=== PATIENT | female | born 1975 | race Caucasian/White ===

== ENCOUNTER 2021-05-18 21:58 | Emergency (ER) | payer SELFPAY ==
[~2021-05-18] VITALS: Ht 172 cm; Wt 85.0 kg
[2021-05-18 23:35] LABS: BILIRUBIN,URINE 1+ (NEGATIVE); CLARITY,URINE CLEAR; COLOR,URINE ORANGE; GLUCOSE, URINE (UA) NEGATIVE (NEGATIVE); KETONES,URINE NEGATIVE (NEGATIVE); LEUKOCYTE ESTERASE ,URINE NEGATIVE (NEGATIVE); NITRITE,URINE NEGATIVE (NEGATIVE); PROTEIN,URINE 1+ (NEGATIVE)
[2021-05-18 23:46] LABS: AMPHETAMINE SCREEN, URINE POSITIVE (NEGATIVE); BENZODIAZEPINES SCREEN URINE NEGATIVE (NEGATIVE); COCAINE SCREEN URINE NEGATIVE (NEGATIVE); HCG,QUALITATIVE URINE NEGATIVE (NEGATIVE); METHAMPHETAMINE SCREEN URINE S POSITIVE (NEGATIVE)
[2021-05-18 23:47] LABS: BACTERIA,URINE NEGATIVE /HPF; BARBITURATE SCREEN URINE NEGATIVE (NEGATIVE); CANNABINOID SCREEN, URINE NEGATIVE (NEGATIVE); METHADONE STAT NEGATIVE (NEGATIVE); OPIATE SCREEN URINE NEGATIVE (NEGATIVE); OXYCODONE STAT NEGATIVE (NEGATIVE); PROPOXYPHENE STAT NEGATIVE (NEGATIVE); TRICYCLIC ANTIDEPRESSANTS SCRE NEGATIVE (NEGATIVE)
[2021-05-19] MEDS ORDERED: CYCL10TA9 PO (00:48)
[2021-05-19] MEDS ORDERED: NAPR500T8 PO (00:48)
--- NOTE | 2021-05-19 00:48 | ED Back Pain ---
General Chief Complaint: Back Problems Stated Complaint: BACK PAIN Nursing Triage Note: Pt to ED via [facility] EMs. Pt reports low back pain starting on 05/13. Pt saw chiropractor with no relief. Pt has been taking Tylenol at home for pain relief, stating she is taking #6 500mg tablets at a time for pain relief. 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 Source of Information: Patient History of Present Illness Date Seen by Provider: May 18, 2021 Time Seen by Provider: 23:10 Initial Comments PT ARRIVES VIA [facility] C/O LOWER BACK PAIN SINCE Sunday05/13/21 NO KNOWN INJURY HAS HAD BACK PAIN FOR OVER 10 YEARS NO RADIATION OF PAIN NO PARESTHESIAS OR MOTOR DEFICITS NO PROBLEMS WITH BOWEL OR BLADDER FUNCTION NO URINARY SYMPTOMS WENT TO CHIROPRACTOR ON Sunday05/16/21--NO RELIEF TOOK ADVIL AND TYLENOL WITHOUT RELIEF LMP--COUPLE OF MONTHS AGO, HAS BEEN SPOTTING OFF AND ON. PT HAS HAD BTL. HAS NOT HAD COVID VACCINE DENIES ANY SICK CONTACTS DENIES COVID-19 SYMPTOMS Other Comments PCP: [facility] Allergies and Home Medications Allergies Coded Allergies: No Known Drug Allergies (Unverified , 05/18/21) Home Medications Cyclobenzaprine HCl 10 Mg Tablet, 10 MG PO Q8H PRN for SPASMS Prescribed by: EDWARD CHI on 05/19/2147 Naproxen 500 Mg Tablet.dr, 500 MG PO BID Prescribed by: EDWARD CHI on 05/19/2147 Patient Home Medication List Home Medication List Reviewed: Yes Review of Systems Constitutional: no symptoms reported Respiratory: no symptoms reported Cardiovascular: no symptoms reported Gastrointestinal: no symptoms reported Genitourinary: no symptoms reported Control/STD Prophylaxis: Other (BTL) Musculoskeletal: see HPI, back pain Skin: no symptoms reported Psychiatric/Neurological: No Symptoms Reported Past Gasratd-Tyxyhx-Mkgysh Hx Patient Social History Tobacco Use?: Yes (1 PPD) Tobacco type used: Cigarettes Smoking Status: Current Everyday Smoker Use of E-Cig and/or Vaping dev: No Use of E-Cig and/or Vaping Rasta: Never a User Substance use?: Yes Substance type: Methamphetamine Additional substance use comme: + IV METH USE Substance frequency: Several times a month Alcohol Use?: No Pt feels they are or have been: No Past Medical History Surgery/Hospitalization HX: reports no PMH; surgical hx - gallbladder, BTL Surgeries: Yes Gallbladder, Tubal Ligation Respiratory: No Cardiac: No Neurological: No : No Female Reproductive Disorders: Menstrual Problems Genitourinary: No Gastrointestinal: No Musculoskeletal: Yes Chronic Back Pain Endocrine: No HEENT: Yes (POOR DENTITION) Cancer: No Psychosocial: Yes (SUBSTANCE ABUSE) Integumentary: No Blood Disorders: No Physical Exam Vital Signs Vital Signs - First Documented 05/18/21 22:19 Temp 37.0 Pulse 98 Resp 18 B/P (MAP) 120/66 (84) Pulse Ox 96 O2 Delivery Room Air Capillary Refill : Less Than 3 Seconds Height, Weight, BMI Height: '" Weight: lbs. oz. kg; 28.00 BMI Method: General Appearance: Other (EXTREMELY DRAMATIC WHEN STAFF IN ROOM--MOANING, WAILING, MOVING VERY SLOWLY AND VERY DRAMATICALLY. PT IS SLEEPING WITH BLANKET OVER HER HEAD WHEN STAFF LEAVE ROOM. PT FILTHY, MALODOROUS--ODOR OF SKUNK/CAT URINE, WEARING ONLY A T-SHIRT AND UNDERWEAR. NO SHOES--SOLES OF FEET ARE BLACK; SPEECH RAPID AND SOMEWHAT MUMBLED) HEENT: Other (POOR DENTITION--EXTENSIVE DECAY AND MULTIPLE MISSING TEETH) Neck: Full Range of Motion, Normal Inspection, Non Tender, Supple Cardiovascular: Regular Rate, Rhythm, No Edema, No Murmur Respiratory: Normal Breath Sounds, No Accessory Muscle Use, No Respiratory Distress Gastrointestinal: Non Tender, Soft Back: No CVA Tenderness, Other (MIDLINE LOWER LUMBAR TENDERNESS. ) Extremity: Normal Inspection Neurologic/Psychiatric: Alert, Oriented x3, No Motor/Sensory Deficits, chief optometry service II- XII Norm as Tested Skin: Normal Color, Warm/Dry, Tattoos/Piercings (EXTENSIVE TATTOOS), Other (MULTIPLE SORES/SCARS/SCABS TO FACE, ARMS. ) Progress/Results/Core Measures Results/Orders Lab Results Laboratory Tests Test 05/18/21 23:30 Range/Units Urine Color ORANGE Urine Clarity CLEAR Urine pH 6.0 5-9 Urine Specific [place] >=1.030 1.016-1.022 Urine Protein 1+ H NEGATIVE Urine Glucose (UA) NEGATIVE NEGATIVE Urine Ketones NEGATIVE NEGATIVE Urine Nitrite NEGATIVE NEGATIVE Urine Bilirubin 1+ H NEGATIVE Urine Urobilinogen 2.0 < = 1.0 MG/DL Urine Leukocyte Esterase NEGATIVE NEGATIVE Urine RBC (Auto) NEGATIVE NEGATIVE Urine RBC 5-10 H /HPF Urine WBC 5-10 H /HPF Urine Squamous Epithelial Cells 5-10 /HPF Urine Renal Epithelial Cells NONE /HPF Urine Crystals NONE /LPF Urine Bacteria NEGATIVE /HPF Urine Casts NONE /LPF Urine Mucus MODERATE H /LPF Urine Culture Indicated NO Urine Test NEGATIVE NEGATIVE Urine Opiates Screen NEGATIVE NEGATIVE Urine Oxycodone Screen NEGATIVE NEGATIVE Urine Methadone Screen NEGATIVE NEGATIVE Urine Propoxyphene Screen NEGATIVE NEGATIVE Urine Barbiturates Screen NEGATIVE NEGATIVE Ur Tricyclic Antidepressants Screen NEGATIVE NEGATIVE Urine Phencyclidine Screen NEGATIVE NEGATIVE Urine Amphetamines Screen POSITIVE H NEGATIVE Urine Methamphetamines Screen POSITIVE H NEGATIVE Urine Benzodiazepines Screen NEGATIVE NEGATIVE Urine Cocaine Screen NEGATIVE NEGATIVE Urine Cannabinoids Screen NEGATIVE NEGATIVE My Orders Orders - EDWARD CHI DO Drug Screen Stat (Urine) (05/18/21 22:55) Hcg,Qualitative Urine (05/18/21 22:55) Lumbar Spine - 2-3 Views (05/19/21 00:01) Ketorolac Injection (Toradol Injection) (05/19/21 01:00) Orphenadrine Inj (Ed Only) (Norflex Inje (05/19/21 01:00) Diphenhydramine Injection (Benadryl Inje (05/19/21 01:00) Medications Given in ED Current Medications Medications Dose Ordered Sig/Ace Route Start Time Stop Time Status Last Admin Dose Admin Diphenhydramine HCl 25 mg ONCE ONCE IM 05/19/21 01:00 05/19/21 01:01 DC 05/19/21 01:05 25 MG Ketorolac Tromethamine 60 mg ONCE ONCE IM 05/19/21 01:00 05/19/21 01:01 DC 05/19/21 01:05 60 MG Orphenadrine Citrate 60 mg ONCE ONCE IM 05/19/21 01:00 05/19/21 01:01 DC 05/19/21 01:05 60 MG Vital Signs/I&O 05/18/21 05/19/21 22:19 01:19 Temp 37.0 37.0 Pulse 98 98 Resp 18 18 B/P (MAP) 120/66 (84) 109/49 (84) Pulse Ox 96 96 O2 Delivery Room Air Blood Pressure Mean: 84 Progress Progress Note : Progress Note GIVEN TORADOL, NORFLEX AND BENADRYL WITH SOME IMPROVEMENT IN SYMPTOMS Departure Impression Primary Impression: Low back pain Additional Impressions: Chronic back pain Methamphetamine use Disposition: 01 HOME, SELF-CARE Condition: Stable Departure-Patient Inst. Decision time for Depature: 00:40 Referrals: [facility] Patient Instructions: Low Back Pain (DC) Add. Discharge Instructions: MOIST HEAT TO AREA AT 20 MINUTE INTERVALS NO LIFTING OVER 5 LBS, NO TWISTING OR BENDING AT WAIST FOLLOW UP WITH [facility] IN 3-4 DAYS IF NO BETTER All discharge instructions reviewed with patient and/or family. Voiced unders tanding. Scripts Naproxen (Naproxen) 500 Mg Tablet.dr 500 MG PO BID, #20 TAB Prov: EDWARD CHI DO 05/19/21 Cyclobenzaprine HCl (Cyclobenzaprine HCl) 10 Mg Tablet 10 MG PO Q8H PRN for SPASMS, #15 TAB 0 Refills Prov: EDWARD CHI DO 05/19/21 EDWARD CHI DO May 19, 2021 00:48
[2021-05-19] MEDS ORDERED: ORPHENADRINE 60 MG/2 ML (NORFLEX) AMP (ED ONLY) IM ONE (01:00)
[2021-05-19] MEDS ORDERED: KETOROLAC 60 MG/2 ML VIAL IM ONE (01:00)
[2021-05-19] MEDS ORDERED: diphenhydrAMINE 50 MG/ML INJ (BENADRYL) IM ONE (01:00)
[2021-05-19 01:19] VITALS: BP 109/49
--- NOTE | 2021-05-19 07:06 | Diagnostic Imaging Report ---
EXAM: Lumbar spine radiographs Exam date: 05/19/2021 COMPARISON: None. HISTORY: Low back pain. TECHNIQUE: 3 views of the lumbar spine. FINDINGS: Vertebral body heights and alignment are normal. There is mild lumbar spondylosis. No acute fracture, dislocation, or destructive osseous process is seen. There appears to be some foraminal stenosis at L5-S1 secondary to facet hypertrophy. Disc heights are preserved. IMPRESSION: Degenerative changes of lumbar spine without acute osseous abnormality. Dictated by: Dictated on workstation # [id number]
== END 2021-05-19 01:19 | disposition home or self-care (01) ==
LOC: EDUNIT# 21:58 → ER 22:01
DX: G89.29 Other chronic pain (principal); M54.5 Low back pain; F15.90 Other stimulant use, unspecified, uncomplicated; F17.210 Nicotine dependence, cigarettes, uncomplicated; Z32.02 Encounter for pregnancy test, result negative
CPT/HCPCS: 72100; 80306; 81000; 84703; 96372

== ENCOUNTER 2021-06-24 18:30 | Emergency (ER) | payer SELFPAY ==
[~2021-06-24] VITALS: Ht 172.7 cm; Wt 81.2 kg
[2021-06-24 19:14] LABS: BASOPHILS # (AUTO) 0.1 10^3/uL (0.0-0.1); BASOPHILS % (AUTO) 1 % (0-10); EOSINOPHILS # (AUTO) 0.1 10^3/uL (0.0-0.3); EOSINOPHILS % (AUTO) 0 % (0-10); HEMATOCRIT 35 % (35-52); HEMOGLOBIN 11.1 g/dL (11.5-16.0); LYMPHOCYTES # (AUTO) 2.2 10^3/uL (1.0-4.0); LYMPHOCYTES % (AUTO) 16 % (12-44); MEAN CORPUSCULAR HEMOGLOBIN 28 pg (25-34); MEAN CORPUSCULAR HGB CONC 32 g/dL (32-36); MEAN CORPUSCULAR VOLUME 88 fL (80-99); MEAN PLATELET VOLUME 9.1 fL (9.0-12.2); MONOCYTES # (AUTO) 0.7 10^3/uL (0.0-1.0); MONOCYTES % (AUTO) 5 % (0-12); NEUTROPHILS # (AUTO) 10.8 10^3/uL (1.8-7.8); NEUTROPHILS % (AUTO) 78 % (42-75); PLATELET COUNT 530 10^3/uL (130-400); WHITE BLOOD COUNT 13.9 10^3/uL (4.3-11.0)
--- NOTE | 2021-06-24 19:32 | ED Back Pain ---
General Chief Complaint: Back Problems Stated Complaint: BACK PAIN, POSSIBLE ABSCESS Nursing Triage Note: PT TO FT2 FOR FURTHER EVALUATION OF OSTEOMYLETIS OF SPINE. WAS SENT BY [facility] FOR FURTHER WORK UP. Source of Information: Patient Exam Limitations: No Limitations (LALY AYALA STUDENT) History of Present Illness Date Seen by Provider: Jun 24, 2021 Time Seen by Provider: 19:00 Initial Comments Pt presents to ED via private conveyance with complaints of low back pain. She states that it started about 6wks ago and has been seeing Dr. Donaldson at [facility]. The pain has been worsening since it began, currently rates it 6/10 to her L lower back with occasional shooting pain down her LLE to her toes. She has been having progressive difficulty with weight bearing and using a chair to get around at home. She has been taking 2500mg Tylenol TID for about 2wks that helps with the pain; last has taken 4500mg today. She had an MRI today that shows osteomyelitis with possible epidural abscess at L5-S1; Dr Donaldson was unable to find a hospital for transfer so she was told to come to the ED. She has had 2x episodes of fever/chills this past week. Denies chest pain, SOB, N/V. She is a prior IV Meth user, stopped about 2mos ago. Location: Lumbar Spine (L lumbo-sacral) Timing/Duration: Other (6wks) Severity: Moderate Pain/Injury Location: Back (L lower back) Radiation: Other (radiation down LLE to toes) Method of Injury: Other (IVDU) Modifying Factors: Improves With Immobilization; Worse With Movement; Improves With Pain Medication (2500mg Acetaminophen TID), Improves With Rest Associated Symptoms: fever; No numbness in legs/feet, No tingling in legs/feet, No sensory/motor loss; other (tingling in BUE) (LALY AYALA STUDENT) Initial Comments Mili (YOBANY CROSS APRN) Allergies and Home Medications Allergies Coded Allergies: No Known Drug Allergies (Unverified , 05/18/21) Home Medications Cyclobenzaprine HCl 10 Mg Tablet, 10 MG PO Q8H PRN for SPASMS Prescribed by: EDWARD CHI on 05/19/21 0048 Naproxen 500 Mg Tablet.dr, 500 MG PO BID Prescribed by: EDWARD CHI on 05/19/21 0048 Patient Home Medication List Home Medication List Reviewed: Yes (LALY AYALA) Review of Systems Constitutional: chills, fever EENTM: No ear pain, No vision loss Respiratory: No cough, No hemoptysis, No short of breath Cardiovascular: No chest pain, No edema Gastrointestinal: No abdominal pain, No constipation; diarrhea (1x episode of dark loose stool earlier today) Genitourinary: No dysuria, No frequency, No hematuria Musculoskeletal: back pain (L lumbo-sacral); No joint swelling, No muscle pain Skin: No change in color, No change in hair/nails Psychiatric/Neurological: Denies Headache, Denies Numbness, Denies Paresthesia (LALY AYALA) All Other Systems Reviewed Negative Unless Noted: Yes (LALY AYALA) Past Rcbxdqw-Rzisal-Lsjqyx Hx Patient Social History Tobacco Use?: Yes Smoking Status: Current Everyday Smoker Use of E-Cig and/or Vaping dev: No Substance use?: No Alcohol Use?: No Pt feels they are or have been: No (LALY AYALA) Seasonal Allergies Seasonal Allergies: No (LALY AYALA) Past Medical History Surgery/Hospitalization HX: reports no PMH; surgical hx - gallbladder, BTL Surgeries: Yes Gallbladder, Tubal Ligation Respiratory: No Cardiac: No Neurological: No Female Reproductive Disorders: Menstrual Problems Genitourinary: No Gastrointestinal: No Musculoskeletal: Yes Chronic Back Pain Endocrine: No HEENT: Yes (POOR DENTITION) Cancer: No Psychosocial: Yes (SUBSTANCE ABUSE) Integumentary: No Blood Disorders: No (LALY AYALA) Physical Exam Vital Signs Vital Signs - First Documented 06/24/21 18:41 Temp 36.8 Pulse 120 Resp 22 B/P (MAP) 119/68 (85) Pulse Ox 97 O2 Delivery Room Air (YOBANY CROSS APRN) Vital Signs Capillary Refill : Less Than 3 Seconds (LALY AYALA STUDENT) Height, Weight, BMI Height: '" Weight: lbs. oz. kg; 27.00 BMI Method: General Appearance: No Apparent Distress, WD/WN HEENT: PERRL/EOMI, Normal ENT Inspection, Pharynx Normal Neck: Full Range of Motion, Normal Inspection, Non Tender, Supple Cardiovascular: Regular Rate, Rhythm, No Edema, No Murmur, Normal Peripheral Pulses Respiratory: Chest Non Tender, Lungs Clear, Normal Breath Sounds, No Accessory Muscle Use, No Respiratory Distress Peripheral Pulses: 2+ Dorsalis Pedis (R), 2+ Left Dors-Pedis (L), 2+ Radial Pulses (R), 2+ Radial Pulses (L) Gastrointestinal: Normal Bowel Sounds, Soft; No Distended, No Guarding; Tenderness (mild tenderness to RUQ, negative [place] sign) Back: Normal Inspection, No CVA Tenderness, No Vertebral Tenderness, Other (tenderness to L lumbosacral junction, radiation down LLE) Extremity: Normal Capillary Refill, Normal Inspection, Non Tender, No Calf Tenderness, No Pedal Edema, Other (limited ROM/weightbearing LLE, uses chair at home for mobility) Neurologic/Psychiatric: Alert, Oriented x3, No Motor/Sensory Deficits, Normal Mood/Affect Skin: Normal Color, Warm/Dry Lymphatic: No Adenopathy (LALY AYALA MED STUDENT) Distal pulses of the feet are 2+ bilaterally. Reflexes intact. No saddle anesthesia or loss of bowel or bladder control. Strength bilateral lower extremities with plantarflexion and dorsiflexion of the foot is 5 out of 5 bilaterally. Normal sensation without tingling or paresthesias. (YOBANY CROSS APRN) Progress/Results/Core Measures Results/Orders Lab Results Laboratory Tests Test 06/24/21 18:50 06/24/21 20:03 Range/Units White Blood Count 13.9 H 4.3-11.0 10^3/uL Red Blood Count 3.94 3.80-5.11 10^6/uL Hemoglobin 11.1 L 11.5-16.0 g/dL Hematocrit 35 35-52 % Mean Corpuscular Volume 88 80-99 fL Mean Corpuscular Hemoglobin 28 25-34 pg Mean Corpuscular Hemoglobin Concent 32 32-36 g/dL Red Cell Distribution Width 13.4 10.0-14.5 % Platelet Count 530 H 130-400 10^3/uL Mean Platelet Volume 9.1 9.0-12.2 fL Immature Granulocyte % (Auto) 1 % Neutrophils (%) (Auto) 78 H 42-75 % Lymphocytes (%) (Auto) 16 12-44 % Monocytes (%) (Auto) 5 0-12 % Eosinophils (%) (Auto) 0 0-10 % Basophils (%) (Auto) 1 0-10 % Neutrophils # (Auto) 10.8 H 1.8-7.8 10^3/uL Lymphocytes # (Auto) 2.2 1.0-4.0 10^3/uL Monocytes # (Auto) 0.7 0.0-1.0 10^3/uL Eosinophils # (Auto) 0.1 0.0-0.3 10^3/uL Basophils # (Auto) 0.1 0.0-0.1 10^3/uL Immature Granulocyte # (Auto) 0.1 0.0-0.1 10^3/uL Erythrocyte Sedimentation Rate 68 H 0-20 MM/HR Sodium Level 141 135-145 MMOL/L Potassium Level 3.4 L 3.6-5.0 MMOL/L Chloride Level 108 H 98-107 MMOL/L Carbon Dioxide Level 22 21-32 MMOL/L Anion Gap 11 5-14 MMOL/L Blood Urea Nitrogen 13 7-18 MG/DL Creatinine 0.69 0.60-1.30 MG/DL Estimat Glomerular Filtration Rate 92 BUN/Creatinine Ratio 19 Glucose Level 92 70-105 MG/DL Lactic Acid Level 0.59 0.50-2.00 MMOL/L Calcium Level 10.2 H 8.5-10.1 MG/DL Corrected Calcium 10.3 H 8.5-10.1 MG/DL Total Bilirubin 0.3 0.1-1.0 MG/DL Aspartate Amino Transf (AST/SGOT) 15 5-34 U/L Alanine Aminotransferase (ALT/SGPT) 19 0-55 U/L Alkaline Phosphatase 104 40-136 U/L C-Reactive Protein High Sensitivity 2.22 H 0.00-0.50 MG/DL Total Protein 8.6 H 6.4-8.2 GM/DL Albumin 3.9 3.2-4.5 GM/DL Acetaminophen Level 13 10-30 UG/ML Urine Color YELLOW Urine Clarity SL CLOUDY Urine pH 5.0 5-9 Urine Specific [place] >=1.030 1.016-1.022 Urine Protein TRACE H NEGATIVE Urine Glucose (UA) NEGATIVE NEGATIVE Urine Ketones TRACE H NEGATIVE Urine Nitrite NEGATIVE NEGATIVE Urine Bilirubin 1+ H NEGATIVE Urine Urobilinogen 1.0 < = 1.0 MG/DL Urine Leukocyte Esterase NEGATIVE NEGATIVE Urine RBC (Auto) NEGATIVE NEGATIVE Urine RBC NONE /HPF Urine WBC 0-2 /HPF Urine Squamous Epithelial Cells 10-25 H /HPF Urine Crystals NONE /LPF Urine Bacteria MODERATE H /HPF Urine Casts NONE /LPF Urine Mucus MODERATE H /LPF Urine Culture Indicated YES Urine Opiates Screen NEGATIVE NEGATIVE Urine Oxycodone Screen NEGATIVE NEGATIVE Urine Methadone Screen NEGATIVE NEGATIVE Urine Propoxyphene Screen NEGATIVE NEGATIVE Urine Barbiturates Screen NEGATIVE NEGATIVE Ur Tricyclic Antidepressants Screen NEGATIVE NEGATIVE Urine Phencyclidine Screen NEGATIVE NEGATIVE Urine Amphetamines Screen NEGATIVE NEGATIVE Urine Methamphetamines Screen NEGATIVE NEGATIVE Urine Benzodiazepines Screen NEGATIVE NEGATIVE Urine Cocaine Screen NEGATIVE NEGATIVE Urine Cannabinoids Screen NEGATIVE NEGATIVE (YOBANY CROSS APRN) My Orders Orders - YOBANY CROSS APRN Cbc With Automated Diff (06/24/21 19:08) Erythrocyte Sedimentation Rate (06/24/21 19:08) Hs C Reactive Protein (06/24/21 19:08) Blood Culture (06/24/21 19:08) Lactic Acid Analyzer (06/24/21 19:08) Ua Culture If Indicated (06/24/21 19:08) Drug Screen Stat (Urine) (06/24/21 19:08) Ed Iv/Invasive Line Start (06/24/21 19:08) Lactated Ringers (Lr 1000 Ml Iv Solution (06/24/21 19:45) Cefepime Injection (Maxipime Injection) (06/24/21 19:45) Vancomycin Injection (Vancomycin Injecti (06/24/21 19:45) Comprehensive Metabolic Panel (06/24/21 19:34) Acetaminophen (06/24/21 19:39) Fentanyl Inj (Sublimaze Injection) (06/24/21 20:00) Urine Culture (06/24/21 20:03) Vancomycin Injection (Vancomycin Injecti (06/24/21 20:46) Vancomycin Injection (Vancomycin Injecti (06/24/21 20:46) Ns (Ivpb) (Sodium Chloride 0.9%) (06/24/21 20:46) Ketorolac Injection (Toradol Injection) (06/24/21 21:15) Oxycodone/Apap 5/325mg Tablet (Percocet (06/24/21 22:45) (YOBANY CROSS APRN) Medications Given in ED Current Medications Medications Dose Ordered Sig/Ace Route Start Time Stop Time Status Last Admin Dose Admin Cefepime HCl 2000 mg/Sterile Water 20 ml @ 240 mls/hr ONCE ONCE IV 06/24/21 19:45 06/24/21 19:49 DC 06/24/21 20:57 240 MLS/HR Fentanyl Citrate 75 mcg ONCE ONCE IVP 06/24/21 20:00 06/24/21 20:01 DC 06/24/21 20:12 75 MCG Ketorolac Tromethamine 15 mg ONCE ONCE IVP 06/24/21 21:15 06/24/21 21:16 DC 06/24/21 21:30 15 MG (YOBANY CROSS SLOT OPERATIONS DIRECTOR) Vital Signs/I&O 06/24/21 18:41 Temp 36.8 Pulse 120 Resp 22 B/P (MAP) 119/68 (85) Pulse Ox 97 O2 Delivery Room Air (YOBANY CROSS SLOT OPERATIONS DIRECTOR) Blood Pressure Mean: 85 Progress Progress Note : Time: 01:35 Progress Note I attest that I saw this patient alongside the medical student and agree with his documented history, physical exam and review of systems except as otherwise noted. (SIMON HENDERSON) Departure Communication (Admissions) Family Conversation 2101-[facility] unable to accept. [facility] unable to accept. [place] control consulted for help finding a bed. I have seen the patient as well and agree with the clinical exam and the plan. She has significant low back pain that nearly has her bedbound. She did stop methamphetamine use 8 weeks ago and the symptoms began about 6 weeks ago. Former IV drug user. 2240-Dr Kelley at [facility] has accepted pt. [facility] [place] [place] NAME: MEL HUTCHINSON [facility] REC#: [id number] PT STATUS: REG CLI : 1975 PHYSICIAN: MARY REBOLLEDO ADMIT DATE: 06/24/21/RAD Draft Date of Exam:06/24/21 MRI LUMBAR SPINE W/O CONTRAST PROCEDURE: MRI lumbar spine. TECHNIQUE: Multiplanar, multisequence MRI of the lumbar spine was performed without contrast. INDICATION: Lower back pain with left lower extremity radiculopathy. COMPARISON: None. FINDINGS: For the purposes of this exam, last well-formed disc space is noted at the L5-S1 level. Static alignment is maintained. There is no significant anterolistheses or retrolisthesis. There is no evidence of jumped facets. There is, however, marked abnormal signal involving essentially the entirety of the vertebral bodies of L5 and S1. There is also severe loss of the intervertebral disc space with abnormal signal extending into the intervertebral disc space. There is also extension of the underlying process into the anterior prevertebral soft tissue structures as well as posteriorly in the epidural space. Epidural fluid collection/abscess cannot be entirely excluded. As a result, there is asymmetric narrowing of the spinal canal and stenosis of the left lateral recess. There is also extension into the left neuroforamen resulting in obliteration of normal fatty signal within the left neuroforamen. Findings are all concerning for osteomyelitis discitis with potential epidural abscess formation. No acute fracture is seen. L4 hemangioma is noted. Visualized portions of the distal cord are unremarkable. Conus terminates at approximately the L1-L2 level. No other abnormal intrathecal filling defect is seen. There are mild posterior disc bulges at L2-L3 and L3-L4. There is, however, no significant spinal canal or neuroforaminal stenosis throughout the remainder of the exam. IMPRESSION: Findings most concerning for L5-S1 osteomyelitis discitis with potential epidural abscess formation. Neurosurgical consultation is recommended. Report was called and faxed at 4:50 p.m., by dannie. Dictated on workstation # [id number] Dict: 06/24/21 1632 Trans: 06/24/21 1652 DANNIE [id number] Interpreted by: IAN COCHRAN MD Electronically signed by: (YOBANY CROSS APRN) Impression Primary Impression: Osteomyelitis of lumbar vertebra Additional Impression: Epidural abscess Disposition: T-[facility] Condition: Stable Transfer Transfer Reason: Exceeds level of care Time Spoke to Accepting Phy: 22:40 Transfer Progress Notes Yobany Cross APRN discussed the case with Dr. Rosen and the patient is ac cepted to [facility] the [place]. Transfer Time: 00:11 Transfer Facility: [facility] Method of Transfer: EMS ([facility]) (SIMON HENDERSON) Departure-Patient Inst. Referrals: [facility] [place] [facility] (PCP/Family) Primary Care Physician LALY AYALA STUDENT Jun 24, 2021 19:32 YOBANY CROSS APRN Jun 24, 2021 19:59 SIMON HENDERSON Jun 25, 2021 01:37
[2021-06-24] MEDS ORDERED: CEFEPIME INJECTION 2,000 MG in WATER (STERILE) FOR INJECTION 20 ML IV ONE (19:45)
[2021-06-24] MEDS ORDERED: LACTATED RINGERS 1,000 ML IV SCH (19:45)
[2021-06-24] MEDS ORDERED: VANCOMYCIN INJECTION 1,250 MG in NS (IVPB) 250 ML IV SCH (19:45)
[2021-06-24 19:55] LABS: ERYTHROCYTE SEDIMENTATION RATE 68 MM/HR (0-20)
[2021-06-24] MEDS ORDERED: fentaNYL INJ 100 MCG/2 ML AMP IVP ONE (20:00)
[2021-06-24 20:15] LABS: CLARITY,URINE SL CLOUDY; COLOR,URINE YELLOW; GLUCOSE, URINE (UA) NEGATIVE (NEGATIVE); KETONES,URINE TRACE (NEGATIVE); LEUKOCYTE ESTERASE ,URINE NEGATIVE (NEGATIVE); NITRITE,URINE NEGATIVE (NEGATIVE); PROTEIN,URINE TRACE (NEGATIVE)
[2021-06-24 20:16] LABS: ALBUMIN 3.9 GM/DL (3.2-4.5); POTASSIUM 3.4 MMOL/L (3.6-5.0)
[2021-06-24 20:17] LABS: CALCIUM 10.2 MG/DL (8.5-10.1)
[2021-06-24 20:19] LABS: TOTAL PROTEIN 8.6 GM/DL (6.4-8.2)
[2021-06-24 20:20] LABS: BILIRUBIN,TOTAL 0.3 MG/DL (0.1-1.0)
[2021-06-24 20:22] LABS: CREATININE SERUM 0.69 MG/DL (0.60-1.30)
[2021-06-24 20:25] LABS: AMPHETAMINE SCREEN, URINE NEGATIVE (NEGATIVE); BARBITURATE SCREEN URINE NEGATIVE (NEGATIVE); BENZODIAZEPINES SCREEN URINE NEGATIVE (NEGATIVE); CANNABINOID SCREEN, URINE NEGATIVE (NEGATIVE); COCAINE SCREEN URINE NEGATIVE (NEGATIVE); METHADONE STAT NEGATIVE (NEGATIVE); METHAMPHETAMINE SCREEN URINE S NEGATIVE (NEGATIVE); OPIATE SCREEN URINE NEGATIVE (NEGATIVE); OXYCODONE STAT NEGATIVE (NEGATIVE); PROPOXYPHENE STAT NEGATIVE (NEGATIVE); TRICYCLIC ANTIDEPRESSANTS SCRE NEGATIVE (NEGATIVE)
[2021-06-24 20:26] LABS: BILIRUBIN,URINE 1+ (NEGATIVE)
[2021-06-24 20:27] LABS: BACTERIA,URINE MODERATE /HPF; WBC,URINE 0-2 /HPF
[2021-06-24] MEDS ORDERED: NS (IVPB) 250 ML ONE (20:46)
[2021-06-24] MEDS ORDERED: VANCOMYCIN 500 MG/VIAL IV ONE (20:46)
[2021-06-24] MEDS ORDERED: VANCOMYCIN 1000 MG/VIAL ONE (20:46)
[2021-06-24] MEDS ORDERED: KETOROLAC 30 MG/ML VIAL IVP ONE (21:15)
[2021-06-24] MEDS ORDERED: oxyCODONE/APAP 5/325MG (PERCOCET 5) TABLET PO ONE (22:45)
[2021-06-25 00:10] VITALS: BP 111/67
== END 2021-06-25 00:11 | disposition short-term general hospital (02) ==
LOC: EDUNIT# 18:30 → ER 18:34
DX: M46.26 Osteomyelitis of vertebra, lumbar region (principal); G06.2 Extradural and subdural abscess, unspecified; F17.290 Nicotine dependence, other tobacco product, uncomplicated
CPT/HCPCS: 80053; 80306; 81000; 83605; 85025; 85652; 86141; 87040; 87088; 99284; G0480; 36415; 80329; 96374; 96375

== ENCOUNTER → 2021-06-24 | Outpatient (CLI) | payer SELFPAY ==
[~2021-06-24] MED LIST: CYCL10TA9 PO; NAPR500T8 PO
--- NOTE | 2021-06-24 16:54 | Diagnostic Imaging Report ---
PROCEDURE: MRI lumbar spine. TECHNIQUE: Multiplanar, multisequence MRI of the lumbar spine was performed without contrast. INDICATION: Lower back pain with left lower extremity radiculopathy. COMPARISON: None. FINDINGS: For the purposes of this exam, last well-formed disc space is noted at the L5-S1 level. Static alignment is maintained. There is no significant anterolistheses or retrolisthesis. There is no evidence of jumped facets. There is, however, marked abnormal signal involving essentially the entirety of the vertebral bodies of L5 and S1. There is also severe loss of the intervertebral disc space with abnormal signal extending into the intervertebral disc space. There is also extension of the underlying process into the anterior prevertebral soft tissue structures as well as posteriorly in the epidural space. Epidural fluid collection/abscess cannot be entirely excluded. As a result, there is asymmetric narrowing of the spinal canal and stenosis of the left lateral recess. There is also extension into the left neuroforamen resulting in obliteration of normal fatty signal within the left neuroforamen. Findings are all concerning for osteomyelitis discitis with potential epidural abscess formation. No acute fracture is seen. L4 hemangioma is noted. Visualized portions of the distal cord are unremarkable. Conus terminates at approximately the L1-L2 level. No other abnormal intrathecal filling defect is seen. There are mild posterior disc bulges at L2-L3 and L3-L4. There is, however, no significant spinal canal or neuroforaminal stenosis throughout the remainder of the exam. IMPRESSION: Findings most concerning for L5-S1 osteomyelitis discitis with potential epidural abscess formation. Neurosurgical consultation is recommended. Report was called and faxed at 4:50 p.m., by ruben. Dictated by: Dictated on workstation # [id number]
== END ==
LOC: RAD 13:15
PROVIDERS: ATTEND Nurse Practitioner Community Health
DX: M54.17 Radiculopathy, lumbosacral region (principal)
CPT/HCPCS: 72148

== ENCOUNTER 2021-07-09 12:01 | Emergency (ER) | payer SELFPAY ==
[~2021-07-09] VITALS: Ht 172.7 cm; Wt 75.7 kg
--- OUTSIDE RECORDS SUMMARY | 2021-07-09 12:06 | XMS REPORT | Encounter Summary ---
Author Author [facility] Organization [facility] Address Unknown Phone Unavailable Care Team Providers Care Assistant Women'S Rowing Coach Name Role Phone PCP Unavailable Encounter Details Care Team Description Date Type Department Vinnie, Default Authenticator [address] [place] [address] 06/24/2021 [facility] [email or web address] [facility] [employer] [facility] [address] [place] [address] Social History Date Tobacco Use Types Packs/Day Years Used Never Assessed Sex Assigned at Date Recorded Not on file documented as of this encounter Plan of Treatment Care Team Description Date Type Specialty Spencer Squires MD [address] [place] [address] [phone] 07/15/2021 Appointment Infusion Therapy Date/Time Name Type Priority Associated Diag noses 06/25/2021 3:38 AM CDT [employer] outside images External Films Routine for PACS documented as of this encounter Procedures Comments Procedure Name Priority Date/Time Associated Diag nosis P[employer]SH[employer] OUTSIDE IMAGES Routine 06/25/2021 FOR PACS 3:38 AM CDT documented in this encounter Visit Diagnoses Not on filedocumented in this encounter
--- OUTSIDE RECORDS SUMMARY | 2021-07-09 12:06 | XMS REPORT | Encounter Summary ---
Author Author [facility] Organization [facility] Address Unknown Phone Unavailable Care Team Providers Care Greenkeeper Name Role Phone Jefferson Donaldson DO PCP Encounter Details Care Team Description Date Type Department Janna Mercado MD [address] [place], [place] [id number] 06/24/2021 Orders for [facility] [address] [place] [id number] Social History Date Tobacco Use Types Packs/Day Years Used Never Assessed Sex Assigned at Date Recorded Not on file documented as of this encounter Plan of Treatment Care Team Description Date Type Specialty Spencer Squires MD [address] [place], [place] [id number] 07/15/2021 Appointment Infusion Therapy documented as of this encounter Visit Diagnoses Not on filedocumented in this encounter
--- OUTSIDE RECORDS SUMMARY | 2021-07-09 12:06 | XMS REPORT | Encounter Summary ---
Author Author [facility] Organization [facility] Address Unknown Phone Unavailable Care Team Providers Care Natural Sciences Manager Name Role Phone Jefferson Donaldson DO PCP Encounter Details Care Team Description Date Type Department Spencer Squires MD [address] [place], [place] [id number] 06/30/2021 Orders Only [facility] [address] [place], [place] [id number] Social History Date Tobacco Use Types Packs/Day Years Used Current Every Day Smoker 0.5 30 Smokeless Tobacco: Never Used Comments Alcohol Use Standard Drinks/Week Not Currently 0 (1 standard drink = 0.6 o z pure alcohol) Sex Assigned at Date Recorded Not on file documented as of this encounter Plan of Treatment Care Team Description Date Type Specialty Spencer Squires MD [address] [place] [address] [phone] 07/15/2021 Appointment Infusion Therapy documented as of this encounter Visit Diagnoses Not on filedocumented in this encounter
--- OUTSIDE RECORDS SUMMARY | 2021-07-09 12:06 | XMS REPORT | Encounter Summary ---
Author Author [facility] Organization [facility] Address Unknown Phone Unavailable Care Team Providers Care Court Manager Name Role Phone Jefferson Donaldson DO PCP Reason for Visit * Episode Based Medication (Routine) Referred By Contact Referred To Contact Status Reason Specialty Diagnoses / Procedures Spencer Squires MD [address] [place] [address] [facility] [address] [place] [address] Authorized Diagnoses Osteomyelitis of lumbar spine (HCC) P rocedures [place] INJECTION, DALBAVANCIN Encounter Details Care Team Description Date Type Department Spencer Squires MD [address] [place], [place] [id number] Osteomyelitis of lumbar spine (HCC) (Emiliana sanjay Dx) 07/08/2021 [facility] Encounter [address] [place] [address] Social History Date Tobacco Use Types Packs/Day Years Used Current Every Day Smoker 0.5 30 Smokeless Tobacco: Never Used Comments Alcohol Use Standard Drinks/Week Not Currently 0 (1 standard drink = 0.6 o z pure alcohol) Sex Assigned at Date Recorded Not on file documented as of this encounter Last Filed Vital Signs Reading Time Taken Comments Vital Sign 108/74 07/08/2021 11:01 AM CDT Blood Pressure 102 07/08/2021 11:01 AM CDT Pulse 37.1 C (98.8 F) 07/08/2021 11:01 AM CDT Temperature 18 07/08/2021 11:01 AM CDT Respiratory Rate 96% 07/08/2021 11:01 AM CDT Oxygen Saturation - - Inhaled Oxygen Concentration - - Weight - - Height - - Body Mass Index documented in this encounter Medications at Time of Discharge Start Date End Date Medication Sig Dispensed Refills 06/30/2021 08/11/2021 levoFLOXacin (LEVAQUIN) Take 1 tablet 42 tablet 0 750 MG tablet (750 mg total) by mouth daily. documented as of this encounter Plan of Treatment Care Team Description Date Type Specialty Spencer Squires MD [address] [place] [address] [phone] 07/15/2021 Appointment Infusion Therapy documented as of this encounter Visit Diagnoses Diagnosis Osteomyelitis of lumbar spine (HCC) - P rimary documented in this encounter Administered Medications Action Date Dose Rate Site Medication Order MAR Action 07/08/2021 11:14 AM CDT 1,000 mg 600 mL/hr dalbavancin 1,000 mg in dextrose (D5W) 5 New Bag % 250 mL IVPB 1,000 mg, Intravenous, Administer over 30 Minutes, Once, On Sun07/08/21 at 1100, For 1 dose, REFRIGERATE Infus e over 30 minutes. If a common IV line is being used to administer other drugs in addition to dalbavancin, the line shoul d be flushed before and after infusion with D5W. documented in this encounter
--- OUTSIDE RECORDS SUMMARY | 2021-07-09 12:06 | XMS REPORT | Encounter Summary ---
Author Author [facility] Organization [facility] Address Unknown Phone Unavailable Care Team Providers Care Tonal Regulator Name Role Phone DonaldsonPlacido gonzales Esperanza MCMAHON PCP Reason for Visit * Auth/Cert Referred By Contact Referred To Contact Status Reason Specialty Diagnoses / Procedures Diagnoses Osteomyelitis of lumbar spine Osteomyelitis of lumbar spine (HCC) Vertebral osteomyelitis (HCC) Encounter Details Care Team Description Date Type Department Hospitalist, Physician Devante Swartz DO [address] [place], [place] [id number] Spencer Squires MD [address] [place], [place] [phone] [facility] [id number] [facility]21 [place], [place] [id number] Social History Date Tobacco Use Types Packs/Day Years Used Current Every Day Smoker 0.5 30 Smokeless Tobacco: Never Used Tobacco Cessation: Ready to Quit: No Comments Alcohol Use Standard Drinks/Week Not Currently 0 (1 standard drink = 0.6 o z pure alcohol) Sex Assigned at Date Recorded Not on file documented as of this encounter Last Filed Vital Signs Reading Time Taken Comments Vital Sign 102/80 06/30/2021 11:33 AM CDT Blood Pressure 100 06/30/2021 11:33 AM CDT Pulse 37.3 C (99.2 F) 06/30/2021 11:33 AM CDT Temperature 18 06/30/2021 11:33 AM CDT Respiratory Rate 95% 06/30/2021 11:33 AM CDT Oxygen Saturation - - Inhaled Oxygen Concentration 81.5 kg (179 lb 9.6 oz) 06/30/2021 5:23 AM CDT Weight - - Height - - Body Mass Index documented in this encounter Discharge Summaries * Spencer Squires MD - 06/30/2021 12:47 PM CDT [facility] Discharge Summary Patient Name: Jill Marquez Age: 45 y.o. Sex: female Admission Date: 06/25/2021 Length of Stay: 5 Days Discharge Date: PCP on Record: Placido Donaldson, COAL SAMPLER Admission Diagnoses: Osteomyelitis of lumbar spine Osteomyelitis of lumbar spine (HCC) Vertebral osteomyelitis (HCC) Discharge Diagnoses: Principal Problem: Osteomyelitis of lumbar spine (HCC) Active Problems: IVDU (intravenous drug user) Consults: ID and IR, Neurosurgery Hospital Course: Patient is a 45-year-old female with a history of IV drug use who was transferre d from an outside hospital for osteomyelitis of the spine. Patient initially pr esented with 6-week history of progressive worsening of the back pain. On prese ntation at the outside hospital, patient was afebrile but tachycardic in 120s. Her blood pressure was 190/68 mmHg and patient was satting well on room air. In itial labs showed WBC count of 13.9, UDS was negative. MRI of the lumbar spine was obtained which showed osteomyelitis of L5-S1. Patient was started on vancom ycin and cefepime before transferring to [facility]. Patient was continue d on IV antibiotics upon transfer. Patient had an elevated ESR of 90 and CRP of 24. Neurosurgery and infectious diseases were consulted. Neurosurgery evaluat ed the patient and no surgical intervention was recommended. Interventional rad iology was consulted for disc aspiration and sampling. Cultures from disc aspir ation were negative. However, patient was already on antibiotics at the time of discoloration. Infectious diseases recommended continuing vancomycin and cefep ronny. A transthoracic echo was obtained which was negative for any infective end ocarditis. Given the patient's history with IV drug use, it is not ideal to sen d patient home with the PICC line. Patient was transitioned to dalbavancin per ID recommendations. She received her 1 dose out of 3 while inpatient. Patient is discharged home in a stable condition. She was discharged on levofloxacin an d outpatient infusion for the remaining 2 doses of dalbavancin was obtained. Physical Exam on Discharge Vitals: 06/30/21 0723 06/30/21 1133 BP: 116/71 102/80 Pulse: 101 100 Resp: 16 18 Temp: 36.7 C (98.1 F) 37.3 C (99.2 F) SpO2: 94% 95% Weight: General: In no acute distress Eyes: EOMI, normal sclera Mouth: moist mucosa Heart: regular rate and rhythm Lungs: unlabored breathing Abdomen: non-tender, non-distended Skin: warm, dry, intact MSK: no significant deformity Neuro: no focal deficits Psych: appropriate mood and affect Discharge Condition: stable Disposition: Home Diet: regular diet Activity: activity as tolerated Medications on Discharge Medication List START taking these medications levoFLOXacin 750 MG tablet Commonly known as: Levaquin 750 mg, Oral, Daily Where to Get Your Medications These medications were sent to [facility] [address] [facility] [id number] Hours: Sunday-Sunday 9:00am-5:30pm levoFLOXacin 750 MG tablet Ashley Lynne MD Internal Medicine, PGY-III cc: Placido Donaldson APRN I saw and examined the patient with Dr Ashley Lynne MD. I agree with Discharge Summary above. I have edited as appropriate to reflect my findings. Discharged on Dalbavancin x 3 weeks and Levaquin for 6 weeks Electronically signed: Spencer Squires M.D. documented in this encounter Discharge Instructions * Discharge Instr - Other Orders* Leon Sharma RN - 06/30/2021 11:15 AM CDT Outpatient infusion is located on the same end of the hospital as the [facility]. Please check in with the screeners and you will be directed to the green elevators to go up to the outpatient infusion center. Allow about an hour from time of check in to the end of your infusion. documented in this encounter Medications at Time of Discharge Start Date End Date Medication Sig Dispensed Refills 06/30/2021 08/11/2021 levoFLOXacin (LEVAQUIN) Take 1 tablet 42 tablet 0 750 MG tablet (750 mg total) by mouth daily. documented as of this encounter Progress Notes * Zoe Martinez MD - 06/30/2021 1:36 PM CDT [facility] INFECTIOUS DISEASE PROGRESS NOTE REASON FOR SEEING PATIENT: Vertebral osteomyelitis SUBJECTIVE: No acute events OBJECTIVE: Afebrile MEDICATIONS: Scheduled Medications: cefepime 2 g Intravenous Q8H MOON enoxaparin 40 mg Subcutaneous Q24H MOON lactobacillus-inulin 1 capsule Oral BID melatonin 6 mg Oral Nightly orphenadrine 60 mg Intravenous Q12H MOON Continuous Infusions: PRN Medications: acetaminophen OR acetaminophen, ALPRAZolam, aluminum-magnesium hydroxide-sim ethicone, benzocaine-menthoL, bisacodyL, docusate sodium, fentaNYL, guaiFENesin, magnesium sulfate, miconazole nitrate, nitroglycerin, ondansetron, oxyCODONE, p olyethylene glycol, potassium chloride OR potassium bicarb-citric acid OR* * potassium chloride in water, prochlorperazine OR prochlorperazine OR p rochlorperazine, sodium chloride, sodium chloride 0.9% LABORATORY RESULTS: Last CBC: Most Recent Result within the last 7 days Lab Units 06/30/21 0603 06/28/21 0719 06/25/21 0836 WBC TH/uL 8.46 8.33 8.76 HEMOGLOBIN g/dL 11.2* 10.2* 9.1* HEMATOCRIT % 34* 31* 27* PLATELET COUNT TH/uL 475* 444* 408* Last BMP: Most Recent Result within the last 7 days Lab Units 06/30/21 0603 06/28/21 0719 06/25/21 0836 SODIUM MEQ/L 133 139 143 POTASSIUM MEQ/L 4.5 4.4 3.8 CHLORIDE MEQ/L 98 103 109 CARBON DIOXIDE MEQ/L 23 25 23 BLOOD UREA NITROGEN mg/dL 21 13 15 CREATININE mg/dL 0.5 0.5 0.5 CALCIUM mg/dL 10.4 9.9 8.9 No results found for: PROCALCIT CULTURES: Results for orders placed or performed during the hospital encounter of 06/25/21 Culture, Blood Collection Time: 06/25/21 3:02 AM Specimen: Blood - Culture Result No growth at 2 days Narrative RIGHT AC 10ML Culture, Blood Collection Time: 06/25/21 3:13 AM Specimen: Blood - Culture Result No growth at 2 days Narrative LEFT AC 10ML MRSA Nasal PCR Collection Time: 06/25/21 3:20 AM Specimen: NASOPHARYNGEAL SWAB - MRSA PCR Not Detected Not Detected Source NPSWAB Culture, Anaerobe Collection Time: 06/25/21 6:02 PM Specimen: Disc - Culture Result No anaerobes isolated at 5 days Culture, AFB Collection Time: 06/25/21 6:02 PM Specimen: Disc - AFB Stain No Acid Fast Bacilli seen on fluorescent stain. Culture result Mycobacteriology Acid-Fast Culture In Progress Culture, Fungus Collection Time: 06/25/21 6:02 PM Specimen: DISC ASPIRATE - Fungus Culture Fungal culture in progress Culture, Wound with Gram Stain (Aerobic) Collection Time: 06/25/21 6:02 PM Specimen: DISC ASPIRATE - Gram Stain Rare Polymorphonuclear leukocytes Gram Stain No squamous epithelial cells seen Gram Stain No organisms seen Culture Result No growth at 3 days CULTURE SUMMARY: 06/25 disc aspirate in process SEROLOGIES: - IMAGING - PHYSICAL EXAMINATION: Vitals: 06/30/21 1133 BP: 102/80 Pulse: 100 Resp: 18 Temp: 37.3 C (99.2 F) TempSrc: Oral SpO2: 95% Weight: Temp (24hrs), Av.9 C (98.4 F), Min:36.6 C (97.9 F), Max:37.3 C (99 .2 F) - PROBLEM LIST: Principal Problem: Osteomyelitis of lumbar spine (HCC) Active Problems: IVDU (intravenous drug user) LOS: 5 days IMPRESSION: 1. L5-S1 osteomyelitis with question of an epidural abscess 2. History of IV drug use RECOMMENDATIONS Patient will discharge today on Dalvance She received one dose inpatient and will receive two more outpatient 1500 mg IV x 2 given 8 days apart and oral lev aquin 750 mg PO daily for 5 more weeks, that regimen will cover the patient for the 6-8 week duration of osteomyelitis treatment If patient can get follow up MRI then child protective services social worker help set up outpatient fo llow up for her The patient will not be able to follow up with the [facility] clinic currently but can call clinic with questions or concerns about the antibiotics or if can have follow up at end of treatment in 5-6 weeks Electronically signed by Zoe Martinez MD 06/30/2021 1:36 PM * May Clarke - 06/30/2021 7:32 AM CDT [facility] INFECTIOUS DISEASE PROGRESS NOTE REASON FOR SEEING PATIENT: Vertebral osteomyelitis SUBJECTIVE: Patient reports she is feeling well other than some back pain. Denies fevers, ch ills, abdominal pain, dysuria or frequency. Reports she might be discharged to y OBJECTIVE: Afebrile overnight WBC wnl Cr wnl, stable MEDICATIONS: Scheduled Medications: cefepime 2 g Intravenous Q8H MOON dalbavancin (DALVANCE) IVPB 1,500 mg Intravenous Once enoxaparin 40 mg Subcutaneous Q24H MOON lactobacillus-inulin 1 capsule Oral BID melatonin 6 mg Oral Nightly orphenadrine 60 mg Intravenous Q12H MOON Continuous Infusions: PRN Medications: acetaminophen OR acetaminophen, ALPRAZolam, aluminum-magnesium hydroxide-sim ethicone, benzocaine-menthoL, bisacodyL, docusate sodium, fentaNYL, guaiFENesin, magnesium sulfate, miconazole nitrate, nitroglycerin, ondansetron, oxyCODONE, p olyethylene glycol, potassium chloride OR potassium bicarb-citric acid OR* * potassium chloride in water, prochlorperazine OR prochlorperazine OR p rochlorperazine, sodium chloride, sodium chloride 0.9% LABORATORY RESULTS: Last CBC: Most Recent Result within the last 7 days Lab Units 06/30/21 0603 06/28/21 0719 06/25/21 0836 WBC TH/uL 8.46 8.33 8.76 HEMOGLOBIN g/dL 11.2* 10.2* 9.1* HEMATOCRIT % 34* 31* 27* PLATELET COUNT TH/uL 475* 444* 408* Last BMP: Most Recent Result within the last 7 days Lab Units 06/30/21 0603 06/28/21 0719 06/25/21 0836 SODIUM MEQ/L 133 139 143 POTASSIUM MEQ/L 4.5 4.4 3.8 CHLORIDE MEQ/L 98 103 109 CARBON DIOXIDE MEQ/L 23 25 23 BLOOD UREA NITROGEN mg/dL 21 13 15 CREATININE mg/dL 0.5 0.5 0.5 CALCIUM mg/dL 10.4 9.9 8.9 No results found for: PROCALCIT CULTURES: Results for orders placed or performed during the hospital encounter of 06/25/21 Culture, Blood Collection Time: 06/25/21 3:02 AM Specimen: Blood - Culture Result No growth at 2 days Narrative RIGHT AC 10ML Culture, Blood Collection Time: 06/25/21 3:13 AM Specimen: Blood - Culture Result No growth at 2 days Narrative LEFT AC 10ML MRSA Nasal PCR Collection Time: 06/25/21 3:20 AM Specimen: NASOPHARYNGEAL SWAB - MRSA PCR Not Detected Not Detected Source NPSWAB Culture, Anaerobe Collection Time: 06/25/21 6:02 PM Specimen: Disc - Culture Result No anaerobes isolated at 4 days Culture, AFB Collection Time: 06/25/21 6:02 PM Specimen: Disc - AFB Stain No Acid Fast Bacilli seen on fluorescent stain. Culture result Mycobacteriology Acid-Fast Culture In Progress Culture, Fungus Collection Time: 06/25/21 6:02 PM Specimen: DISC ASPIRATE - Fungus Culture Fungal culture in progress Culture, Wound with Gram Stain (Aerobic) Collection Time: 06/25/21 6:02 PM Specimen: DISC ASPIRATE - Gram Stain Rare Polymorphonuclear leukocytes Gram Stain No squamous epithelial cells seen Gram Stain No organisms seen Culture Result No growth at 3 days CULTURE SUMMARY: 06/25 Blood cultures x 2: NGTD 2 days 06/25 MRSA nasal PCR: Not detected 06/25 Wound culture (Disc aspirate): no growth at 2 days, updated 06/28 06/25 Fungus culture (Disc aspirate): culture in progress 06/25 AFB (Disc): no AFB seen on fluorescent stain, culture in progress 06/25 Anaerobes (Disc): In progress SEROLOGIES: COVID PCR negative HIV negative Hepatitis negative IMAGING 06/27 Echo TTE 1. Normal LV and RV size and systolic function. LVEF estimated at 60%. 2. Normal diastolic function. 3. No significant valvular abnormalities. 4. No obvious valvular vegetations. If high clinical suspicion for endoc arditis, consider MACIE. 06/26 MRI lumbar spine w wo contrast Acute discitis osteomyelitis at L5-S1 with prominent enhancing epidural phlegmon resulting in left lateral recess effacement and mild spinal canal narrowing at L5-S1. No epidural abscess. Peripherally enhancing fluid in the L5-S1 disc extends into the prevertebral soft tissues with a tiny prevertebral abscess at L5-S1. PHYSICAL EXAMINATION: Vitals: 06/30/21 0723 BP: 116/71 Pulse: 101 Resp: 16 Temp: 36.7 C (98.1 F) TempSrc: Oral SpO2: 94% Weight: Temp (24hrs), Av.8 C (98.3 F), Min:36.6 C (97.9 F), Max:37.1 C (98 .8 F) PROBLEM LIST: Principal Problem: Osteomyelitis of lumbar spine (HCC) Active Problems: IVDU (intravenous drug user) LOS: 5 days IMPRESSION: 1. L5-[id number], no epidural abscess 1. S/P IR guided aspiration, no culture growth to date 2. History of IV drug use 1. TTE is negative RECOMMENDATIONS Student note for learning, pending review and addendum by Dr. Martinez Continue empiric vanco and cefepime, 6 weeks IV antibiotics (06/25 start) Trend cultures No PICC line for now Electronically signed by May Clarke MD 06/30/2021 7:33 AM Associated attestation - Zoe Martinez MD - 06/30/2021 1:43 PM CDT This is a medical student note. It is for student learning purposes only. No rec ommendations should be taken from this note. It has been reviewed and acknowledg ed by me. Electronically signed by Zoe Martinez MD 06/30/2021 1:43 PM * Zoe Martinez MD - 06/29/2021 1:55 PM CDT [facility] INFECTIOUS DISEASE PROGRESS NOTE REASON FOR SEEING PATIENT: Vertebral osteomyelitis SUBJECTIVE: No acute events OBJECTIVE: Afebrile MEDICATIONS: Scheduled Medications: cefepime 2 g Intravenous Q8H MOON enoxaparin 40 mg Subcutaneous Q24H MOON lactobacillus-inulin 1 capsule Oral BID melatonin 6 mg Oral Nightly orphenadrine 60 mg Intravenous Q12H MOON vancomycin 1,250 mg Intravenous Q12H Continuous Infusions: PRN Medications: acetaminophen OR acetaminophen, ALPRAZolam, aluminum-magnesium hydroxide-sim ethicone, benzocaine-menthoL, bisacodyL, docusate sodium, fentaNYL, guaiFENesin, magnesium sulfate, miconazole nitrate, nitroglycerin, ondansetron, oxyCODONE, p olyethylene glycol, potassium chloride OR potassium bicarb-citric acid OR* * potassium chloride in water, prochlorperazine OR prochlorperazine OR p rochlorperazine, sodium chloride, sodium chloride 0.9% LABORATORY RESULTS: Last CBC: Most Recent Result within the last 7 days Lab Units 06/28/21 0719 06/25/21 0836 WBC TH/uL 8.33 8.76 HEMOGLOBIN g/dL 10.2* 9.1* HEMATOCRIT % 31* 27* PLATELET COUNT TH/uL 444* 408* Last BMP: Most Recent Result within the last 7 days Lab Units 06/28/21 0719 06/25/21 0836 SODIUM MEQ/L 139 143 POTASSIUM MEQ/L 4.4 3.8 CHLORIDE MEQ/L 103 109 CARBON DIOXIDE MEQ/L 25 23 BLOOD UREA NITROGEN mg/dL 13 15 CREATININE mg/dL 0.5 0.5 CALCIUM mg/dL 9.9 8.9 No results found for: PROCALCIT CULTURES: Results for orders placed or performed during the hospital encounter of 06/25/21 Culture, Blood Collection Time: 06/25/21 3:02 AM Specimen: Blood - Culture Result No growth at 2 days Narrative RIGHT AC 10ML Culture, Blood Collection Time: 06/25/21 3:13 AM Specimen: Blood - Culture Result No growth at 2 days Narrative LEFT AC 10ML MRSA Nasal PCR Collection Time: 06/25/21 3:20 AM Specimen: NASOPHARYNGEAL SWAB - MRSA PCR Not Detected Not Detected Source NPSWAB Culture, Anaerobe Collection Time: 06/25/21 6:02 PM Specimen: Disc - Culture Result No anaerobes isolated at 4 days Culture, AFB Collection Time: 06/25/21 6:02 PM Specimen: Disc - AFB Stain No Acid Fast Bacilli seen on fluorescent stain. Culture result Mycobacteriology Acid-Fast Culture In Progress Culture, Fungus Collection Time: 06/25/21 6:02 PM Specimen: DISC ASPIRATE - Fungus Culture Fungal culture in progress Culture, Wound with Gram Stain (Aerobic) Collection Time: 06/25/21 6:02 PM Specimen: DISC ASPIRATE - Gram Stain Rare Polymorphonuclear leukocytes Gram Stain No squamous epithelial cells seen Gram Stain No organisms seen Culture Result No growth at 3 days CULTURE SUMMARY: 06/25 disc aspirate in process SEROLOGIES: - IMAGING - PHYSICAL EXAMINATION: Vitals: 06/29/21 1056 BP: 103/67 Pulse: 89 Resp: 20 Temp: 37.1 C (98.8 F) TempSrc: Oral SpO2: 94% Weight: Temp (24hrs), Av.9 C (98.5 F), Min:36.8 C (98.2 F), Max:37.1 C (98 .8 F) - PROBLEM LIST: Principal Problem: Osteomyelitis of lumbar spine (HCC) Active Problems: IVDU (intravenous drug user) LOS: 4 days IMPRESSION: 1. L5-S1 osteomyelitis with question of an epidural abscess 2. History of IV drug use RECOMMENDATIONS Continue empiric vanco and cefepime Follow up cultures No PICC line for now unless going to community hospital or facility Electronically signed by Zoe Martinez MD 06/29/2021 1:55 PM * Spencer Squires MD - 06/29/2021 12:33 PM CDT [facility] Patient Name: Jill Marquez Account No: [id number] Date of : 1975 Date of Admission: 06/25/2021 2:31 AM Subjective Patient in well this morning. No acute events overnight. Patient's back pain i s improving. She is able to ambulate. ROS 14 point review of system negative except above. Objective Vital Signs: Temp: 37.1 C (98.8 F) Pulse: 89 Resp: 20 BP: 103/67 SpO2: 94 % Weight: 78.9 kg (174 lb) I/O last 24 Hours: In: - Out: 1200 [Urine:1200] Physical Exam Gen: Calm, cooperative, and in no distress HEENT: Head: Normal, normocephalic, atraumatic. Eye: Normal external eye, conjun ctiva, eye lids, and cornea. CV: Regular rate and rhythm, No murmurs, gallops, or rubs Resp: Clear to auscultation, Breath sounds are equal and symmetric Abd: Soft, Non-tender, Non-distended, Normal bowel sounds Ext: No clubbing, cyanosis, or edema Skin: Warm, dry, skin intact with no obvious rashes or significant lesions Neuro: Alert, Oriented to person, place, date, and situation, No focal neurolog ic deficits noted Assessment/Plan Problems addressed with today's visit include: * Osteomyelitis of lumbar spine (HCC) -Likely secondary to drug abuse. -CRP presentation is 22, ER 90. -Blood cultures negative to date. -MRI of lumbar spine showed discitis and osteomyelitis of L5-S1. No epidural ab scess. -Status post IR guided aspiration. Cultures negative to date. -Continue vancomycin and cefepime. -Transthoracic echo normal. IVDU (intravenous drug user) -UDS at outside hospital negative. -HIV and hepatitis testing negative. See my orders for additional details regarding this patients treatment plan. Expected Discharge Date The patient's predicted discharge date is 06/30/2021, but this doesn't guarantee a discharge on this date. Anticipated Discharge Destination The patient's anticipated discharge destination is [facility] (with deniz kaur). Room: [facility] [id number] Diet: Diet-Regular VTE Prevention: Appropriate VTE chemical treatment ordered. Appropriate VTE mec hanical treatment ordered. Code Status: Full Code Centeno Catheter: N/A Scheduled Meds: cefepime 2 g Intravenous Q8H MOON enoxaparin 40 mg Subcutaneous Q24H MOON lactobacillus-inulin 1 capsule Oral BID melatonin 6 mg Oral Nightly orphenadrine 60 mg Intravenous Q12H MOON vancomycin 1,250 mg Intravenous Q12H Continuous Infusions: PRN Meds: acetaminophen OR acetaminophen, ALPRAZolam, aluminum-magnesium hydroxide-sim ethicone, benzocaine-menthoL, bisacodyL, docusate sodium, fentaNYL, guaiFENesin, magnesium sulfate, miconazole nitrate, nitroglycerin, ondansetron, oxyCODONE, p olyethylene glycol, potassium chloride OR potassium bicarb-citric acid OR* * potassium chloride in water, prochlorperazine OR prochlorperazine OR p rochlorperazine, sodium chloride, sodium chloride 0.9% Ashley Lynne MD Internal Medicine, PGY-III . I saw and examined the patient with Dr Ashley Lynne MD. I agree with history, exam, assessment and plan as documented in his note. I have edited as appropria te to reflect my findings. Discussed with ID. Plan to discharge on Dalbavancin--first dose tomorrow plus PO Levaquin 750 mg daily. Discharge tomorrow. Discussed plan with patient and Pharmacy Electronically signed: Spencer Squires M.D. * Deana Teran - 06/29/2021 11:00 AM CDT [facility] Hospitalist Progress Note Patient Name: Jill Marquez Age: 45 y.o. Sex: female Admit Date: 06/25/2021 Length of Stay: 4 Days Chief Complaint: vertebral osteomyelitis Summary Statement: 45 year old female with a past history of IV methamphetamine use ( last use about 2 months ago ) presented to outside hospital with increased back pain. She described intermittent spasms, radiation of pain down her LLE. No loss of bowel and no urinary retention. She then had an outpatient MRI comp leted that was concerning for spinal osteomyelitis. No lower extremity weakness , but trouble walking secondary to pain. NS, ID and IR consulted. S/p aspiration 06/25. Started empirically on vancomyci n and cefepime. No growth to date on culture. Assessment/Plan: Osteomyelitis of lumbar spine (HCC) -Likely secondary to IV drug use -CRP presentation is 22, ER 90. -Blood cultures and disc aspiration - negative to date -MRI of lumbar spine showed discitis and osteomyelitisof L5-S1.No epidural abscess. -Continue vancomycin and cefepimeper ID, 6 weeks IV abx - day 5 - Neurosurgery signed off - PT consult - Per ID: can take dalbavancin IV (1.5g first dose, then 1g for second and third doses) q8 days and levofloxacin 750mg PO daily when discharged IVDU (intravenous drug user) -History of IV methamphetamine use, stopped 8 weeks ago when she from . -UDS at outside hospital negative -HIV and hepatitis testing negative -TTE showed no evidence of valvular vegetations Anemia of unknown etiology Unclear cause, no signs and symptoms of bleeding: -folate 4.3, vitamin B12 281 DVT Prophylaxis: SCDs Code Status: Full Code Disposition: remain inpatient No active isolations Subjective: NAEON. She reports that her pain is unchanged. Has been able to ambulate to the bathroom. Good appetite, denies N/V. Denies confusion, fevers/chills. Objective: Physical Exam: weight is 78.9 kg (174 lb). Her oral temperature is 37.1 C (98.8 F). Her bl ood pressure is 103/67 and her pulse is 89. Her respiration is 20 and oxygen sat uration is 94%. Alert and oriented x person, place, year Cardiovascular: Regular rate, regular rhythm, no murmur, no S3 Lungs: no wheezes, no crackles, no rhonchi Abdomen: Soft, non tender, bowel sounds normal active Extremities: No lower extremity edema, radial pulses 2+ bilateral, posterior tib ial pulses 2+ bilateral, able to move toes bilaterally, normal sensation in lowe r extremities Centeno Catheter: No Laboratory Data: Most Recent Result within the last 7 days Lab Units 06/28/21 0719 SODIUM MEQ/L 139 POTASSIUM MEQ/L 4.4 CHLORIDE MEQ/L 103 CARBON DIOXIDE MEQ/L 25 BLOOD UREA NITROGEN mg/dL 13 CREATININE mg/dL 0.5 GLUCOSE mg/dL 83 CALCIUM mg/dL 9.9 Most Recent Result within the last 7 days Lab Units 06/28/21 0719 WBC TH/uL 8.33 HEMOGLOBIN g/dL 10.2* HEMATOCRIT % 31* PLATELET COUNT TH/uL 444* Scheduled medications: cefepime 2 g Intravenous Q8H MOON enoxaparin 40 mg Subcutaneous Q24H MOON lactobacillus-inulin 1 capsule Oral BID melatonin 6 mg Oral Nightly orphenadrine 60 mg Intravenous Q12H MOON vancomycin 1,250 mg Intravenous Q12H Intake/Output Summary (Last 24 hours) at 06/29/2021 1100 Last data filed at 06/29/2021 0343 Gross per 24 hour Intake Output 1650 ml Net -1650 ml Seen with Deana Teran MSVI Associated attestation - Spencer Squires MD - 06/30/2021 12:04 PM CDT Attending Physician Attestation: This student note was written for presentation during teaching rounds today. The content, without my revision, is submitted as a requirement of the clinical amanda rkship, but not intended to be part of the official medical record. Spencer Squires M.D. * May Clarke T - 06/29/2021 7:22 AM CDT [facility] INFECTIOUS DISEASE PROGRESS NOTE REASON FOR SEEING PATIENT: Vertebral osteomyelitis SUBJECTIVE: Patient reports some leg pain overnight, is otherwise doing well. Denies fevers, chills, abdominal pain, dysuria, frequency. OBJECTIVE: Afebrile overnight WBC wnl Cr wnl, stable MEDICATIONS: Scheduled Medications: cefepime 2 g Intravenous Q8H MOON enoxaparin 40 mg Subcutaneous Q24H MOON lactobacillus-inulin 1 capsule Oral BID melatonin 6 mg Oral Nightly orphenadrine 60 mg Intravenous Q12H MOON vancomycin 1,250 mg Intravenous Q12H Continuous Infusions: PRN Medications: acetaminophen OR acetaminophen, ALPRAZolam, aluminum-magnesium hydroxide-sim ethicone, benzocaine-menthoL, bisacodyL, docusate sodium, fentaNYL, guaiFENesin, magnesium sulfate, miconazole nitrate, nitroglycerin, ondansetron, oxyCODONE, p olyethylene glycol, potassium chloride OR potassium bicarb-citric acid OR* * potassium chloride in water, prochlorperazine OR prochlorperazine OR p rochlorperazine, sodium chloride, sodium chloride 0.9% LABORATORY RESULTS: Last CBC: Most Recent Result within the last 7 days Lab Units 06/28/21 0719 06/25/21 0836 WBC TH/uL 8.33 8.76 HEMOGLOBIN g/dL 10.2* 9.1* HEMATOCRIT % 31* 27* PLATELET COUNT TH/uL 444* 408* Last BMP: Most Recent Result within the last 7 days Lab Units 06/28/21 0719 06/25/21 0836 SODIUM MEQ/L 139 143 POTASSIUM MEQ/L 4.4 3.8 CHLORIDE MEQ/L 103 109 CARBON DIOXIDE MEQ/L 25 23 BLOOD UREA NITROGEN mg/dL 13 15 CREATININE mg/dL 0.5 0.5 CALCIUM mg/dL 9.9 8.9 No results found for: PROCALCIT CULTURES: Results for orders placed or performed during the hospital encounter of 06/25/21 Culture, Blood Collection Time: 06/25/21 3:02 AM Specimen: Blood - Culture Result No growth at 2 days Narrative RIGHT AC 10ML Culture, Blood Collection Time: 06/25/21 3:13 AM Specimen: Blood - Culture Result No growth at 2 days Narrative LEFT AC 10ML MRSA Nasal PCR Collection Time: 06/25/21 3:20 AM Specimen: NASOPHARYNGEAL SWAB - MRSA PCR Not Detected Not Detected Source NPSWAB Culture, Anaerobe Collection Time: 06/25/21 6:02 PM Specimen: Disc - Culture Result Anaerobe Culture In Progress Culture, AFB Collection Time: 06/25/21 6:02 PM Specimen: Disc - AFB Stain No Acid Fast Bacilli seen on fluorescent stain. Culture result Mycobacteriology Acid-Fast Culture In Progress Culture, Fungus Collection Time: 06/25/21 6:02 PM Specimen: DISC ASPIRATE - Fungus Culture Fungal culture in progress Culture, Wound with Gram Stain (Aerobic) Collection Time: 06/25/21 6:02 PM Specimen: DISC ASPIRATE - Gram Stain Rare Polymorphonuclear leukocytes Gram Stain No squamous epithelial cells seen Gram Stain No organisms seen Culture Result No growth at 2 days CULTURE SUMMARY: 06/25 Blood cultures x 2: NGTD 2 days 06/25 MRSA nasal PCR: Not detected 06/25 Wound culture (Disc aspirate): no growth at 2 days, updated 06/28 06/25 Fungus culture (Disc aspirate): culture in progress 06/25 AFB (Disc): no AFB seen on fluorescent stain, culture in progress 06/25 Anaerobes (Disc): In progress SEROLOGIES: COVID PCR negative HIV negative Hepatitis negative IMAGING 06/27 Echo TTE 1. Normal LV and RV size and systolic function. LVEF estimated at 60%. 2. Normal diastolic function. 3. No significant valvular abnormalities. 4. No obvious valvular vegetations. If high clinical suspicion for endoc arditis, consider MACIE. 06/26 MRI lumbar spine w wo contrast Acute discitis osteomyelitis at L5-S1 with prominent enhancing epidural phlegmon resulting in left lateral recess effacement and mild spinal canal narrowing at L5-S1. No epidural abscess. Peripherally enhancing fluid in the L5-S1 disc extends into the prevertebral soft tissues with a tiny prevertebral abscess at L5-S1. PHYSICAL EXAMINATION: Vitals: 06/29/21 0528 BP: Pulse: Resp: Temp: TempSrc: SpO2: Weight: 78.9 kg (174 lb) Temp (24hrs), Av.8 C (98.3 F), Min:36.5 C (97.7 F), Max:37.1 C (98 .7 F) PROBLEM LIST: Principal Problem: Osteomyelitis of lumbar spine (HCC) Active Problems: IVDU (intravenous drug user) Anemia of unknown etiology LOS: 4 days IMPRESSION: 1. [id number], no epidural abscess 1. S/P IR guided aspiration 2. History of IV drug use 1. TTE is negative RECOMMENDATIONS Student note for learning, pending review and addendum by Dr. Martinez Continue empiric vanco and cefepime, 6 weeks IV antibiotics (06/25 start) Trend cultures No PICC line for now Electronically signed by May Clarke MD 06/29/2021 7:22 AM Associated attestation - Zoe Martinez MD - 06/29/2021 1:55 PM CDT This is a medical student note. It is for student learning purposes only. No rec ommendations should be taken from this note. It has been reviewed and acknowledg ed by me. Electronically signed by Zoe Martinez MD 06/29/2021 1:55 PM * Zoe Martinez MD - 06/28/2021 1:27 PM CDT [facility] INFECTIOUS DISEASE PROGRESS NOTE REASON FOR SEEING PATIENT: Vertebral osteomyelitis SUBJECTIVE: No acute events OBJECTIVE: Afebrile MEDICATIONS: Scheduled Medications: cefepime 2 g Intravenous Q8H MOON enoxaparin 40 mg Subcutaneous Q24H MOON lactobacillus-inulin 1 capsule Oral BID melatonin 6 mg Oral Nightly orphenadrine 60 mg Intravenous Q12H MOON vancomycin 1,250 mg Intravenous Q12H Continuous Infusions: PRN Medications: acetaminophen OR acetaminophen, ALPRAZolam, aluminum-magnesium hydroxide-sim ethicone, benzocaine-menthoL, bisacodyL, docusate sodium, fentaNYL, guaiFENesin, magnesium sulfate, miconazole nitrate, nitroglycerin, ondansetron, oxyCODONE, p olyethylene glycol, potassium chloride OR potassium bicarb-citric acid OR* * potassium chloride in water, prochlorperazine OR prochlorperazine OR p rochlorperazine, sodium chloride, sodium chloride 0.9% LABORATORY RESULTS: Last CBC: Most Recent Result within the last 7 days Lab Units 06/28/21 0719 06/25/21 0836 WBC TH/uL 8.33 8.76 HEMOGLOBIN g/dL 10.2* 9.1* HEMATOCRIT % 31* 27* PLATELET COUNT TH/uL 444* 408* Last BMP: Most Recent Result within the last 7 days Lab Units 06/28/21 0719 06/25/21 0836 SODIUM MEQ/L 139 143 POTASSIUM MEQ/L 4.4 3.8 CHLORIDE MEQ/L 103 109 CARBON DIOXIDE MEQ/L 25 23 BLOOD UREA NITROGEN mg/dL 13 15 CREATININE mg/dL 0.5 0.5 CALCIUM mg/dL 9.9 8.9 No results found for: PROCALCIT CULTURES: Results for orders placed or performed during the hospital encounter of 06/25/21 Culture, Blood Collection Time: 06/25/21 3:02 AM Specimen: Blood - Culture Result No growth at 2 days Narrative RIGHT AC 10ML Culture, Blood Collection Time: 06/25/21 3:13 AM Specimen: Blood - Culture Result No growth at 2 days Narrative LEFT AC 10ML MRSA Nasal PCR Collection Time: 06/25/21 3:20 AM Specimen: NASOPHARYNGEAL SWAB - MRSA PCR Not Detected Not Detected Source NPSWAB Culture, Anaerobe Collection Time: 06/25/21 6:02 PM Specimen: Disc - Culture Result Anaerobe Culture In Progress Culture, AFB Collection Time: 06/25/21 6:02 PM Specimen: Disc - AFB Stain No Acid Fast Bacilli seen on fluorescent stain. Culture result Mycobacteriology Acid-Fast Culture In Progress Culture, Fungus Collection Time: 06/25/21 6:02 PM Specimen: DISC ASPIRATE - Fungus Culture Fungal culture in progress Culture, Wound with Gram Stain (Aerobic) Collection Time: 06/25/21 6:02 PM Specimen: DISC ASPIRATE - Gram Stain Rare Polymorphonuclear leukocytes Gram Stain No squamous epithelial cells seen Gram Stain No organisms seen Culture Result No growth at 2 days CULTURE SUMMARY: 06/25 disc aspirate in process SEROLOGIES: - IMAGING - PHYSICAL EXAMINATION: Vitals: 06/28/21 1147 BP: 109/50 Pulse: 85 Resp: 18 Temp: 36.9 C (98.4 F) TempSrc: Oral SpO2: 95% Weight: Temp (24hrs), Av.8 C (98.3 F), Min:36.5 C (97.7 F), Max:37.1 C (98 .7 F) - PROBLEM LIST: Principal Problem: Osteomyelitis of lumbar spine (HCC) Active Problems: IVDU (intravenous drug user) Anemia of unknown etiology LOS: 3 days IMPRESSION: 1. L5-S1 osteomyelitis with question of an epidural abscess 2. History of IV drug use RECOMMENDATIONS Continue empiric vanco and cefepime Follow up cultures No PICC line for now Electronically signed by Zoe Martinez MD 06/28/2021 1:27 PM * Devante Swartz, - 06/28/2021 12:36 PM CDT [facility] VET[employer]IN[employer] Hospitalist Progress Note Patient Name: Jill Marquez Age: 45 y.o. Sex: female Admit Date: 06/25/2021 Length of Stay: 3 Days Chief Complaint: back pain, osteomyelitis Summary Statement: 45 year old female with a past history of IV methamphetamine use ( last use about 2 months ago ) presented to outside hospital with increased back pain. She described intermittent spasms, radiation of pain down her LLE. No loss of bowel and no urinary retention. She then had an outpatient MRI comp leted that was concerning for spinal osteomyelitis. No lower extremity weakness , but trouble walking secondary to pain. NS, ID and IR consulted. S/p aspiration 06/25. Started empirically on vancomyci n and cefepime. No growth to date on culture. Assessment/Plan: * Osteomyelitis of lumbar spine (HCC) Likely secondary to IV drug abuse: -CRP presentation is 22, ER 90. -Blood cultures negative to date. -MRI of lumbar spine showed discitis and osteomyelitis of L5-S1. No epidural ab scess. -Status post IR guided aspiration. Cultures pending. -Continue vancomycin and cefepime. Day 4 ID following -Transthoracic echo normal. Hold on MACIE with negative blood culture IVDU (intravenous drug user) History of IV methamphetamine use, stopped 8 weeks ago when she from [facility]. -UDS at outside hospital negative -HIV and hepatitis testing negative complicates half-way antibiotics Anemia of unknown etiology Unclear cause, no signs and symptoms of bleeding: -check vitamin levels DVT Prophylaxis: enoxaparin Code Status: Full Code Disposition: work with ID / social work on post dc antibiotic options No active isolations Subjective: Continued but somewhat improved back pain, no fevers or chills, no nausea and vo miting, no headache, no shortness of breath Objective: Physical Exam: weight is 78.9 kg (174 lb). Her oral temperature is 36.9 C (98.4 F). Her bl ood pressure is 109/50 and her pulse is 85. Her respiration is 18 and oxygen sat uration is 95%. Alert and oriented x person, place, year Cardiovascular: Regular rate, regular rhythm, no murmur, no S3 Lungs: no wheezes, no crackles, no rhonchi Abdomen: Soft, non tender, bowel sounds normal active Extremities: No lower extremity edema, radial pulses 2+ bilateral, posterior tib ial pulses 2+ bilateral Centeno Catheter: No Laboratory Data: Most Recent Result within the last 7 days Lab Units 06/28/21 0719 SODIUM MEQ/L 139 POTASSIUM MEQ/L 4.4 CHLORIDE MEQ/L 103 CARBON DIOXIDE MEQ/L 25 BLOOD UREA NITROGEN mg/dL 13 CREATININE mg/dL 0.5 GLUCOSE mg/dL 83 CALCIUM mg/dL 9.9 Most Recent Result within the last 7 days Lab Units 06/28/21 0719 WBC TH/uL 8.33 HEMOGLOBIN g/dL 10.2* HEMATOCRIT % 31* PLATELET COUNT TH/uL 444* Scheduled medications: cefepime 2 g Intravenous Q8H MOON lactobacillus-inulin 1 capsule Oral BID melatonin 6 mg Oral Nightly orphenadrine 60 mg Intravenous Q12H MOON vancomycin 1,250 mg Intravenous Q12H Intake/Output Summary (Last 24 hours) at 06/28/2021 1236 Last data filed at 06/28/2021 1135 Gross per 24 hour Intake 840 ml Output 1350 ml Net -510 ml Devante Swartz DO [facility] Please page through [employer] Messaging using template format. Electronically signed by Devante Swartz 06/28/2021 12:36 PM * TeranDeana - 06/28/2021 9:16 AM CDT [facility] VETERIN[employer]OR Hospitalist Progress Note Patient Name: Jill Marquez Age: 45 y.o. Sex: female Admit Date: 06/25/2021 Length of Stay: 3 Days Chief Complaint: vertebral osteomyelitis Summary Statement: 45 year old female with a past history of IV methamphetamine use ( last use about 2 months ago ) presented to outside hospital with increased back pain. She described intermittent spasms, radiation of pain down her LLE. No loss of bowel and no urinary retention. She then had an outpatient MRI comp leted that was concerning for spinal osteomyelitis. No lower extremity weakness , but trouble walking secondary to pain. NS, ID and IR consulted. S/p aspiration 06/25. Started empirically on vancomyci n and cefepime. No growth to date on culture. Assessment/Plan: Osteomyelitis of lumbar spine (HCC) -Likely secondary to IV drug use -CRP presentation is 22, ER 90. -Blood cultures and disc aspiration - negative to date -MRI of lumbar spine showed discitis and osteomyelitisof L5-S1.No epidural abscess. -Continue vancomycin and cefepime per ID, 6 weeks IV abx - Neurosurgery signed off - PT consult IVDU (intravenous drug user) -History of IV methamphetamine use, stopped 8 weeks ago when she from . -UDS at outside hospital negative -HIV and hepatitis testing negative -TTE showed no evidence of valvular vegetations Tobacco abuse Patient is a daily smoker, half pack per day with a 15-year pack history, unfort unately she isunwilling to quit at this time -encourage cessation DVT Prophylaxis: SCDs Code Status: Full Code Disposition: Remain inpatient for osteomyelitis treatment and pain control No active isolations Subjective: NAEON. She reports unchanged pain. Has been able to ambulate to bathroom. Good a ppetite this AM. Thinks that her occasional nausea is related to her doses of ox ycodone. Objective: Physical Exam: weight is 78.9 kg (174 lb). Her oral temperature is 36.5 C (97.7 F). Her bl ood pressure is 103/67 and her pulse is 71. Her respiration is 18 and oxygen sat uration is 93%. Alert and oriented x person, place, year Cardiovascular: Regular rate, regular rhythm, no murmur, no S3 Lungs: no wheezes, no crackles, no rhonchi Abdomen: Soft, non tender, bowel sounds normal active Extremities: No lower extremity edema, radial pulses 2+ bilateral, posterior tib ial pulses 2+ bilateral, able to move toes, normal sensation in lower extremity Centeno Catheter: No Laboratory Data: Most Recent Result within the last 7 days Lab Units 06/28/21 0719 SODIUM MEQ/L 139 POTASSIUM MEQ/L 4.4 CHLORIDE MEQ/L 103 CARBON DIOXIDE MEQ/L 25 BLOOD UREA NITROGEN mg/dL 13 CREATININE mg/dL 0.5 GLUCOSE mg/dL 83 CALCIUM mg/dL 9.9 Most Recent Result within the last 7 days Lab Units 06/28/21 0719 WBC TH/uL 8.33 HEMOGLOBIN g/dL 10.2* HEMATOCRIT % 31* PLATELET COUNT TH/uL 444* Scheduled medications: cefepime 2 g Intravenous Q8H MOON lactobacillus-inulin 1 capsule Oral BID melatonin 6 mg Oral Nightly orphenadrine 60 mg Intravenous Q12H MOON vancomycin 1,250 mg Intravenous Q12H Intake/Output Summary (Last 24 hours) at 06/28/2021 0916 Last data filed at 06/28/2021 0727 Gross per 24 hour Intake 480 ml Output 900 ml Net -420 ml Seen with Deana Teran MSVI Associated attestation - Devante Swartz DO - 06/28/2021 2:19 PM CDT Attending Physician Attestation: This student note was written for presentation during teaching rounds today. The content, without my revision, is submitted as a requirement of the clinical amanda rkship, but not intended to be part of the official medical record. My examinat ion, assessment, and plan is included with the resident documentation in a separ ate note. Devante Swartz DO [facility] Hospitalist [phone] * May Clarke - 06/28/2021 7:23 AM CDT [facility] INFECTIOUS DISEASE PROGRESS NOTE REASON FOR SEEING PATIENT: Vertebral osteomyelitis SUBJECTIVE: Patient reports she's feeling well this morning, states her spasms are improving from yesterday. denies fever, chills, dysuria. OBJECTIVE: Afebrile overnight, VSS MEDICATIONS: Scheduled Medications: cefepime 2 g Intravenous Q8H MOON lactobacillus-inulin 1 capsule Oral BID melatonin 6 mg Oral Nightly orphenadrine 60 mg Intravenous Q12H MOON vancomycin 1,250 mg Intravenous Q12H Continuous Infusions: PRN Medications: acetaminophen OR acetaminophen, ALPRAZolam, aluminum-magnesium hydroxide-sim ethicone, benzocaine-menthoL, bisacodyL, docusate sodium, fentaNYL, guaiFENesin, magnesium sulfate, miconazole nitrate, nitroglycerin, ondansetron, oxyCODONE, p olyethylene glycol, potassium chloride OR potassium bicarb-citric acid OR* * potassium chloride in water, prochlorperazine OR prochlorperazine OR p rochlorperazine, sodium chloride, sodium chloride 0.9% LABORATORY RESULTS: Last CBC: Most Recent Result within the last 7 days Lab Units 06/25/21 0836 WBC TH/uL 8.76 HEMOGLOBIN g/dL 9.1* HEMATOCRIT % 27* PLATELET COUNT TH/uL 408* Last BMP: Most Recent Result within the last 7 days Lab Units 06/25/21 0836 SODIUM MEQ/L 143 POTASSIUM MEQ/L 3.8 CHLORIDE MEQ/L 109 CARBON DIOXIDE MEQ/L 23 BLOOD UREA NITROGEN mg/dL 15 CREATININE mg/dL 0.5 CALCIUM mg/dL 8.9 No results found for: PROCALCIT CULTURES: Results for orders placed or performed during the hospital encounter of 06/25/21 Culture, Blood Collection Time: 06/25/21 3:02 AM Specimen: Blood - Culture Result No growth at 2 days Narrative RIGHT AC 10ML Culture, Blood Collection Time: 06/25/21 3:13 AM Specimen: Blood - Culture Result No growth at 2 days Narrative LEFT AC 10ML MRSA Nasal PCR Collection Time: 06/25/21 3:20 AM Specimen: NASOPHARYNGEAL SWAB - MRSA PCR Not Detected Not Detected Source NPSWAB Culture, Anaerobe Collection Time: 06/25/21 6:02 PM Specimen: Disc - Culture Result Anaerobe Culture In Progress Culture, AFB Collection Time: 06/25/21 6:02 PM Specimen: Disc - AFB Stain No Acid Fast Bacilli seen on fluorescent stain. Culture result Mycobacteriology Acid-Fast Culture In Progress Culture, Fungus Collection Time: 06/25/21 6:02 PM Specimen: DISC ASPIRATE - Fungus Culture Fungal culture in progress Culture, Wound with Gram Stain (Aerobic) Collection Time: 06/25/21 6:02 PM Specimen: DISC ASPIRATE - Gram Stain Rare Polymorphonuclear leukocytes Gram Stain No squamous epithelial cells seen Gram Stain No organisms seen Culture Result No growth at 1 day CULTURE SUMMARY: 06/25 Blood cultures x 2: NGTD 2 days 06/25 MRSA nasal PCR: Not detected 06/25 Wound culture (Disc aspirate): no growth at 2 days, updated 06/28 06/25 Fungus culture (Disc aspirate): culture in progress 06/25 AFB (Disc): no AFB seen on fluorescent stain, culture in progress 06/25 Anaerobes (Disc): In progress SEROLOGIES: COVID PCR negative HIV negative Hepatitis negative IMAGING 06/27 Echo TTE 1. Normal LV and RV size and systolic function. LVEF estimated at 60%. 2. Normal diastolic function. 3. No significant valvular abnormalities. 4. No obvious valvular vegetations. If high clinical suspicion for endoc arditis, consider MACIE. 06/26 MRI lumbar spine w wo contrast Acute discitis osteomyelitis at L5-S1 with prominent enhancing epidural phlegmon resulting in left lateral recess effacement and mild spinal canal narrowing at L5-S1. No epidural abscess. Peripherally enhancing fluid in the L5-S1 disc extends into the prevertebral soft tissues with a tiny prevertebral abscess at L5-S1. PHYSICAL EXAMINATION: Vitals: 06/28/21 0600 BP: Pulse: Resp: Temp: TempSrc: SpO2: Weight: 78.9 kg (174 lb) Temp (24hrs), Av.1 C (98.7 F), Min:36.7 C (98.1 F), Max:37.4 C (99 .3 F) Cardiovascular: Regular rate, regular rhythm, no murmur, no S3 Lungs: no wheezes, no crackles, no rhonchi Abdomen: Soft, non tender, bowel sounds normal active Extremities: No lower extremity edema, radial pulses 2+ bilateral, posterior tib ial pulses 2+ bilateral PROBLEM LIST: Principal Problem: Osteomyelitis of lumbar spine (HCC) Active Problems: IVDU (intravenous drug user) LOS: 3 days IMPRESSION: 1. L5-[id number] with question of an epidural abscess 2. History of IV drug use RECOMMENDATIONS Student note for learning, pending review and addendum by Dr. Martinez Continue empiric vanco and cefepime, 6 weeks IV antibiotics Follow up cultures No PICC line for now Pend TTE Electronically signed by May Clarke MD 06/28/2021 7:23 AM Associated attestation - Zoe Martinez MD - 06/28/2021 1:29 PM CDT This is a medical student note. It is for student learning purposes only. No rec ommendations should be taken from this note. It has been reviewed and acknowledg ed by me. Electronically signed by Zoe Martinez MD 06/28/2021 1:29 PM * Zoe Martinez MD - 06/27/2021 1:40 PM CDT [facility] INFECTIOUS DISEASE PROGRESS NOTE REASON FOR SEEING PATIENT: Vertebral osteomyelitis SUBJECTIVE: No acute events OBJECTIVE: Afebrile MEDICATIONS: Scheduled Medications: cefepime 2 g Intravenous Q8H MOON lactobacillus-inulin 1 capsule Oral BID melatonin 6 mg Oral Nightly orphenadrine 60 mg Intravenous Q12H MOON sodium chloride 0.9 % vancomycin 1,250 mg Intravenous Q12H Continuous Infusions: PRN Medications: acetaminophen OR acetaminophen, ALPRAZolam, aluminum-magnesium hydroxide-sim ethicone, benzocaine-menthoL, bisacodyL, docusate sodium, fentaNYL, guaiFENesin, magnesium sulfate, miconazole nitrate, nitroglycerin, ondansetron, oxyCODONE, p olyethylene glycol, potassium chloride OR potassium bicarb-citric acid OR* * potassium chloride in water, prochlorperazine OR prochlorperazine OR p rochlorperazine, sodium chloride, sodium chloride 0.9% LABORATORY RESULTS: Last CBC: Most Recent Result within the last 7 days Lab Units 06/25/21 0836 WBC TH/uL 8.76 HEMOGLOBIN g/dL 9.1* HEMATOCRIT % 27* PLATELET COUNT TH/uL 408* Last BMP: Most Recent Result within the last 7 days Lab Units 06/25/21 0836 SODIUM MEQ/L 143 POTASSIUM MEQ/L 3.8 CHLORIDE MEQ/L 109 CARBON DIOXIDE MEQ/L 23 BLOOD UREA NITROGEN mg/dL 15 CREATININE mg/dL 0.5 CALCIUM mg/dL 8.9 No results found for: PROCALCIT CULTURES: Results for orders placed or performed during the hospital encounter of 06/25/21 Culture, Blood Collection Time: 06/25/21 3:02 AM Specimen: Blood - Culture Result No growth at 1 day Narrative RIGHT AC 10ML Culture, Blood Collection Time: 06/25/21 3:13 AM Specimen: Blood - Culture Result No growth at 1 day Narrative LEFT AC 10ML MRSA Nasal PCR Collection Time: 06/25/21 3:20 AM Specimen: NASOPHARYNGEAL SWAB - MRSA PCR Not Detected Not Detected Source NPSWAB Culture, Anaerobe Collection Time: 06/25/21 6:02 PM Specimen: Disc - Culture Result Anaerobe Culture In Progress Culture, AFB Collection Time: 06/25/21 6:02 PM Specimen: Disc - AFB Stain No Acid Fast Bacilli seen on fluorescent stain. Culture result Mycobacteriology Acid-Fast Culture In Progress Culture, Fungus Collection Time: 06/25/21 6:02 PM Specimen: DISC ASPIRATE - Fungus Culture Fungal culture in progress Culture, Wound with Gram Stain (Aerobic) Collection Time: 06/25/21 6:02 PM Specimen: DISC ASPIRATE - Gram Stain Rare Polymorphonuclear leukocytes Gram Stain No squamous epithelial cells seen Gram Stain No organisms seen Culture Result No growth at 1 day CULTURE SUMMARY: 06/25 disc aspirate in process SEROLOGIES: - IMAGING - PHYSICAL EXAMINATION: Vitals: 06/27/21 1219 BP: 120/76 Pulse: 91 Resp: 18 Temp: 37.4 C (99.3 F) TempSrc: Oral SpO2: 95% Weight: Temp (24hrs), Av C (98.6 F), Min:36.8 C (98.2 F), Max:37.4 C (99.3 F) - PROBLEM LIST: Principal Problem: Osteomyelitis of lumbar spine (HCC) Active Problems: IVDU (intravenous drug user) LOS: 2 days IMPRESSION: 1. L5-S1 osteomyelitis with question of an epidural abscess 2. History of IV drug use RECOMMENDATIONS Continue empiric vanco and cefepime Follow up cultures No PICC line for now Electronically signed by oZe Martinez MD 06/27/2021 1:40 PM * Deana Teran - 06/27/2021 12:43 PM CDT [facility] VETERINARY [employer]OR Hospitalist Progress Note Patient Name: Jill Marquez Age: 45 y.o. Sex: female Admit Date: 06/25/2021 Length of Stay: 2 Days Chief Complaint: vertebral osteomyelitis Summary Statement: Jill Marquez 45 year old female with a past history of IV metha mphetamine use who presented to outside hospital with increased back pain. She described intermittent spasms, radiation of pain down her LLE. No loss of bowel and no urinary retention. She then had an outpatient MRI completed that was co ncerning for spinal osteomyelitis. No lower extremity weakness, but trouble wal agatha secondary to pain. NS, ID and IR consulted. S/p aspiration 06/25. Started empirically on vancomyci n and cefepime. 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 -Blood cultures negative to date. -MRI of lumbar spine showed discitis and osteomyelitis of L5-S1. No epidural ab scess. -s/p IR guided aspiration - cx pending -Continue vancomycin and cefepime per ID - Neurosurgery signed off IVDU (intravenous drug user) -History of IV methamphetamine use, stopped 8 weeks ago when she from . -UDS at outside hospital negative -HIV and hepatitis testing negative -TTE ordered today Tobacco abuse Patient is a daily smoker, half pack per day with a 15-year pack history, unfort unately she is unwilling to quit at this time - encourage cessation DVT Prophylaxis: SCDs Code Status: Full Code Disposition: remain inpatient for osteomyelitis treatment and pain control No active isolations Subjective: Patient resting more comfortably this AM. She continues to have pain, but says t hat it is not worse. She has been able to stand and go to the bathroom by hersel f with some pain. Objective: Physical Exam: weight is 78.9 kg (174 lb). Her oral temperature is 37.4 C (99.3 F). Her bl ood pressure is 120/76 and her pulse is 91. Her respiration is 18 and oxygen sat uration is 95%. Alert and oriented x person, place, year Cardiovascular: Regular rate, regular rhythm, no murmur, no S3 Lungs: no wheezes, no crackles, no rhonchi Abdomen: Soft, non tender, bowel sounds normal active Extremities: No lower extremity edema, radial pulses 2+ bilateral, posterior tib ial pulses 2+ bilateral Centeno Catheter: No Laboratory Data: Most Recent Result within the last 7 days Lab Units 06/25/21 0836 SODIUM MEQ/L 143 POTASSIUM MEQ/L 3.8 CHLORIDE MEQ/L 109 CARBON DIOXIDE MEQ/L 23 BLOOD UREA NITROGEN mg/dL 15 CREATININE mg/dL 0.5 GLUCOSE mg/dL 81 CALCIUM mg/dL 8.9 Most Recent Result within the last 7 days Lab Units 06/25/21 0836 WBC TH/uL 8.76 HEMOGLOBIN g/dL 9.1* HEMATOCRIT % 27* PLATELET COUNT TH/uL 408* Scheduled medications: cefepime 2 g Intravenous Q8H MOON lactobacillus-inulin 1 capsule Oral BID melatonin 6 mg Oral Nightly orphenadrine 60 mg Intravenous Q12H MOON sodium chloride 0.9 % vancomycin 1,250 mg Intravenous Q12H Intake/Output Summary (Last 24 hours) at 06/27/2021 1243 Last data filed at 06/26/2021 1917 Gross per 24 hour Intake Output 700 ml Net -700 ml Seen with Deana Teran MSVI Associated attestation - Devante Swartz DO - 06/27/2021 2:19 PM CDT Attending Physician Attestation: This student note was written for presentation during teaching rounds today. The content, without my revision, is submitted as a requirement of the clinical amanda rkship, but not intended to be part of the official medical record. My examinat ion, assessment, and plan is included with the resident documentation in a separ ate note. Devante Swartz DO [facility] [phone] * Devante Swartz DO - 06/27/2021 12:21 PM CDT [facility] Patient Name: Jill Marquez Account No: [id number] Date of : 1975 Date of Admission: 06/25/2021 2:31 AM Subjective Patient in well this morning. No acute events overnight. She reports that her back pain has significantly improved since yesterday. ROS 14 point review of system negative except above. Objective Vital Signs: Temp: 37.4 C (99.3 F) Pulse: 91 Resp: 18 BP: 120/76 SpO2: 95 % Weight: 78.9 kg (174 lb) I/O last 24 Hours: In: - Out: 700 [Urine:700] Physical Exam Gen: Calm, cooperative, and in no distress HEENT: Head: Normal, normocephalic, atraumatic. Eye: Normal external eye, conjun ctiva, eye lids, and cornea. CV: Regular rate and rhythm, No murmurs, gallops, or rubs Resp: Clear to auscultation, Breath sounds are equal and symmetric Abd: Soft, Non-tender, Non-distended, Normal bowel sounds Ext: No clubbing, cyanosis, or edema Skin: Warm, dry, skin intact with no obvious rashes or significant lesions Neuro: Alert, Oriented to person, place, date, and situation, No focal neurolog ic deficits noted Assessment/Plan Problems addressed with today's visit include: * Osteomyelitis of lumbar spine (HCC) -CRP presentation is 22, ER 90. -Blood cultures negative to date. -MRI of lumbar spine showed discitis and osteomyelitis of L5-S1. No epidural ab scess. -Status post IR guided aspiration. Cultures pending. -Continue vancomycin and cefepime. -Transthoracic echo ordered. IVDU (intravenous drug user) -History of IV methamphetamine use, stopped 8 weeks ago when she from . -UDS at outside hospital negative -HIV and hepatitis testing negative See my orders for additional details regarding this patients treatment plan. Expected Discharge Date The patient's predicted discharge date is 06/30/2021, but this doesn't guarantee a discharge on this date. Anticipated Discharge Destination The patient's anticipated discharge destination [facility] (??). Room: [place] [address] Diet: Diet-Regular VTE Prevention: Appropriate VTE mechanical treatment ordered. Code Status: Full Code Centeno Catheter: N/A Scheduled Meds: cefepime 2 g Intravenous Q8H MOON lactobacillus-inulin 1 capsule Oral BID melatonin 6 mg Oral Nightly orphenadrine 60 mg Intravenous Q12H MOON sodium chloride 0.9 % vancomycin 1,250 mg Intravenous Q12H Continuous Infusions: PRN Meds: acetaminophen OR acetaminophen, ALPRAZolam, aluminum-magnesium hydroxide-sim ethicone, benzocaine-menthoL, bisacodyL, docusate sodium, fentaNYL, guaiFENesin, magnesium sulfate, miconazole nitrate, nitroglycerin, ondansetron, oxyCODONE, p olyethylene glycol, potassium chloride OR potassium bicarb-citric acid OR* * potassium chloride in water, prochlorperazine OR prochlorperazine OR p rochlorperazine, sodium chloride, sodium chloride 0.9% Ashley Lynne MD Internal Medicine, PGY-III . HOSPITALIST STAFF: I PERSONALLY SAW AND EVALUATED THE PATIENT, DISCUSSED WITH E RESIDENT AND AGREE WITH THE FINDINGS AND PLAN OF CARE DOCUMENTED IN THE RESIDE NT NOTE. I HAVE EDITED, APPROPRIATE, TO REFLECT MY FINDINGS. Patient with continued but somewhat improved low back pain. She notes it is wor se with activity and out of bed and is better in bed. She looks more comfortabl e today and is smiling. No surgical intervention planned by NS, ID plans minimum 6 weeks IV antibiotics. Plan transthoracic echo to ensure no other infection location. Disc aspiration no growth to date, blood culture no growth to date Spoke with Dr. Dami Swartz DO [facility] Please page through Voalte using template format. * Hannah Appiah PA - 06/26/2021 4:19 PM CDT Neurosurgery Progress Note Patient Name: Jill Marquez Admission Date: 06/25/2021 2:31 AM Date of Service: 06/26/2021 DATE OF SURGERY: none CHIEF COMPLAINT: suspected disc osteo at L5/S1 HOSPITAL COURSE: 45 y/o female presented on 06/25 with 6 weeks of progressive low back pain with occasional LLE pain. Reported history of IVDU. CRP elevated at 2 4.1 and ESR 90. Non contrasted MRI was concerning for L5-S1 osteodiscitis with p hlegmon. Started on antibiotics. Underwent disc aspiration on 06/25 which are marivel wing no growth to date. SUBJECTIVE: SUMMARY OF EVENTS SINCE LAST SEEN: no acute events overnight, patient continues to have back pain. 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 Labs: No lab components to display No lab components to display No lab components to display Physical Exam: Laying in bed no acute distress BL hip flexion/extension 5/5, knee extension 5/5, DF/PF/EHL 5/5 No clonus IMPRESSION and PLAN: 45 y/o female with 6 weeks of progressive back pain with herrera spected disc osteo @ L5-S1. Underwent disc aspiration on 06/26. Remains on antibi otics per ID. She does not require surgical intervention or follow up, suspect that symptoms w ill improve with time and antibiotics. We will sign off. Discussed with Dr. Marshall. Hospital Problem List: Principal Problem: Osteomyelitis of lumbar spine (HCC) Active Problems: IVDU (intravenous drug user) Tobacco abuse Lumbar back pain with radiculopathy affecting left lower extremity Hannah Appiah PA-C [facility] Neurosurgery [facility] [address] [facility], [facility] [address] Available via Voalte After 5 pm and on weekends please contact [phone] for appropriate provider PPE Statement: CHRISTIAN Sarmiento used Yellow precautions (Level 1 mask worn o benita level 3 mask, eye protection, and gloves). * Devante Swartz, DO - 06/26/2021 12:06 PM CDT [facility] Patient Name: Jill Marquez Account No: [id number] Date of : 1975 Date of Admission: 06/25/2021 2:31 AM Subjective Follow up regarding L5-S1 OM ID evaluated the patient yesterday and recommended IR joint aspiration as well a s MRI lumbar spine. IR joint aspirate cultures pending. MRI not done yet. Remain s on empiric vanc and cefepime. This morning she notes her pain is the same. She had difficulty sleeping overnig ht and getting comfortable. No bowel or bladder incontinence. Review of Systems Constitutional: Negative for fever. Respiratory: Negative for shortness of breath. Cardiovascular: Negative for chest pain. Gastrointestinal: Negative for abdominal pain. Objective Vital Signs: Temp: 37.8 C (100.1 F) Pulse: 99 Resp: 18 BP: 110/80 SpO2: 95 % Weight: 78.9 kg (174 lb) No intake/output data recorded. Physical Exam Constitutional: General: She is not in acute distress. Eyes: General: No scleral icterus. Extraocular Movements: Extraocular movements intact. Pulmonary: Effort: Pulmonary effort is normal. No respiratory distress. Skin: General: Skin is warm and dry. Coloration: Skin is not jaundiced. Neurological: General: No focal deficit present. Mental Status: She is alert and oriented to person, place, and time. Psychiatric: Mood and Affect: Affect is flat. Speech: Speech normal. I have personally reviewed the patient's vital signs, laboratory/pathology/cultu re results (as indicated), current inpatient medications, otm consultant notes and s upport staff notes with pertainent findings noted within the assessment/plan. Assessment/Plan Jill Marquez 45 year old female with a past history of IV methamphetamine use who presented to outside hospital with increased back pain. She described intermitt ent spasms, radiation of pain down her LLE. No loss of bowel and no urinary ret ention. She then had an outpatient MRI completed that was concerning for spinal osteomyelitis. No lower extremity weakness, but trouble walking secondary to p ain. NS, ID and IR consulted. S/p aspiration 06/25. Started empirically on vancomyci n and cefepime. Problems addressed with today's visit include: * Osteomyelitis of lumbar spine (HCC) Likely due to IV drug use ESR 90, CRP 24 - follow-up blood and joint aspirate cultures - continue cefepime & vancomycin - consult neurosurgery - consult infectious disease Lumbar back pain with radiculopathy affecting left lower extremity - pain control - see osteomyelitis of the spine IVDU (intravenous drug user) History of IV methamphetamine use, stopped 8 weeks ago when she from [place] a[facility] at outside hospital negative - HIV and hepatitis testing negative Tobacco abuse Patient is a daily smoker, half pack per day with a 15-year pack history, unfort unately she is unwilling to quit at this time - encourage cessation See my orders for additional details regarding this patients treatment plan. Expected Discharge Date The patient's predicted discharge date is 06/29/2021, but this doesn't guarantee a discharge on this date. Anticipated Discharge Destination The patient's anticipated discharge destination is [facility]. Room: [place] [address] Diet: Diet-Regular VTE Prevention: Appropriate VTE mechanical treatment ordered. Code Status: Full Code Centeno Catheter: N/A Scheduled Meds: cefepime 2 g Intravenous Q8H MOON lactobacillus-inulin 1 capsule Oral BID melatonin 6 mg Oral Nightly vancomycin 1,250 mg Intravenous Q12H Continuous Infusions: sodium chloride 0.9 % 130 mL/hr (06/26/21 0527) PRN Meds: acetaminophen OR acetaminophen, ALPRAZolam, aluminum-magnesium hydroxide-sim ethicone, benzocaine-menthoL, bisacodyL, docusate sodium, fentaNYL, guaiFENesin, magnesium sulfate, methocarbamoL, miconazole nitrate, nitroglycerin, ondansetro n, oxyCODONE, polyethylene glycol, potassium chloride OR potassium bicarb-ci tric acid OR potassium chloride in water, prochlorperazine OR prochlorpe razine OR prochlorperazine, sodium chloride Bridgette Conde MD PGY3 IM . HOSPITALIST STAFF: I PERSONALLY SAW AND EVALUATED THE PATIENT, DISCUSSED WITH E RESIDENT AND AGREE WITH THE FINDINGS AND PLAN OF CARE DOCUMENTED IN THE RESIDE NT NOTE. I HAVE EDITED, APPROPRIATE, TO REFLECT MY FINDINGS. 45 year old with discitis / osteomyelitis now status post aspiration by [facility] - Neurology. Patient continues to complain of significant low back pain, notes the pain shots not working great and makes her feel worse in her head. D iscussed risk benefit and side effects of narcotics and that side effects can be stronger than pain effects. Disc aspiration no growth to date and no organisms seen ( she was on IV antibiot ics at time of aspiration ). Devante Swartz DO [facility] Please page through Voalte using template format. * Delbert Sandoval, PharmD - 06/26/2021 6:13 AM CDT Follow-up Pharmacokinetic Consult: Anti-Infective Dosing Assessment/Plan Pharmacy has been consulted on Jill Marquez to dose vancomycin for osteomyelitis. Based on a 9h30m trough of 11 mcg/mL, will continue dose of 1250mg IV every 12 h ours. Plan to target vancomycin trough of 10-20 mcg/mL. Pharmacy will continue to follow the patients culture results and clinical pr ogress daily. Relevant clinical data and objective history reviewed: Creatinine Date Value Ref Range Status 06/25/2021 0.5 0.4 - 1.1 mg/dL Final Dialysis Modality Requirements: None; CrCl cannot be calculated (Unknown ideal w eight.). No intake/output data recorded. Lab Results Component Value Date/Time WBC 8.76 06/25/2021 08:36 AM No results found for: PROCALCIT Temp Readings from Last 3 Encounters: 06/26/21 36.9 C (98.5 F) (Oral) Culture: Results for orders placed or performed during the hospital encounter of 06/25/21 MRSA Nasal PCR Collection Time: 06/25/21 3:20 AM Specimen: NASOPHARYNGEAL SWAB - MRSA PCR Not Detected Not Detected Source NPSWAB Culture, Blood Collection Time: 06/25/21 5:28 AM Specimen: Blood Narrative RIGHT AC 10ML Culture, Blood Collection Time: 06/25/21 6:15 AM Specimen: Blood Narrative LEFT AC 10ML Culture, Wound with Gram Stain (Aerobic) Collection Time: 06/25/21 6:02 PM Specimen: DISC ASPIRATE - Gram Stain Rare Polymorphonuclear leukocytes Gram Stain No squamous epithelial cells seen Gram Stain No organisms seen Delbert Sandoval PharmD documented in this encounter H&P Notes * Devante Swartz, DO - 06/25/2021 6:34 AM CDT [facility] Patient Name: Jill Marquez Account No: [id number] Date of : 1975 Date of Admission: 06/25/2021 2:31 AM Primary Care Physician: No primary care provider on file.; Phone: None Subjective Chief Complaint: osteomyelitis of spine History of Present illness: Ms. Jill Marquez is a 45 y.o. female with a past medic al history of IV drug use, tobacco abuse who presented as a transfer from [facility] with osteomyelitis of the spine. Patient reports a 6-week history of progressively worsening back pain. She repo rts initially started out as backache. Progressed to intermittent spasms with r adiculopathy down her left lower extremity. She sought treatment in the emergen cy department was treated with steroids and injections. She reports been seen m ultiple times in emergency department also been seen by Dr. Donaldson local clinic. Patient reports she has been having intermittent night sweats up until last we ek. She reports intermittent fevers with chills. She denies nausea, vomiting o r diarrhea. She reports she has been taking [id number] mg Tylenol 3 times a day for the past 2 weeks to help with the pain. She reports the pain is worsened wi th movement and lying flat. Improves with lying on her right side. Patient den ies loss of bowel or bladder control, no loss of motion or sensation, no extremi ty weakness, no neck stiffness or tenderness. Patient reports she had an MRI do ne yesterday and was contacted by her doctor asking her to report urgently to e emergency department. Patient reports a history of IV methamphetamine use. She reports she used metham phetamines until she stopped 8 weeks ago after separation from her . Patient was discussed with Dr. Norton of neurosurgery prior to transfer. Outside hospital vital signs temp 36.8, heart rate 120, respiration 22, BP 119/6 8, and 97% on room air. Outside hospital labs: WBC 13.9, hemoglobin 11.1, platelet 530, ESR 68, potassiu m 3.4, chloride 108, creatinine 0.69, corrected calcium 10.3. PT 10.22, protein 8.6, UA negative, UDS clear. Patient was treated with cefepime and vancomycin prior to transfer MRI lumbar spine without contrast: Findings concerning for L5-S1 osteomyelitis d iscitis with potential epidural abscess formation. Review of Systems Constitutional: Positive for chills and fever. Intermittent night sweats HENT: Negative. Eyes: Negative. Respiratory: Negative. Cardiovascular: Negative. Gastrointestinal: Negative. Genitourinary: Negative. Musculoskeletal: Positive for back pain. Negative for falls. With intermittent left lower extremity radiculopathy Skin: Negative. Neurological: Negative. Endo/Heme/Allergies: Negative. Psychiatric/Behavioral: Negative. Medical History Diagnosis Date IV drug user Methamphetamine Tobacco abuse Surgical History Procedure Laterality Date CHOLECYSTECTOMY TUBAL LIGATION Family History Problem Relation Age of Onset Hypothyroidism Mother Cirrhosis Mother Diabetes Mother Diabetes Father Hypertension Father No Known Problems Sister Social History Tobacco Use Smoking status: Current Every Day Smoker Packs/day: 0.50 Years: 30.00 Pack years: 15.00 Smokeless tobacco: Never Used Vaping Use Vaping Use: Unknown Substance Use Topics Alcohol use: Not Currently Drug use: Not Currently Allergies No Known Allergies Prior to Admission Medications Not on File Objective Triage Vital Signs: Temp: 36.7 C (98.1 F) Pulse: 80 Resp: 16 BP: 119/67 SpO2 : 100 % Weight: 80.9 kg (178 lb 6.4 oz) Physical Exam Gen: Calm, cooperative, and in no distress HEENT: Head: Normal, normocephalic, atraumatic. Eye: Normal external eye, conjun ctiva, eye lids, and cornea. Ears: No tenderness or drainage Nose: Normal rental coordinator al nose, mucus membranes, and septum. Pharynx: Multiple dental caries, no pharyn geal erythema Neck: no asymmetry, masses, or scars, supple without significant a denopathy, No nuchal rigidity or stiffness, full range of motion of neck CV: Regular rate and rhythm, No murmurs, gallops, or rubs Resp: Clear to auscultation, Breath sounds are equal and symmetric Abd: Soft, Non-tender, Non-distended, Normal bowel sounds Ext: No edema Skin: Warm, dry, skin intact with no obvious rashes or significant lesions Neuro: Alert, Oriented to person, place, date, and situation, No focal neurolog ic deficits noted Psych: Normal mood and affect ECG ordered, but has not been completed. Will review once completed. I have personally reviewed the patient's vital signs, laboratory/pathology/cultu re results (as indicated), imaging studies (results were not discussed with the performing provider), diagnostic tests/studies (results were not discussed with the performing provider), current inpatient medications, health support specialist notes, pr ior admission/outpatient notes, prior to admission medications and outside medic al records with pertainent findings noted within the assessment/plan. I have per sonally reviewed and updated the patient's past medical history, past surgical h istory, family history and social history as needed. Assessment/Plan Ms. Jill Marquez is a 45 y.o. female who was admitted on 06/25/2021 with complaint of osteomyelitis of spine. Problems addressed with today's visit include: * Osteomyelitis of lumbar spine (HCC) - Continue cefepime/vancomycin pending cultures - blood cultures pending, sed rate, CRP - MRSA nasal PCR - consult neurosurgery - consult infectious disease Lumbar back pain with radiculopathy affecting left lower extremity - Pain control -See osteomyelitis of the spine IVDU (intravenous drug user) History of IV methamphetamine use, stopped 8 weeks ago when she from [facility], S at outside hospital clear Tobacco abuse Patient is a daily smoker, half pack per day with a 15-year pack history, unfort unately she is unwilling to quit at this time. -Encourage cessation In addition, see my orders for additional details regarding this patients treatm ent plan. Diet: Diet-Regular VTE Prevention: Appropriate VTE mechanical treatment ordered. Code Status: Full Code Advanced Care Planning The patient does not have an advanced directive. The patient's sister, Tonia Wise, is her surrogate decision maker/DPOA. Disp: Admit the patient as Inpatient to [facility] with telemetry for treatmen t as noted above. Julio C Cazares APRN [facility] Medicine Division . All medications, orders and plans in this note were reviewed by or discussed wit and approved by supervising provider. VETERINARY [employer]IR[employer]UM INSPECTOR Hospitalist Attestation: I personally interviewed and examined the Ms. Jill Marquez. I discussed the findin gs with nurse practitioner and reviewed the nurse practitioners note. I agree th e findings with exceptions noted. CC: back pain HPI (Brief): 45 year old lady, past history of IV drug abuse, presented to [facility] with increased back pain. She described intermittent spasms, radiat ion of pain down her LLE. She is also have fevers or chills and sweating episod es. No associated nausea, vomiting, and diarrhea. No loss of bowel and no urinary retention. She then had an outpatient MRI compl eted that was concerning for spinal osteomyelitis. No lower extremity weakness, but trouble walking secondary to pain and not true weakness. She was seen in ED and treated symptomatically over several visits. Objective findings and Assessment/Plan are as follows: Vital Signs: weight is 80.9 kg (178 lb 6.4 oz). Her oral temperature is 36.7 C (98.1 F). Her blood pressure is 119/67 and her pulse is 80. Her respiration is 16 and oxy gen saturation is 100%. SpO2: 100 % Physical Exam: Alert and oriented x person, place, year Constitutional: discomfort appearing HEENT: Pupils equal, sclera clear Neck: Supple Cardiovascular: Regular rate, regular rhythm, no murmur, no S3 Lungs: no wheezes, no crackles, no rhonchi Abdomen: Soft, non tender, bowel sounds normal active Extremities: No lower extremity edema, radial pulses 2+ bilateral, posterior tib ial pulses 2+ bilateral Skin: No rashes, no erythema, numerous tattoos Neuro: No focal findings, upper and lower extremities strength, proximal and dis maik, 5/5 bilateral and equal Centeno Catheter: No Assessment/Plan: 1. Spinal osteomyelitis: continue IV antibiotics as previously started. Consult NS, ? IR for aspiration, consult ID. CRP at 24, will trend. Need echo, defer to ID if transthoracic echo versus MACIE. Add IV fentanyl and oxycodone ( cautiou s with IV meth history ), terminal gauger antibiotics going to be difficult with IV me th use 8 weeks ago. Social work consult 2. IV drug abuse: none per 8 weeks per patient, recommend complete avoidance. Ch mirna HIV ( patient agrees ), check hepatitis panel 3. Tobaccoism: recommend complete cessation, offer nicotine replacement therapy DVT PPx: SQ heparin Code Status: Full Code Devante Swartz DO [facility] Please page through physician paging link using template format. Disp: Admit the patient as Inpatient to Intermediate for treatment as noted sulma abebe Electronically signed by Devante Swartz 06/25/2021 7:04 AM documented in this encounter Procedure Notes * Daniel Moura DO - 06/25/2021 6:02 PM CDT Procedures Neurointerventional Radiology Post Procedure Note Attending: Dami Assistants: Zeny (Neurointerventional Radiology Fellow) Pre procedure Diagnosis: L5-S1 discitis Post Procedure Diagnosis: Same as pre-procedure diagnosis Procedure: L5-S1 disc aspiration Anesthesia: Moderate Impressions/ Findings: 18g x 15 cm needle for L5-S1 disc aspiration, bloody aspirate. Please refer to the Final report under IR imaging in Epic. Vascular closure: N/A EBL: 1 mL Complications: None Condition of Patient: Stable Plan/ Follow up: Sample to lab. Rohan Moura DO Neurointerventional Radiology Fellow Kristen Gonzalez (kimmy) [phone] documented in this encounter Consult Notes * Chiquita Marshall MD - 06/25/2021 11:06 AM CDT Associated Order(s): IP CONSULT TO NEUROSURGERY [facility] NEUROSURGERY CONSULT NOTE NAME: Jill Marquez : 1975 ADMISSION DATE: 06/25/2021 PRIMARY CARE PROVIDER: No primary care provider on file. CONSULT DATE: 06/25/2021 CHIEF COMPLAINT/REASON FOR CONSULT: low back and LLE pain HISTORY OF PRESENT ILLNESS: Jill Marquez is a 45 y.o. Female being seen today in n eurosurgical consultation at the request of the primary team for the evaluation of and treatment recommendations regarding her suspected L5/S1 osteo/discitis. P adina has been having 6 weeks of progressive low back pain with occasional LLE pain. Denies any numbness and weakness. History of IVDU. No fevers. WBC 8.8. CRP 24.1. CRP 90. No blood cx results yet. PAST MEDICAL HISTORY: Past Medical History: Diagnosis Date IV drug user Methamphetamine Tobacco abuse PAST SURGICAL HISTORY: Past Surgical History: Procedure Laterality Date CHOLECYSTECTOMY TUBAL LIGATION ALLERGIES: No Known Allergies HOME MEDICATIONS: No medications prior to admission. CURRENT MEDICATIONS: Current Facility-Administered Medications Medication Dose Route Frequency Provider Last Rate Last Admin acetaminophen (TYLENOL) tablet 325-650 mg 325-650 mg Oral Q6H PRN Janna garrido MD 650 mg at 06/25/21 0831 Or acetaminophen (TYLENOL) suppository 325-650 mg 325-650 mg Rectal Q6H PRN Jocelyn Mercado MD ALPRAZolam (XANAX) tablet 0.25 mg 0.25 mg Oral Q6H PRN Janna Mercado MD aluminum-magnesium hydroxide-simethicone (MAALOX PLUS) 400-400-40 mg/5 mL herrera spension 15 mL 15 mL Oral Q4H PRN Janna Mercado MD benzocaine-menthoL (CEPACOL) lozenge 1 lozenge 1 lozenge Buccal Q1H PRN Vishal Mercado MD bisacodyL (DULCOLAX) suppository 10 mg 10 mg Rectal Daily PRN Janna menendez MD cefepime (MAXIPIME) injection 2 g 2 g Intravenous Q8H [facility] Aly Davalos harmD 2 g at 06/25/21 0523 docusate sodium (COLACE) capsule 100 mg 100 mg Oral BID PRN Janna Mercado MD fentaNYL (SUBLIMAZE) injection 12.5-25 mcg 12.5-25 mcg Intravenous Q2H PRN Devante Swartz DO guaiFENesin (ROBITUSSIN) 100 mg/5 mL syrup 200 mg 200 mg Oral Q4H PRN Estefani Mercado MD lactobacillus (CULTURELLE) 10 billion cell capsule 1 capsule Oral BID Devante Swartz DO magnesium sulfate IVPB 2 gram (premix) 2 g Intravenous PRN Janna Mercado MD melatonin tablet 3 mg 3 mg Oral Nightly PRN Janna Mercado MD methocarbamoL (ROBAXIN) tablet 750 mg 750 mg Oral TID PRN Devante Swartz DO miconazole nitrate (ALOE VESTA) 2 % ointment Topical TID PRN Janna menendez MD nitroglycerin (NITROSTAT) SL tablet 0.4 mg 0.4 mg Sublingual Q5 Min PRN Vishal Mercado MD ondansetron (ZOFRAN) injection 4 mg 4 mg Intravenous Q6H PRN Janna martinez MD oxyCODONE (ROXICODONE) immediate release tablet 5 mg 5 mg Oral Q4H PRN Alonso Swartz DO 5 mg at 06/25/21 0836 polyethylene glycol (GLYCOLAX) packet 17 g 17 g Oral Daily PRN Janna zaman MD potassium chloride (KLOR-CON) CR tablet 20 mEq 20 mEq Oral PRN Janna zaman MD Or potassium bicarb-citric acid (EFFER-K) effervescent tablet 20 mEq 20 mEq Or al PRN Janna Mercado MD Or potassium chloride 20 mEq in 100 mL IVPB 20 mEq Intravenous PRN Janna higgins MD prochlorperazine (COMPAZINE) injection 5-10 mg 5-10 mg Intravenous Q4H PRN Janna Mercado MD Or prochlorperazine (COMPAZINE) injection 5-10 mg 5-10 mg Intramuscular Q4H IL N Janna Mercado MD Or prochlorperazine (COMPAZINE) suppository 25 mg 25 mg Rectal Q12H PRN Janna Mercado MD sodium chloride (OCEAN) 0.65 % nasal spray 1 spray 1 spray Each Nare PRN Jocelyn Mercado MD sodium chloride 0.9% infusion 130 mL/hr Intravenous Continuous Janna zaman MD 130 mL/hr at 06/25/21 0318 130 mL/hr at 06/25/21 0318 vancomycin (VANCOCIN) 1,250 mg in sodium chloride 0.9 % (NS) 250 mL IVPB 1, 250 mg Intravenous Q12H Nilda Duval PharmD 166.67 mL/hr at 06/25/21 0527 1,2 50 mg at 06/25/21 05 FAMILY HISTORY: Family History Problem Relation Age of Onset Hypothyroidism Mother Cirrhosis Mother Diabetes Mother Diabetes Father Hypertension Father No Known Problems Sister SOCIAL HISTORY: Social History Socioeconomic History Marital status: Spouse name: Melvin Phelps Number of children: 2 Years of education: Not on file Highest education level: Not on file Occupational History Not on file Tobacco Use Smoking status: Current Every Day Smoker Packs/day: 0.50 Years: 30.00 Pack years: 15.00 Smokeless tobacco: Never Used Vaping Use Vaping Use: Unknown Substance and Sexual Activity Alcohol use: Not Currently Drug use: Not Currently Sexual activity: Not on file Other Topics Concern Not on file Social History Narrative Pt lives in a private residence with children. Code status: Full Surrogate decision maker: Sister: Tonia Aguilar Directive for health care: none Social Determinants of Health Financial Resource Strain: Difficulty of Paying Living Expenses: Food Insecurity: Worried About Running Out of Food in the Last Year: Ran Out of Food in the Last Year: Transportation Needs: Lack of Transportation (Medical): Lack of Transportation (Non-Medical): Physical Activity: Days of Exercise per Week: Minutes of Exercise per Session: Stress: Feeling of Stress : Social Connections: Frequency of Communication with Friends and Family: Frequency of Social Gatherings with Friends and Family: Attends Buddhist Services: Active Member of Clubs or Organizations: Attends Club or Organization Meetings: Marital Status: Intimate Partner Violence: Fear of Current or Ex-Partner: Emotionally Abused: Physically Abused: Sexually Abused: PHYSICAL EXAM: Temp (24hrs), Av.1 C (98.7 F), Min:36.7 C (98.1 F), Max:37.3 C (99 .2 F) BP 121/60 (Patient position: Supine) | Pulse 92 | Temp 37.3 C (99.2 F) (Or al) | Resp 18 | Wt 80.9 kg (178 lb 6.4 oz) | SpO2 97% GEN: Ms. Marquez is a pleasant, well-nurished appearing female resting comfortably in no acute distress. Neuro: On neurological examination: Patient awake, alert, conversational Strength Iliopsoas right 5 left 5 Quadricep right 5 left 5 Dorsiflexion right 5 left 5 Extensor Hallicus Longus right 5 left 5 Plantarflexion right 5 left 5 Sensation WNL B/L LE Clonus absent REVIEW OF SYSTEMS A 10 system review of systems was negative except for where noted in the history of present illness above. LABORATORY: Most Recent Result from last 24 hours Lab Units 06/25/21 0836 SODIUM MEQ/L 143 POTASSIUM MEQ/L 3.8 CHLORIDE MEQ/L 109 CARBON DIOXIDE MEQ/L 23 BLOOD UREA NITROGEN mg/dL 15 CALCIUM mg/dL 8.9 WBC TH/uL 8.76 HEMOGLOBIN g/dL 9.1* HEMATOCRIT % 27* PLATELET COUNT TH/uL 408* PROTEIN TOTAL SERUM g/dL 6.2 ALKALINE PHOSPHATASE IU/L 93 ALANINE AMINOTRANSFERASE IU/L 13 ASPARTATE AMINOTRANSFERASE IU/L 13* STUDIES REVIEWED MRI L-spine from yesterday shows L5/S1 likely osteodiscitis with phlegmon eccent josi to the left causing some L lateral recess stenosis ASSESSMENT/PLAN: Principal Problem: Osteomyelitis of lumbar spine (HCC) Active Problems: IVDU (intravenous drug user) Tobacco abuse Lumbar back pain with radiculopathy affecting left lower extremity 45F w/ likely L5/S1 osteo/discits -no acute neurosurgical intervention -agree with ID consult, abx, and IR bx of L5/S1 disc space -pain control with PO pain meds -will follow PPE Statement: Chiquita Marshall MD used Yellow precautions (Level 3 mask, eye p rotection, and gloves). Chiquita Marshall MD Manager [employer] [facility] [address], [address] [address] (phone) [phone] (fax) * Norbert Willard MD - 06/25/2021 7:45 AM CDT Associated Order(s): IP CONSULT TO INFECTIOUS DISEASE [facility] INFECTIOUS DISEASE CONSULTATION NAME: Jill Marquez AGE: 45 y.o. : 1975 ADMISSION DATE: 06/25/2021 PRIMARY CARE PROVIDER: No primary care provider on file. ATTENDING PHYSICIAN: Devante Swartz DO REASON FOR CONSULT: Vertebral osteomyelitis HISTORY OF PRESENT ILLNESS: 45 y.o. female with a past medical history of IV drug use, tobacco abuse who pre sented as a transfer from [facility] with osteomyelitis of the spine . Patient reports 6-week history of progressively worsening back pain. She initia lly had backache. She sought treatment in the emergency department, was treated with steroids and intramuscular injections. She reports having been seen multip le times in emergency department. Also been seen by Dr. Donaldson at local clinic. Patient reports she has been having intermittent night sweats up until last wee k. She reports intermittent fevers with chills. She denies nausea, vomiting or diarrhea. She reports she has been taking 5611-5274 mg Tylenol 3 times a day f or the past 2 weeks to help with the pain. She reports the pain is worsened wit h movement and lying flat .Her pain improves with lying on her right side. Billie ent denies loss of bowel or bladder control, no loss of motion or sensation, no extremity weakness, no neck stiffness or tenderness. Patient reports she had an MRI done yesterday which showed lumbar osteomyelitis and epidural abscess and w as contacted by her doctor asking her to report urgently to the emergency depart ment. Patient reports a history of IV methamphetamine use for last 2-3 years. She repo rts she used methamphetamines until she stopped 8 weeks ago after separation fro m her . She used needles her had used and he had licked (he actua lly does her injections) but did not clean the site of injection. She denies any previous back problems. CURRENT MEDICATIONS: Current Facility-Administered Medications Medication Dose Route Frequency Provider Last Rate Last Admin acetaminophen (TYLENOL) tablet 325-650 mg 325-650 mg Oral Q6H PRN Janna garrido MD Or acetaminophen (TYLENOL) suppository 325-650 mg 325-650 mg Rectal Q6H PRN Jocelyn Mercado MD ALPRAZolam (XANAX) tablet 0.25 mg 0.25 mg Oral Q6H PRN Janna Mercado MD aluminum-magnesium hydroxide-simethicone (MAALOX PLUS) 400-400-40 mg/5 mL herrera spension 15 mL 15 mL Oral Q4H PRN Janna Mercado MD benzocaine-menthoL (CEPACOL) lozenge 1 lozenge 1 lozenge Buccal Q1H PRN Vishal Mercado MD bisacodyL (DULCOLAX) suppository 10 mg 10 mg Rectal Daily PRN Janna menendez MD cefepime (MAXIPIME) injection 2 g 2 g Intravenous Q8H [facility] Aly Davalos 2 g at 06/25/21 0523 docusate sodium (COLACE) capsule 100 mg 100 mg Oral BID PRN Janna Mercado MD guaiFENesin (ROBITUSSIN) 100 mg/5 mL syrup 200 mg 200 mg Oral Q4H PRN Estefani Mercado MD lactobacillus rhamnosus (GG) (CULTURELLE)-inulin capsule 10 billion cells-20 0 mg 1 capsule Oral BID Janna Mercado MD magnesium sulfate IVPB 2 gram (premix) 2 g Intravenous PRN Janna Mercado MD melatonin tablet 3 mg 3 mg Oral Nightly PRN Janna Mercado MD miconazole nitrate (ALOE VESTA) 2 % ointment Topical TID PRN Janna menendez MD nitroglycerin (NITROSTAT) SL tablet 0.4 mg 0.4 mg Sublingual Q5 Min PRN Vishal Mercado MD ondansetron (ZOFRAN) injection 4 mg 4 mg Intravenous Q6H PRN Janna martinez MD polyethylene glycol (GLYCOLAX) packet 17 g 17 g Oral Daily PRN Janna zaman MD potassium chloride (KLOR-CON) CR tablet 20 mEq 20 mEq Oral PRN Janna zaman MD Or potassium bicarb-citric acid (EFFER-K) effervescent tablet 20 mEq 20 mEq Or al PRN Janna Mercado MD Or potassium chloride 20 mEq in 100 mL IVPB 20 mEq Intravenous PRN Janna higgins MD prochlorperazine (COMPAZINE) injection 5-10 mg 5-10 mg Intravenous Q4H PRN Janna Mercado MD Or prochlorperazine (COMPAZINE) injection 5-10 mg 5-10 mg Intramuscular Q4H IL N Janna Mercado MD Or prochlorperazine (COMPAZINE) suppository 25 mg 25 mg Rectal Q12H PRN Janna Mercado MD sodium chloride (OCEAN) 0.65 % nasal spray 1 spray 1 spray Each Nare PRN Jocelyn Mercado MD sodium chloride 0.9% infusion 130 mL/hr Intravenous Continuous Janna zaman MD 130 mL/hr at 06/25/21 0318 130 mL/hr at 06/25/21 0318 vancomycin (VANCOCIN) 1,250 mg in sodium chloride 0.9 % (NS) 250 mL IVPB 1, 250 mg Intravenous Q12H Nilda Duval PharmD 166.67 mL/hr at 06/25/21526 1,2 50 mg at 06/25/21526 ALLERGIES: Patient has no known allergies. PAST MEDICAL HISTORY: Past Medical History: Diagnosis Date IV drug user Methamphetamine Tobacco abuse PAST SURGICAL HISTORY: Past Surgical History: Procedure Laterality Date CHOLECYSTECTOMY TUBAL LIGATION PROBLEM LIST: Active Hospital Problems Diagnosis SNOMED CT(R) Date Noted Osteomyelitis of lumbar spine (HCC) OSTEOMYELITIS OF VERTEBRA 06/25/2021 IVDU (intravenous drug user) INTRAVENOUS DRUG USER 06/25/2021 Tobacco abuse TOBACCO USER 06/25/2021 Lumbar back pain with radiculopathy affecting left lower extremity LUMBAR RA DICULOPATHY 06/25/2021 Resolved Hospital Problems No resolved problems to display. FAMILY HISTORY: Family History Problem Relation Age of Onset Hypothyroidism Mother Cirrhosis Mother Diabetes Mother Diabetes Father Hypertension Father No Known Problems Sister SOCIAL HISTORY: Social History Socioeconomic History Marital status: Spouse name: Melvin Phelps Number of children: 2 Years of education: Not on file Highest education level: Not on file Occupational History Not on file Tobacco Use Smoking status: Current Every Day Smoker Packs/day: 0.50 Years: 30.00 Pack years: 15.00 Smokeless tobacco: Never Used Vaping Use Vaping Use: Unknown Substance and Sexual Activity Alcohol use: Not Currently Drug use: Not Currently Sexual activity: Not on file Other Topics Concern Not on file Social History Narrative Pt lives in a private residence with children. Code status: Full Surrogate decision maker: Sister: Tonia Aguilar Directive for health care: none Social Determinants of Health Financial Resource Strain: Difficulty of Paying Living Expenses: Food Insecurity: Worried About Running Out of Food in the Last Year: Ran Out of Food in the Last Year: Transportation Needs: Lack of Transportation (Medical): Lack of Transportation (Non-Medical): Physical Activity: Days of Exercise per Week: Minutes of Exercise per Session: Stress: Feeling of Stress : Social Connections: Frequency of Communication with Friends and Family: Frequency of Social Gatherings with Friends and Family: Attends Buddhist Services: Active Member of Clubs or Organizations: Attends Club or Organization Meetings: Marital Status: Intimate Partner Violence: Fear of Current or Ex-Partner: Emotionally Abused: Physically Abused: Sexually Abused: REVIEW OF SYSTEMS: Review of Systems Constitutional: Positive for chills. Negative for fever and weight loss. Respiratory: Negative for cough, sputum production and shortness of breath. Cardiovascular: Negative for chest pain and orthopnea. Gastrointestinal: Negative for abdominal pain, constipation, diarrhea, nausea an d vomiting. Genitourinary: Negative for dysuria, frequency and urgency. Musculoskeletal: Positive for back pain. Negative for myalgias. Skin: Negative for rash. Neurological: Negative for focal weakness and headaches. PHYSICAL EXAM: Vitals: Vitals: 06/25/21 0529 BP: Pulse: Resp: Temp: TempSrc: SpO2: Weight: 80.9 kg (178 lb 6.4 oz) Temp (24hrs), Av.7 C (98.1 F), Min:36.7 C (98.1 F), Max:36.7 C (98 .1 F) Physical Exam Vitals reviewed. HENT: Head: Normocephalic and atraumatic. Cardiovascular: Rate and Rhythm: Normal rate. Heart sounds: Normal heart sounds. No murmur heard. Pulmonary: Effort: Pulmonary effort is normal. No respiratory distress. Breath sounds: Normal breath sounds. Abdominal: General: Abdomen is flat. Palpations: Abdomen is soft. Tenderness: There is no abdominal tenderness. Musculoskeletal: General: No swelling. Comments: Midline back pain in lumbar area Skin: Comments: No splinter hemorrhages Neurological: Mental Status: She is alert. Mental status is at baseline. LABORATORY RESULTS: No lab components to display Invalid input(s): EOSPCT No lab components to display No results found for: PROCALCIT CULTURES: Results for orders placed or performed during the hospital encounter of 06/25/21 MRSA Nasal PCR Collection Time: 06/25/21 3:20 AM Specimen: NASOPHARYNGEAL SWAB - MRSA PCR Not Detected Not Detected Source NPSWAB Culture, Blood Collection Time: 06/25/21 5:28 AM Specimen: Blood Narrative RIGHT AC 10ML Culture, Blood Collection Time: 06/25/21 6:15 AM Specimen: Blood Narrative LEFT AC 10ML CULTURE SUMMARY: Blood culture 06/25 pending Treatment summary Cefepime 06/25present Vancomycin 06/25present SEROLOGIES: MRSA PCR negative IMAGING RESULTS: MRI lumbar spine L5-S1 Osteomyelitis with early epidural abscess ASSESSMENT: 1. L5-S1 osteomyelitis with question of an epidural abscess 2. History of IV drug use PLAN: Continue cefepime and vancomycin Recommend IR disc aspiration Repeat MRI L spine w wo contrast to see if she has epidural abscess (outside MRI was not done with contrast) Follow blood cultures David Neil, 06/25/2021 7:45 AM ID fellow PGY4 I saw and examined the patient with the infectious disease fellow, Dr. David Neil. I have reviewed and agree with the history, exam, assessment and plan as documented in the fellows note with editing for any exceptions based on my f indings. Electronically signed by Norbert Willard MD 06/25/2021 9:51 AM * Nilda Duval, Sudha - 06/25/2021 4:20 AM CDT Associated Order(s): IP CONSULT TO PHARMACY Initial Pharmacokinetic Consult: Anti-Infective Dosing Pharmacy has been consulted on Jill Marquez, a 45 y.o. female, to dose cefepime an d vancomycin for osteomyelitis. Relevant clinical data and objective history reviewed: No results found for: CREAT Dialysis Modality Requirements: None; CrCl cannot be calculated (No successful l ab value found.). No intake/output data recorded. No intake or output data in the 24 hours ending 06/25/21 0420 No results found for: WBC No results found for: PROCALCIT Temp Readings from Last 3 Encounters: 06/25/21 36.7 C (98.1 F) (Oral) Culture: Results for orders placed or performed during the hospital encounter of 06/25/21 Culture, Blood Collection Time: 06/25/21 3:02 AM Specimen: Blood Narrative RIGHT AC 10ML Culture, Blood Collection Time: 06/25/21 3:13 AM Specimen: Blood Narrative LEFT AC 10ML Current weight is 80.9 kg (178 lb 6.4 oz) Assessment/Plan The patient will be started on vancomycin utilizing scheduled dosing based on ac tual body weight. Will initiate a loading dose of 1250 mg IV (given at outside facility) followed by a dose of 1250 mg every 12 hours. Vancomycin level monitoring will be consid ered once steady state levels are achieved. Due to infection severity, the targ et goal will be a vancomycin trough of 10-20 mcg/mL. Pharmacy will continue to follow the patients culture results and clinical pr ogress daily. Nilda Duval PharmD documented in this encounter Miscellaneous Notes * Nursing Discharge - Doris Romeo RN - 06/30/2021 1:31 PM CDT Nursing Discharge Note Pt AOx4, VSS, neuro checks stable, unchanged. C/O moderate back pain, PRN oxycod one given, as well as scheduled medications. IV removed, AVS printed, gone over with pt, no questions for this RN. Meds to beds provided pt medication to room. Pt discharging home self care with family support. Discharging to private vehicl e via wheelchair with NA. Pt's family member at bedside with pt belongings. Patient/family satisfied with progress made towards goals and ready for discharg e. * Care Progression Final DC Note - Leon Sharma RN - 06/30/2021 11:08 AM CDT Final Discharge Note Final Discharge Disposition: 01-Home Self Care (with outpt Dalvance x 2 more dos es) Discharge goal and plan is mutually agreed upon by patient and care team. Patient will discharge to: home Transportation: Father Discharge Time: 1300 Special Instructions: The following medications provided via care progression DDF: levoFLOXacin 500 MG tablet Dose: 750 mg Take 1.5 tablets (750 mg total) by mouth daily. Quantity: 63 tablet Jun10 IV 90 Sunday 11:00 AM [facility] [address] [facility] [address] Sep IV 90 Sunday 11:00 AM [facility] [address] [place] [id number] Leon Sharma RN Documentation Supervisor [phone] (voalte) / [phone] (office) * Discharge Planning - Leon Sharma RN - 06/30/2021 8:57 AM CDT Discharge Planning Interventions General Discharge Note Anticipated discharge disposition: Home Self Care (with poss dalvance) Care Progression Plan: [facility] - may need Dalbavancin or [facility], pt uninsured Additional discharge planning information: Pt will receive first dose of Dalvance today inpt. Orders faxed and received to outpt infusion for 2nd and 3rd dose. Pt's outpt infusion appointments on AVS. PATH sw to f/u with pt to remind her of her upcoming appoints. Acaciace applic ation in chart and needs to be completed and signed by ID physician. 1201: Dalvance application faxed to ID office [phone] to be signed by Dr Tanika bess with request to fax back to this cc. 1329: This cc called ID's office [phone] and confirmed that the office has SOL ELIXIRSiv ed Hilariovance sanjay and it is on Dr Martinez's desk waiting to be signed. Will co nt to to f/u. 1406: Dalvance sanjay received via fax and emailed to Kaylie Welsh and MARY Sharma RN Documentation Supervisor [phone] (voalte) / [phone] (office) * End of Shift Note - Yari Fowler RN - 06/30/2021 7:48 AM CDT End of Shift Summary and Plan of Care A&Ox4. Back pain treated with scheduled meds and PRN oxycodone (x1). RA. Up GBW SBA. Abx administered. VSS. No acute events. Plan to d/c today. Goals/Plan for Shift Patient/Family stated goal for shift: pain management Nursing goal for shift: Pain management, stable neuro status/VS, allow for perio ds of rest, educate on dc planning Plan: PRN pain medications, frequent neuro checks/VS, cluster patient care, upda te pt on dc plan Goals/Plan for Hospital Stay Patient/Family stated goal for hospital stay: pain free Nursing goal for hospital stay: assist in relieving pt's pain Plan: administer meds, assist in scans, ID consult, NSG consults * End of Shift Note - Sis Newby RN - 06/29/2021 5:47 PM CDT End of Shift Summary and Plan of Care No changes. Pt A&Ox4. Pain managed with PRN oxy. Antibiotics administered. Minimal assist with ADLs. PT consult. CC assisting with dc planning. Goals/Plan for Shift Patient/Family stated goal for shift: pain management Nursing goal for shift: Pain management, stable neuro status/VS, allow for perio ds of rest, educate on dc planning Plan: PRN pain medications, frequent neuro checks/VS, cluster patient care, upda te pt on dc plan Goals/Plan for Hospital Stay Patient/Family stated goal for hospital stay: pain free Nursing goal for hospital stay: assist in relieving pt's pain Plan: administer meds, assist in scans, ID consult, NSG consults * Therapy Note - Lianne Richards, PT - 06/29/2021 4:34 PM CDT 06/29/21 1600 Visit Type Visit Type Evaluation PT Visit Info Initial PT Visit On 06/29/21 Assessed for Rehab Yes Past medical history reviewed through chart review: Yes Referral Reason back pain Ordering practitioner Ashley Lynne MD Comorbidities pertaining to therapy diagnosis Past Medical History: IV drug user Methamphetamine Tobacco abuse Patient/Family Reports Patient seated at edge of bed with RN present. Patient re ports that back pain was been present for 6 weeks. she states pain increases wit h trunk extension and sitting. Pain decreases with trunk flexion and rest PT Received On 06/29/21 PT Visit # 1 Time Calculation Stop Time 1600 Precautions Fall Risk Yes PPE Used Yellow precautions (Level 1 mask worn over level 3 mask, eye protection , and gloves) Home Living Type of Home Mobile Home Stairs to enter 2-3 steps;1 handrail Lives With Son;Daughter Bathroom Shower/Tub Tub/shower unit Bathroom Equipment Shower chair Home Assistive Device Straight cane Prior Function Level of [place] Modified independent with ADLs;Modified independent with f unctional transfers;Modified independent with ambulation;Modified independent wi th homemaking Receives Help From Family Vocational Unemployed Pain Assessment Pain Score 6 Pain Location Back Nurse Notified? Yes Cognition Overall Cognitive Status WFL Bed Mobility Bed Mobility Comments patient declined performing at this time Transfers Assistive Device Rolling walker Sit to Stand Transfers Stand by assistance Stand to Sit Transfers Stand by assistance Toilet transfer Modified independent Transfer Comments cue for hand placement Gait Gait Distance (Feet) 200 Assistive Device Rolling walker Gait Level Surface Assistance Modified independent Pattern Decreased hollie Stair Management Technique One rail R;Step to pattern Stair Management Assistance Stand by Gait Activity Gait Surface level surface Gait Activity room mobility;stair mobility;hallway mobility Posture Standing Posture flexed neck Sensation Light Touch Intact Additional Comments BUE klkedk-nj-ysyd coordination intact RUE Assessment RUE Assessment WFL LUE Assessment LUE Assessment WFL RLE Assessment RLE Assessment WFL LLE Assessment LLE Assessment WFL Patient Education Patient Education PT POC Response to education verbalizes understanding *ASSESSMENT Learning Barriers Pain Response to Treatment Good Assistance Needed Occasional verbal cues (10-25%) Problem List Activity tolerance;Balance;Bed mobility;Decreased gait speed;Gait;T ransfers;Safety;Stairs;Pain;Posture Clinical presentation Stable Timeframe Timeframe STG 2 visits Timeframe LTG 4 visits GOALS Goals Bed Mobility;Transfers;Gait distance;Stair/curb Bed Mobility Goals Bed Mobility STG Goal Status New goal Bed Mobility STG Modified independent Transfer Goals Transfer STG Goal Status New goal Transfer STG Modified independent;Stand pivot Transfer STG - Assistive Device Least restrictive device Gait Distance/Assist Goals Gait Distance STG Goal Status New goal Gait Distance STG (ft) 300 ft Gait Assist STG Modified independent Gait STG - Assistive Device Least restrictive device Stair/Curb Goals Stair/Curb LTG Goal Status New goal Stair/Curb LTG 2-3 steps;1 handrail;Modified independent *PLAN Pt/Family Goal back to normal PT Treatment Interventions Functional transfer training;LE strengthening/ROM;End urance training;Patient/family training;Equipment eval/education;Gait training;B ed mobility;Balance;Safety training;Modalities;Progressive Mobility PT Frequency 3-5x/wk PT Nursing Communication please assist patient with at least 3 walks/day Discharge Recommendations Plan Continued PT;Safe to DC home with family support Equipment Recommended Walker (patient plans to borrow RW from her dad) Equipment Recommend Purpose to reduce fall risk;to reduce pain Equipment Recommended Comment educated patient on how to fit walker to her heigh t Care Coordination Care Coordination hand-off to AALIYAH Richards, PT, DPT Physical Therapist * Discharge Planning - Leon Sharma RN - 06/29/2021 11:16 AM CDT Discharge Planning Interventions General Discharge Note Anticipated discharge disposition: Home Self Care (with poss dalvance) Care Progression Plan: HSC - may need Dal[facility]avancin [facility], pt uninsured Additional discharge planning information: Information sent for possible Dalvance at dc. Awaiting ID final rec's re: [facility]. Pt agreeable to Dalvance and states She would have transport back for any additional doses. If Dalvance is the plan pt would need an appt same day of dc with outpt infusion for first dose. Will cont to follow. 1227: Per MARY sexton pt could likely get 1st does while inpt. This cc was instructed to contact Phong Vargas Or Jose Sheehan. This cc sent email to both. Will try to locate a one number as well. Financial assist sanjay provided to pt for completion. Will c ont to follow. 1400: Financial assist sanjay completed by pt and sent to MARY sexton and [employer] associate . Primary team to write for inpatient Dalvance dose and ID to sign Dalvance sanjay lication as pt is uninsured. Leon Sharma RN Documentation Supervisor [phone] (voalte) / [phone] (office) * End of Shift Note - Yari Fowler RN - 06/29/2021 6:51 AM CDT End of Shift Summary and Plan of Care A&Ox4. Back pain treated with scheduled meds and PRN oxycodone (x1). RA. Up GBW SBA. Abx administered as ordered. VSS. No acute events. Goals/Plan for Shift Patient/Family stated goal for shift: pain management Nursing goal for shift: Pain management, stable neuro status/VS, allow for perio ds of rest Plan: PRN pain medications, frequent neuro checks/VS, cluster patient care Goals/Plan for Hospital Stay Patient/Family stated goal for hospital stay: pain free Nursing goal for hospital stay: assist in relieving pt's pain Plan: administer meds, assist in scans, ID consult, NSG consults * End of Shift Note - Sis Newby RN - 06/28/2021 5:51 PM CDT End of Shift Summary and Plan of Care No changes. Pt A&Ox4. PRN and scheduled medications administered for back pain. Pt reported legs hurting, encouraged ambulation and repositioning. Minimal assist with ADLs, pt showered with minimal assist. Ambulates SBA. Antibiotics continued. Goals/Plan for Shift Patient/Family stated goal for shift: pain management Nursing goal for shift: Pain management, stable neuro status/VS, allow for perio ds of rest, assist with daily cares Plan: PRN pain medications, frequent neuro checks/VS, cluster patient care, enco urage shower and daily cares Goals/Plan for Hospital Stay Patient/Family stated goal for hospital stay: pain free Nursing goal for hospital stay: assist in relieving pt's pain Plan: administer meds, assist in scans, ID consult, NSG consults * Care Progression Initial Assessment - Leon Sharma RN - 06/28/2021 11:09 AM CDT Care Progression Initial Assessment Discharge Plan Patients discharge goal: To be able to go home with her kids Care Progression Plan: HSC - may need Dalbavancin or [facility], pt uninsured Other Comments: This RNCC met with pt at the bedside, introduced self and reason for my visit. Pt agreeable to assessment. Demographics verified, PCP and Pharmacy added to EM R. Pt states she goes to [facility]) in [place] a nd obtains her meds through their pharmacy [facility]. In regards to DME pt has a cane and used an office chair to help her get around.. Pt has never had SNF, ARU, or HH. Pt lives with 11 and 8y/o children in a mobile home. Pt was semi i ndependent of ADL's prior to admission. Pt does not have an AD/DPOA and is not interested. Pt does not have Rx coverage and uses [facility] to [facility]. Family can transport at discharge. This cc discussed abx options with pt. Discuss possible dalbavancin. Pt she wo uld have a ride to make it back for additional doses as recommended by ID. Pt l sandra 2 hours away. Other option discussed was going to the [facility] for duration of needed IV abx therapy. Pt state going to the [facility] for weeks in not an option for her. Will cont to follow for ID's recommendatio ns. Patient Information Information Obtained: patient Primary Caregiver : Self Support Systems: Parents, Children, Other (Comment) (sister) Living Arrangements: Children Type of Residence: Private residence without support Current Home Health Services: No Transportation Transportation at Discharge: Family Transportation at Appointments: Self, Family Functional Capacity & DME Assistive Devices: Cane, Other (Comment) (had been using an office chair like a wheelchair lately) Respiratory Items: Current & Past Services Current Resources Available: Type of Rx Coverage: Other (gets meds from [facility] pharmacy) Financial/Income Information Financial Hardship: Verified that patients primary care physician is Placido Donaldson APRN and pardeep sharpe their medications from [address] [address] Leon Sharma RN Documentation Supervisor [phone] (voalte) / [phone] (office) * Assessment & Plan Note - Devante Swartz DO - 06/28/2021 7:39 AM CDT Associated Problem(s): Anemia of unknown etiology (Resolved 06/29/2021) Unclear cause, no signs and symptoms of bleeding: -check vitamin levels * Assessment & Plan Note - Ashley Lynne MD - 06/28/2021 7:38 AM CDT Associated Problem(s): IVDU (intravenous drug user) -UDS at outside hospital negative. -HIV and hepatitis testing negative. 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 -CRP presentation is 22, ER 90. -Blood cultures negative to date. -MRI of lumbar spine showed discitis and osteomyelitis of L5-S1. No epidural ab scess. -Status post IR guided aspiration. Cultures negative to date. -Continue vancomycin and cefepime. -Transthoracic echo normal. * End of Shift Note - Heidy Quinones RN - 06/28/2021 6:26 AM CDT End of Shift Summary and Plan of Care Patient A&O X4, VSS on RA. Pain treated with PRN pain medications. Antibiotics given per order. Patient used purewick per request. No acute events. Goals per Patient Condition Skin Integrity Plan Patient skin integrity maintained. See integumentary daquan wsheet for intervention documentation. Goals/Plan for Shift Patient/Family stated goal for shift: "Sleep as much as possible" Nursing goal for shift: Pain management, stable neuro status/VS, allow for perio ds of rest Plan: PRN pain medications, frequent neuro checks/VS, cluster patient care Goals/Plan for Hospital Stay Patient/Family stated goal for hospital stay: pain free Nursing goal for hospital stay: assist in relieving pt's pain Plan: administer meds, assist in scans, ID consult, NSG consults * End of Shift Note - Yuridia Chavez RN - 06/27/2021 5:03 PM CDT End of Shift Summary and Plan of Care Pt A&O x4. VSS. Pain being managed with PO pain meds. Up x1 with gb and walker. Tolerating a regular diet. No acute events throughout shift, will continue to assess/monitor pt. Goals per Patient Condition Skin Integrity Plan Patient skin integrity maintained. See integumentary daquan wsheet for intervention documentation. Goals/Plan for Shift Patient/Family stated goal for shift: pain management Nursing goal for shift: pain management, ensure pt safety, promote adequate rest , stable VS, communicate POC Plan: PRN pain meds & frequent reassessments, fall/safety precautions in place, clustering care, Q4h VS, discuss POC w/ pt Goals/Plan for Hospital Stay Patient/Family stated goal for hospital stay: pain free Nursing goal for hospital stay: assist in relieving pt's pain Plan: administer meds, assist in scans, ID consult, NSG consults * Assessment & Plan Note - Ashley Lynne MD - 06/27/2021 12:20 PM CDT Associated Problem(s): IVDU (intravenous drug user) -History of IV methamphetamine use, stopped 8 weeks ago when she from . 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 -Blood cultures negative to date. -MRI of lumbar spine showed discitis and osteomyelitis of L5-S1. No epidural ab scess. -Status post IR guided aspiration. Cultures pending. -Continue vancomycin and cefepime. -Transthoracic echo ordered. * End of Shift Note - Yari Fowler RN - 06/27/2021 8:00 AM CDT End of Shift Summary and Plan of Care A&Ox4. Pain treated with PRN oxycodone (x1). RA. Up x1 GBW to bathroom. VSS. No acute events. Goals per Patient Condition Skin Integrity Plan Patient skin integrity maintained. See integumentary daquan wsheet for intervention documentation. Goals/Plan for Shift Patient/Family stated goal for shift: pain management Nursing goal for shift: pain management, ensure pt safety, promote adequate rest , stable VS, communicate POC Plan: PRN pain meds & frequent reassessments, fall/safety precautions in place, clustering care, Q4h VS, discuss POC w/ pt Goals/Plan for Hospital Stay Patient/Family stated goal for hospital stay: pain free Nursing goal for hospital stay: assist in relieving pt's pain Plan: administer meds, assist in scans, ID consult, NSG consults * End of Shift Note - Mayda Martinez RN - 06/26/2021 6:50 PM CDT End of Shift Summary and Plan of Care VSS, RA. A & O x4. Nursing assessment stable. L-spine MRI completed today - one-time doses of IV Norflex & 0.5mg Ativan given prior to test. IV Norflex now scheduled Q 12 hrs. Pt states that her pain "flares up when I move", but is"much better today". Fall precautions in place. See MAR/flowsheets for further details. Goals per Patient Condition Skin Integrity Plan Patient skin integrity maintained. See integumentary daquan wsheet for intervention documentation. Goals/Plan for Shift Patient/Family stated goal for shift: pain management Nursing goal for shift: pain management, ensure pt safety, promote adequate rest , stable VS, communicate POC Plan: PRN pain meds & frequent reassessments, fall/safety precautions in place, clustering care, Q4h VS, discuss POC w/ pt Goals/Plan for Hospital Stay Patient/Family stated goal for hospital stay: pain free Nursing goal for hospital stay: assist in relieving pt's pain Plan: administer meds, assist in scans, ID consult, NSG consults * End of Shift Note - Alexsandra Oviedo RN - 06/26/2021 6:45 AM CDT End of Shift Summary and Plan of Care A&Ox4. N/T continues in the L leg. C/o 06/07 back pain that radiates to the L side- PRN fentanyl given x4 & oxycodone given x3. Per pt request, melatonin & xanax given x1. On tele- running NSR. RA. Continent to bowel & bladder. x1 BM this shift. Up to the bathroom w/ x1 assist GBW. Fluids running at 130ml/hr. VSS. No acute neuro changes or events overnight. Will continue to follow POC. Goals per Patient Condition Skin Integrity Plan Patient skin integrity maintained. See integumentary daquan wsheet for intervention documentation. Goals/Plan for Shift Patient/Family stated goal for shift: pain management Nursing goal for shift: pain management, ensure pt safety, promote adequate rest , stable VS, communicate POC Plan: PRN pain meds & frequent reassessments, fall/safety precautions in place, clustering care, Q4h VS, discuss POC w/ pt Goals/Plan for Hospital Stay Patient/Family stated goal for hospital stay: pain free Nursing goal for hospital stay: assist in relieving pt's pain Plan: administer meds, assist in scans, ID consult, NSG consults * Hospital Course - Devante Swartz DO - 06/25/2021 5:56 PM CDT 45 year old female with a past history of IV methamphetamine use ( last use abou t 2 months ago ) presented to outside hospital with increased back pain. She de scribed intermittent spasms, radiation of pain down her LLE. No loss of bowel a nd no urinary retention. She then had an outpatient MRI completed that was conc erning for spinal osteomyelitis. No lower extremity weakness, but trouble walki ng secondary to pain. NS, ID and IR consulted. S/p aspiration 06/25. Started empirically on vancomyci n and cefepime. No growth to date on culture. * Assessment & Plan Note - Bridgette Conde MD - 06/25/2021 6:55 AM CDT Associated Problem(s): Lumbar back pain with radiculopathy affecting left lower extremity (Resolved 06/27/2021) - pain control - see osteomyelitis of the spine * Assessment & Plan Note - Bridgette Conde MD - 06/25/2021 6:26 AM CDT Associated Problem(s): Tobacco abuse (Resolved 06/27/2021) Patient is a daily smoker, half pack per day with a 15-year pack history, unfort unately she is unwilling to quit at this time - encourage cessation * Assessment & Plan Note - Bridgette Conde MD - 06/25/2021 6:04 AM CDT Associated Problem(s): IVDU (intravenous drug user) History of IV methamphetamine use, stopped 8 weeks ago when she from [facility], UDS at outside hospital negative - HIV and hepatitis testing negative * Assessment & Plan Note - Bridgette Conde MD - 06/25/2021 6:03 AM CDT Associated Problem(s): Osteomyelitis of lumbar spine (HCC) Likely due to IV drug use ESR 90, CRP 24 - follow-up blood and joint aspirate cultures - continue cefepime & vancomycin - consult neurosurgery - consult infectious disease * End of Shift Note - Rios Vivar RN - 06/25/2021 5:11 AM CDT End of Shift Summary and Plan of Care Pt arrived to floor around 0230. A&Ox4. SEARS. Denies numbness and tingling. C/o back pain that radiates down L leg. Up x1 GB and walker to the bathroom. Continent. NS running at 130ml/hr. Pleasant and cooperative with cares. Goals per Patient Condition Skin Integrity Plan Patient skin integrity maintained. See integumentary daquan wsheet for intervention documentation. Goals/Plan for Shift Patient/Family stated goal for shift: pain control Nursing goal for shift: pain control, pt safety Plan: administer meds, fall precautions Goals/Plan for Hospital Stay Patient/Family stated goal for hospital stay: pain free Nursing goal for hospital stay: assist in relieving pt's pain Plan: administer meds, assist in scans, ID consult, NSG consults documented in this encounter Plan of Treatment Care Team Description Date Type Specialty Spencer Squires MD [address] [place] [address] [phone] 07/15/2021 Appointment Infusion Therapy Date/Time Name Type Priority Associated Diag noses 06/27/2021 9:44 AM CDT Consult to Interventional Imaging Routine Radiology IP Neuro 06/25/2021 6:02 PM CDT Culture, AFB Microbiology Routine 06/25/2021 6:02 PM CDT Culture, Fungus Microbiology Routine Order Schedule Name Type Priority Associated Diag noses One time imaging One time imaging for 1 Occurrences starting 06/25/2021 until 06/25/2021 Consult to Interventional Imaging Routine Radiology IP Neuro Once - Routine for 1 Occurrences startin g 06/25/2021 until 06/25/2021 Culture, Anaerobe Microbiology Routine Once - Routine for 1 Occurrences startin g 06/25/2021 until 06/25/2021 Culture, AFB Microbiology Routine Once - Routine for 1 Occurrences startin g 06/25/2021 until 06/25/2021 Culture, Fungus Microbiology Routine Once - Routine for 1 Occurrences startin g 06/25/2021 until 06/25/2021 Culture, Tissue with Gram Microbiology Routine Stain documented as of this encounter Procedures Comments Procedure Name Priority Date/Time Associated Diag nosis CBC AND DIFF (MANUAL DIFF Routine 06/30/2021 IF NECESSARY) 6:03 AM CDT BASIC METABOLIC PANEL Routine 06/30/2021 6:03 AM CDT IRON/TRANSFERRIN Add-On 06/28/2021 7:19 AM CDT FERRITIN Add-On 06/28/2021 7:19 AM CDT CBC AND DIFF (MANUAL DIFF Routine 06/28/2021 IF NECESSARY) 7:19 AM CDT BASIC METABOLIC PANEL Routine 06/28/2021 7:19 AM CDT B12/FOLATE Add-On 06/28/2021 7:19 AM CDT ECHO COMPLETE W DOPPLER Routine 06/27/2021 AND COLOR FLOW 1:11 PM CDT MRI LUMBAR SPINE W WO Routine 06/26/2021 CONTRAST 2:42 PM CDT VANCOMYCIN TROUGH Timed 06/26/2021 5:35 AM CDT CULTURE, WOUND WITH GRAM Routine 06/25/2021 STAIN (AEROBIC) 6:02 PM CDT CULTURE, FUNGUS Routine 06/25/2021 6:02 PM CDT CULTURE, ANAEROBE Routine 06/25/2021 6:02 PM CDT CULTURE, AFB Routine 06/25/2021 6:02 PM CDT IR DISC ASPIRATION Routine 06/25/2021 6:00 PM CDT CLOTTING SCREEN STAT 06/25/2021 10:55 AM CDT HIV AG/KHANH Add-On 06/25/2021 8:36 AM CDT COMPREHENSIVE METABOLIC STAT 06/25/2021 PANEL 8:36 AM CDT CBC AND DIFF (MANUAL DIFF STAT 06/25/2021 IF NECESSARY) 8:36 AM CDT ACUTE HEPATITIS PANEL Add-On 06/25/2021 8:36 AM CDT MRSA/MSSA NASAL PCR Routine 06/25/2021 3:20 AM CDT SARS-COV-2, SARA Routine 06/25/2021 (COVID-19) 3:20 AM CDT CULTURE, BLOOD Timed 06/25/2021 3:13 AM CDT CULTURE, BLOOD Timed 06/25/2021 3:02 AM CDT MAGNESIUM Add-On 06/25/2021 3:02 AM CDT ERYTHROCYTE SEDIMENTATION Add-On 06/25/2021 RATE 3:02 AM CDT C-REACTIVE PROTEIN Add-On 06/25/2021 3:02 AM CDT documented in this encounter Results * Basic Metabolic Panel (06/30/2021 6:03 AM CDT) Only the most recent of 2 results within the time period is included. Sodium 133 133 - 147 MEQ/L [facility] Potassium 4.5 3.5 - 5.3 MEQ/L [facility] Chloride 98 96 - 112 MEQ/L [facility] Carbon Dioxide 23 20 - 32 MEQ/L [facility] Anion Gap 13 5 - 17 [facility] Calcium 10.4 8.4 - 10.5 mg/dL [facility] Glucose 99 70 - 100 mg/dL [facility] Blood Urea 21 7 - 26 mg/dL [facility] Creatinine 0.5 0.4 - 1.1 mg/dL [facility] eGFR Female AA >130 60 - 200 [facility] mL/min/1.73sq [facility] eGFR Female >130 60 - 200 [facility] Non-AA mL/min/1.73sq [facility] Specimen Blood Performing Organization Address City/State/ZIP Code P edi Number [facility] [address] [place] [address] LABORATORIES [facility] [address] [place] [address] * CBC and Diff (manual diff if necessary) (06/30/2021 6:03 AM CDT) Only the most recent of 3 results within the time period is included. WBC 8.46 4.00 - 11.00 TH/uL [facility] RBC 4.03 4.00 - 5.00 MIL/uL [facility] Hemoglobin 11.2 (L) 12.0 - 15.0 g/dL [facility] Hematocrit 34 (L) 36 - 45 % [facility] MCV 84 80.0 - 99.0 fL [facility] MCH 28 27.0 - 34.0 pg [facility] MCHC 33 32 - 36 % [facility] RDW 14.2 11.5 - 14.5 % [facility] Platelet Count 475 (H) 140 - 400 TH/uL [facility] MPV 9.0 (L) 9.4 - 12.3 fL [facility] Nucleated RBCs 0 0 - 0 /100 [facility] % Neutrophils 60 45 - 78 % [facility] %Lymphocytes 26 15 - 47 % [facility] % Monocytes 10 0 - 12 % [facility] %Eosinophils 3 0 - 7 % [facility] %Basophils 1 0 - 2 % [facility] % Imm Grans 1 0 - 1 % [facility] # Granulocytes 5.12 1.70 - 6.80 TH/uL [facility] # Lymphocytes 2.22 1.00 - 3.30 TH/uL [facility] # Monocytes 0.80 0.20 - 0.90 TH/uL [facility] # Eosinophils 0.22 0.00 - 0.40 TH/uL [facility] # Basophils 0.10 0.00 - 0.10 TH/uL [facility] Specimen Blood Performing Organization Address City/State/ZIP Code P edi Number [facility] [address] [place] [id number] LABORATORIES [facility] [address] [place] [address] * Ferritin (06/28/2021 7:19 AM CDT) Ferritin 118 20.0 - 200.0 ng/mL [facility] Specimen Blood Performing Organization Address City/State/ZIP Code P edi Number [facility] [address] [place] [address] LABORATORIES [facility] [address] [place] [address] * Iron/Transferrin (06/28/2021 7:19 AM CDT) Iron 28 (L) 50 - 180 ug/dL [facility] Transferrin 262 206 - 381 mg/dL [facility] Total 314 204 - 408 ug/dL [facility] Iron-Binding [facility] Capacity Iron/Transferri 9 (L) 15 - 50 % [facility] n % Saturation [facility] Specimen Blood Performing Organization Address City/[facility]/ZIP Code P edi Number [facility] [address] [place] [address] LABORATORIES [facility] [address] [place] [address] * B12/Folate (06/28/2021 7:19 AM CDT) VITAMIN B12 281 239 - 931 pg/mL [facility] Folate 4.3 3.4 - 20.0 ng/mL [facility] Specimen Blood Performing Organization Address City/State/ZIP Code P edi Number [address] [address] LABORATORIES [facility] [address] [place] [address] * Echo Complete with Doppler and Color Flow (06/27/2021 1:11 PM CDT) Ejection 60 % PROSOLV Fraction Specimen Impressions Performed At 1. Normal LV and RV size and systolic function. LVEF estimated at 60%. PROSOLV 2. Normal diastolic function. 3. No significant valvular abnormal ities. 4. No obvious valvular vegetations. If high clinical suspicion for endocarditis, consider MACIE. Ruperto Hawley M.D. (Electronically Signed) Final Date: 27 June 2021 14:18 Narrative Performed At [facility] ECHOCARDIOGRAM REPORT [facility] Name: JILL MARQUEZ Date: 06/27/2021 12:49 Chart #: [id number] : 1975 Location: [facility] Sono: trheingans Age: 45 Gender: F Referring: ASHLEY LYNNE Room # : N203 Fellow: Indication:concern for encodarditis Procedure: ECHO COMPLETE W DOPPLER AN D COLOR FLOW BP: 120 / 76 HR: 87 Ht: 68 Wt: 174 BSA 1.9 : 2D ECHO MEASUREMENTS LV Diastolic Diameter Bas 4.1 cm LVPW Diastolic Thickness 0.9 cm LV Systolic Diameter Base 2.8 cm Aorta at Sinuses Diameter 2.9 cm LA Systolic Diameter LX 2.7 cm Ascending Aorta Diameter 2.9 cm IVS Diastolic Thickness 0.9 cm AORTIC VALVE DOPPLER AV Peak Velocity 125 cm/ s LVOT AV Jonatan Ratio 0.67 AV Peak Gradient 6.3 mmH g MITRAL VALVE DOPPLER Mitral E Point Velocity 66.4 cm/s Mitral E to A Ratio 1 Mitral A Point Velocity 63.8 cm/s MV Deceleration Time 190 ms TRICUSPID VALVE DOPPLER RV Systolic Pressure 13.2 mmHg WALL SEGMENT ANALYSIS: ROUTINE LVSI : 1 %FM : 100 LAD : 1 LCX : 1 RCA : 1 FINDINGS LV Ejection Fraction: 60 Normal left ventricular systolic func tion, with an estimated ejection fraction of 60%. Normal wall thickness. Normal wall motion. Normal left ventricular dimensions. Normal right ventricular size and sys tolic function. Normal right and left atrial size. Normal diastolic function. Normal aortic valve without regurgita tion. Normal mitral valve with trivial regu rgitation. Normal pulmonic valve with trivial re gurgitation. Normal tricuspid valve with trivial r egurgitation. Estimated PA pressure = 13 mmHg. No pericardial effusion. IVC is responsive to inspiration lauren cating normal RA pressure. Normal dimensions of the ascending ao rta. No intracardiac masses or thrombi. Procedure Note Interface, External Ris In - 06/27/2021 2:18 PM CDT ECHOCARDIOGRAM REPORT [facility] Name: JILL MARQUEZ Date: 06/27/2021 12:49 Chart #: [id number] : 1975 Location: [facility] Sono: willie Age: 45 Gender: F Referring: ASHLEY LYNNE Room #: N203 Fellow: Indication:concern for encodarditis Procedure: ECHO COMPLETE W DOPPLER AND COLOR FLOW BP: 120 / 76 HR: 87 Ht: 68 Wt: 174 BSA 1.9 : 2D ECHO MEASUREMENTS LV Diastolic Diameter Bas 4.1 cm LVPW Diastolic Thickness 0.9 cm LV Systolic Diameter Base 2.8 cm Aorta at Sinuses Diameter 2.9 cm LA Systolic Diameter LX 2.7 cm Ascending Aorta Diameter 2.9 cm IVS Diastolic Thickness 0.9 cm AORTIC VALVE DOPPLER AV Peak Velocity 125 cm/s LVOT AV Jonatan Ratio 0.67 AV Peak Gradient 6.3 mmHg MITRAL VALVE DOPPLER Mitral E Point Velocity 66.4 cm/s Mitral E to A Ratio 1 Mitral A Point Velocity 63.8 cm/s MV Deceleration Time 190 ms TRICUSPID VALVE DOPPLER RV Systolic Pressure 13.2 mmHg WALL SEGMENT ANALYSIS: ROUTINE LVSI : 1 %FM : 100 LAD : 1 LCX : 1 RCA : 1 FINDINGS LV Ejection Fraction: 60 Normal left ventricular systolic function, with an estimated ejection fraction of 60%. Normal wall thickness. Normal wall motion. Normal left ventricular dimensions. Normal right ventricular size and systolic function. Normal right and left atrial size. Normal diastolic function. Normal aortic valve without regurgitation. Normal mitral valve with trivial regurgitation. Normal pulmonic valve with trivial regurgitation. Normal tricuspid valve with trivial regurgitation. Estimated PA pressure = 13 mmHg. No pericardial effusion. IVC is responsive to inspiration indicating normal RA pressure. Normal dimensions of the ascending aorta. No intracardiac masses or thrombi. IMPRESSION 1. Normal LV and RV size and systolic function. LVEF estimated at 60%. 2. Normal diastolic function. 3. No significant valvular abnormalities. 4. No obvious valvular vegetations. If high clinical suspicion for endocarditis, consider MACIE. Ruperto Hawley M.D. (Electronically Signed) Final Date: 27 June 2021 14:18 Performing Organization Address City/State/ZIP Code P edi Number PROSOLV * MRI Lumbar Spine w wo contrast (06/26/2021 2:42 PM CDT) Specimen Impressions Performed At Acute discitis osteomyelitis at L5-S1 with prominent enhancing epidural MICHAELA phlegmon resulting in left lateral rece ss effacement and mild spinal canal narrowing at L5-S1. No epidural a bscess. Peripherally enhancing fluid in the L5-S1 disc extends into th e prevertebral soft tissues with a tiny prevertebral abscess at L5-S1. ATTESTATION STATEMENT: The Staff Radiol ogist has personally reviewed the images and dictated, reviewed, or edite d the final report. READING SITE: [facility] Narrative Performed At Patient: JILL MARQUEZ Sex#: F #: [id number] Sage# : [id number] Location: [place] [address] Accession# : [id number] Ordering Provider: DAVID NEIL Procedure Requested: [id number] MRI LUMB AR SPINE W WO CONTRAST Reason for Exam: L5 S1 discitis, oste omyelitis ? epidural abscess Exam Ordered: 06/25/2021 09 29 Begin exam date/time: 06/26/2021 141 0 Exam Date/Time: 06/26/2021 144 2 MRI LUMBAR SPINE W WO CONTRAST Date: 06/26/2021 2:51 PM Indication: L5 S1 discitis, osteomyel itis. Concern for epidural abscess Comparison: Outside lumbar spine MRI 06/24/2021. Technique: Multi-planar multi-weighted magnetic resonance imaging of the lumbar spine was performed with and wit hout intravenous contrast using the standard lumbar spine protocol. 15 cc Multihance contrast was administered intravenously during the e xamination. FINDINGS: Redemonstration of marked bone marrow e darius and enhancement with enhancing fluid the setting of the L5-S 1 disc space compatible with osteomyelitis discitis. Prominent epidu ral enhancing phlegmon causing mild spinal canal stenosis and extensio n to the left lateral recess which abuts the exiting left S1 nerve r oot. No epidural abscess. Peripherally enhancing fluid in the L5- S1 disc extends into the prevertebral soft tissues with a 1.7 x 0.6 cm prevertebral abscess at L5-S1 (image 41, series 10). Prominent L3 vertebral body hemangioma. Additional T2 hyperintense and T1 mildly hyperintense involving T12 an d L4 demonstrating enhancement likely representing atypical hemangioma s. Straightening of the lumbar lordosis. N o acute fracture. The conus terminates at a normal level. No abnormal signal is seen within the visualized distal spinal cor d. No clumping of intrathecal nerve roots. No soft tissue abnormality in the visua lized abdomen or pelvis. Procedure Note Interface, Rad Results In - 06/26/2021 3:29 PM CDT Patient: JILL MARQUEZ Sex#: F #: [id number] Sage#: [id number] Location: [address] N203-01 Ordering Provider: DAVID NEIL Procedure Requested: [id number] MRI LUMBAR SPINE W WO CONTRAST Reason for Exam: L5 S1 discitis, osteomyelitis ? epidural abscess Exam Ordered: 06/25/2021 0929 Begin exam date/time: 06/26/2021 1410 Exam Date/Time: 06/26/2021 1442 MRI LUMBAR SPINE W WO CONTRAST Date: 06/26/2021 2:51 PM Indication: L5 S1 discitis, osteomyelitis. Concern for epidural abscess Comparison: Outside lumbar spine MRI 06/24/2021. Technique: Multi-planar multi-weighted magnetic resonance imaging of the lumbar spine was performed with and without intravenous contrast using the standard lumbar spine protocol. 15 cc Multihance contrast was administered intravenously during the examination. FINDINGS: Redemonstration of marked bone marrow edema and enhancement with enhancing fluid the setting of the L5-S1 disc space compatible with osteomyelitis discitis. Prominent epidural enhancing phlegmon causing mild spinal canal stenosis and extension to the left lateral recess which abuts the exiting left S1 nerve root. No epidural abscess. Peripherally enhancing fluid in the L5-S1 disc extends into the prevertebral soft tissues with a 1.7 x 0.6 cm prevertebral abscess at L5-S1 (image 41, series 10). Prominent L3 vertebral body hemangioma. Additional T2 hyperintense and T1 mildly hyperintense involving T12 and L4 demonstrating enhancement likely representing atypical hemangiomas. Straightening of the lumbar lordosis. No acute fracture. The conus terminates at a normal level. No abnormal signal is seen within the visualized distal spinal cord. No clumping of intrathecal nerve roots. No soft tissue abnormality in the visualized abdomen or pelvis. IMPRESSION Acute discitis osteomyelitis at L5-S1 with prominent enhancing epidural phlegmon resulting in left lateral recess effacement and mild spinal canal narrowing at L5-S1. No epidural abscess. Peripherally enhancing fluid in the L5-S1 disc extends into the prevertebral soft tissues with a tiny prevertebral abscess at L5-S1. ATTESTATION STATEMENT: The Staff Radiologist has personally reviewed the images and dictated, reviewed, or edited the final report. READING SITE: [facility] Performing Organization Address City/State/ZIP Code P edi Number MICHAELA * Vancomycin Trough (06/26/2021 5:35 AM CDT) Vancomycin 11 10 - 20 ug/mL [facility] Specimen Blood Performing Organization Address City/State/ZIP Code P edi Number [address] [address] LABORATORIES [facility] [address] [place] [address] * Culture, Wound with Gram Stain (Aerobic) (06/25/2021 6:02 PM CDT) Gram Stain Rare Polymorphonuclear [facility] Gram Stain No squamous epithelial cells [facility] Gram Stain No organisms seen [facility] Culture Result No growth at 3 days [facility] Specimen DISC ASPIRATE Performing Organization Address City/[facility] Code P edi Number [facility] [address] [place] [address] LABORATORIES [facility] [address] [place] [address] * Culture, Anaerobe (06/25/2021 6:02 PM CDT) Culture Result No anaerobes isolated at 5 [facility] Specimen Disc Performing Organization Address City/[facility]/ZIP Code P edi Number [facility] [address] [place] [address] LABORATORIES [facility] [address] [place] [address] * IR Disc aspiration (06/25/2021 6:00 PM CDT) Specimen Impressions Performed At Successful disc aspiration at L5-S1. Specimen was sen t to the lab for MICHAELA gram stain and culture. ATTESTATION STATEMENT: The attending [facility] radiologist has personally reviewed the images and dictated, revie wed, or edited the final report. READING SITE: [facility] Narrative Performed At Patient: JILL MARQUEZ Sex#: Suad #: [id number] Sage# : [id number] Location: [address] N203-01 Accession# : [id number] Ordering Provider: DAVID NEIL Procedure Requested: [id number] IR DISC ASPIRATION Reason for Exam: L5 S1 discitis/OM Exam Ordered: 06/25/2021 09 43 Begin exam date/time: 06/25/2021 174 7 Exam Date/Time: 06/25/2021 180 0 EXAM: IR DISC ASPIRATION (Fluoroscopica lly guided L5-S1 disc aspiration) DATE: 06/25/2021 INDICATION: L5 S1 discitis/OM COMPARISON: Outside MRI lumbar spine. PHYSICIANS: Dr. Lincoln Lomax (attendi ng), Dr. Rohan Moura (neurointerventional radiology fellow) FLUORO TIME: 1.7 minutes RADIATION EXPOSURE: Air Kerma (Ka,r) 13 7.4 mGy CONSENT: The nature of the procedure as well as its risks, benefits, and alternatives were discussed with the pa tient by Dr. Lomax. Risks specifically discussed included pain, b leeding, infection, and potential nerve damage. The patient questions w ere answered, and both verbal and written consent was given to proceed. ATTENDING PHYSICIAN STATEMENT: Dr. Diony Lomax, the attending neurointerventionalist, was present for the entire procedure. PROCEDURE AND FINDINGS: A "time out" procedure was performed ve rifying the patient's identity and procedure to be performed. Conscious sedation was initiated with 5 0 mcg intravenous fentanyl and 1.0 mg intravenous Versed for 18 minute s during continuous cardiorespiratory monitoring. IV medica tions listed above were administered under the attending's orde r. Appropriate physiologic monitoring, including that of the patie nt's O2 sats, was performed throughout the entire procedure. These vital signs were additionally monitored by a nurse trained in conscio us sedation. Total physician to patient [id number] conscious sedation time is listed above. The L5-S1 level was localized with fluo roscopy. The skin overlying this level was then sterilely prepped, drape d, and infiltrated with 1% lidocaine for local anesthesia. Under f maddieroscopic guidance, a 18 gauge 15 cm needle was inserted into the inte rvertebral disc at this level using a posterolateral approach. Positi on was confirmed with AP and lateral images. The inner stylet was removed and disc a spiration and biopsy was performed. There was satisfactory blood y aspirate obtained during the aspiration in the needle was removed. M anual pressure was held for several minutes. There was no bleeding. There were no immediate complications. The patient was transported to the hospital floor in stable condition. Procedure Note Interface, Rad Results In - 06/28/2021 4:58 PM CDT Patient: JILL MARQUEZ Sex#: F #: [id number] Sage#: [id number] Location: [address] N203-01 Ordering Provider: DAVID NEIL Procedure Requested: [id number] IR DISC ASPIRATION Reason for Exam: L5 S1 discitis/OM Exam Ordered: 06/25/2021 0943 Begin exam date/time: 06/25/2021 1747 Exam Date/Time: 06/25/2021 1800 EXAM: IR DISC ASPIRATION (Fluoroscopically guided L5-S1 disc aspiration) DATE: 06/25/2021 INDICATION: L5 S1 discitis/OM COMPARISON: Outside MRI lumbar spine. PHYSICIANS: Dr. Lincoln Lomax (attending), Dr. Rohan Moura (neurointerventional radiology fellow) FLUORO TIME: 1.7 minutes RADIATION EXPOSURE: Air Kerma (Ka,r) 137.4 mGy CONSENT: The nature of the procedure as well as its risks, benefits, and alternatives were discussed with the patient by Dr. Lomax. Risks specifically discussed included pain, bleeding, infection, and potential nerve damage. The patient questions were answered, and both verbal and written consent was given to proceed. ATTENDING PHYSICIAN STATEMENT: Dr. Lincoln Lomax, the attending neurointerventionalist, was present for the entire procedure. PROCEDURE AND FINDINGS: A "time out" procedure was performed verifying the patient's identity and procedure to be performed. Conscious sedation was initiated with 50 mcg intravenous fentanyl and 1.0 mg intravenous Versed for 18 minutes during continuous cardiorespiratory monitoring. IV medications listed above were administered under the attending's order. Appropriate physiologic monitoring, including that of the patient's O2 sats, was performed throughout the entire procedure. These vital signs were additionally monitored by a nurse trained in conscious sedation. Total physician to patient [id number] conscious sedation time is listed above. The L5-S1 level was localized with fluoroscopy. The skin overlying this level was then sterilely prepped, draped, and infiltrated with 1% lidocaine for local anesthesia. Under fluoroscopic guidance, a 18 gauge 15 cm needle was inserted into the inter vertebral disc at this level using a posterolateral approach. Position was confirmed with AP and lateral images. The inner stylet was removed and disc aspiration and biopsy was performed. There was satisfactory bloody aspirate obtained during the aspiration in the needle was removed. Manual pressure was held for several minutes. There was no bleeding. There were no immediate complications. The patient was transported to the hospital floor in stable condition. IMPRESSION Successful disc aspiration at L5-S1. Specimen was sent to the lab for gram stain and culture. ATTESTATION STATEMENT: The attending staff radiologist has personally reviewed the images and dictated, reviewed, or edited the final report. READING SITE: [facility] Performing Organization Address [facility] P edi Number KESSON * Clotting Screen (06/25/2021 10:55 AM CDT) Protime 13.6 11.4 - 15.0 sec [facility] INR 1.1 0.8 - 1.2 [facility] APTT 30 22 - 34 sec [facility] Specimen Blood Performing Organization Address [facility] P edi Number [facility] [address] [place] [address] LABORATORIES [facility] [address] [place] [address] * Acute Hepatitis Panel (06/25/2021 8:36 AM CDT) Hepatitis B Non-reactive Non-reactive [facility] Core Ab IgM Hospital Lab Hepatitis B Non-reactive Non-reactive [facility] Surface Ag Hospital Lab Hepatitis C Ab Non-reactive Non-reactive [facility] Hepatitis A Ab Non-reactive Non-reactive [facility] Lab Specimen Blood Performing Organization Address [facility] P edi Number [facility] [address] [place] [address] LABORATORIES [facility] [address] [place] [address] * HIV AG/KHANH (06/25/2021 8:36 AM CDT) Pathologist [facility] HIV AG/KHANH Non-reactive Non-reactive [facility] Specimen Blood Performing Organization Address City/[facility]/ZIP Code P edi Number [facility] [address] [place] [address] LABORATORIES [facility] [address] [place] [address] * Comprehensive Metabolic Panel (06/25/2021 8:36 AM CDT) Pathologist [facility] Sodium 143 133 - 147 MEQ/L [facility] Potassium 3.8 3.5 - 5.3 MEQ/L [facility] Chloride 109 96 - 112 MEQ/L [facility] Carbon Dioxide 23 20 - 32 MEQ/L [facility] Anion Gap 11 5 - 17 [facility] Calcium 8.9 8.4 - 10.5 mg/dL [facility] Glucose 81 70 - 100 mg/dL [facility] Protein Total 6.2 6.0 - 8.2 g/dL [facility] Lab Albumin 3.1 (L) 3.5 - 5.0 g/dL [facility] Alkaline 93 42 - 140 IU/L [facility] Alanine 13 0 - 34 IU/L [facility] Lab e Aspartate 13 (L) 15 - 46 IU/L [facility] Lab e Bilirubin Total 0.2 0.2 - 1.3 mg/dL [facility] Blood Urea 15 7 - 26 mg/dL [facility] Creatinine 0.5 0.4 - 1.1 mg/dL [facility] eGFR Female AA >130 60 - 200 [facility] mL/min/1.73sq [facility] Lab eGFR Female >130 60 - 200 [facility] Non-AA mL/min/1.73sq m Hospital Lab Specimen Blood Performing Organization Address City/[facility]/ZIP Code P edi Number [facility] [address] [place] [address] LABORATORIES [facility] [address] [place] [address] * MRSA Nasal PCR (06/25/2021 3:20 AM CDT) Pathologist [facility] MRSA PCR Not Detected Not Detected [facility] Source NPSWAB [facility] Specimen NASOPHARYNGEAL SWAB Performing Organization Address City/[facility]/ZIP Code P edi Number [facility] [address] [place] [address] LABORATORIES [facility] [address] [place] [address] * SARS-COV-2, SARA (COVID-19) (06/25/2021 3:20 AM CDT) Pathologist [facility] SARS-CoV-2 PCR NegativeComment: This RT-PCR Negative [facility]'s test has been authorized by Hospital Lab the FDA under an Emergency Use Authorization (EUA) for use by authorized laboratories. Specimen NASOPHARYNGEAL SWAB Performing Organization Address [facility] Code P edi Number [facility] [address] [place] [address] LABORATORIES [facility] [address] [place] [address] * Culture, Blood (06/25/2021 3:13 AM CDT) Only the most recent of 2 results within the time period is included. [facility] Culture Result No Growth at 5 days [facility] Specimen Blood Narrative Performed At LEFT AC 10ML [facility] LABORATORIES Performing Organization Address City/[facility]/ZIP Code P edi Number [facility] [address] [place] [address] LABORATORIES [facility] [address] [place] [address] * C-Reactive Protein (06/25/2021 3:02 AM CDT) [facility] C Reactive 24.1 (H)Comment: Infection or 0.0 - 10.0 mg/L [facility] Protein Inflammation >10.0 mg/L Hospital Lab Specimen Blood Performing Organization Address City/[facility]/ZIP Code P edi Number [facility] [address] [place] [address] LABORATORIES [facility] [address] [place] [address] * Erythrocyte Sedimentation Rate (06/25/2021 3:02 AM CDT) Sed Rate 90 (H) 0 - 17 mm/h [facility] Specimen Blood Performing Organization Address City/[facility] Code P edi Number [facility] [address] [place] [address] LABORATORIES [facility] [address] [place] [address] * Magnesium (06/25/2021 3:02 AM CDT) Magnesium 1.3 (L) 1.4 - 2.7 mg/dL [facility] Specimen Blood Performing Organization Address City/[facility] Code P edi Number [facility] [address] [place] [address] LABORATORIES [facility] [address] [place] [address] documented in this encounter Visit Diagnoses Diagnosis Osteomyelitis of lumbar spine (HCC) - P rimary IVDU (intravenous drug user) Other, mixed, or unspecified nondepende nt drug abuse, unspecified Tobacco abuse Tobacco use disorder Lumbar back pain with radiculopathy aff ecting left lower extremity documented in this encounter Administered Medications Action Date Dose Rate Site Medication Order MAR Action acetaminophen (TYLENOL) suppository 325-650 mg 325-650 mg, Rectal, Every 6 hours PRN, mild pain (pain score 1-3), fever, Starting on 06/25/21 at 0233, Administer if patient unable to tolerat e oral medications. 06/29/2021 8:08 PM CDT 650 mg acetaminophen (TYLENOL) tablet 325-650 Given mg 325-650 mg, Oral, Every 6 hours PRN, mild pain (pain score 1-3), fever, Starting on 06/25/21 at 0233, Do not exceed 4 GM/DAY of acetaminophen. If 6 5 or older do not exceed 3 GM/DAY. If chronic alcoholic do not exceed 2 GM/DAY. 650 mg Given 06/28/2021 12:17 AM CDT 650 mg Given 06/26/2021 6:53 PM CDT 06/29/2021 8:09 PM CDT 0.25 mg ALPRAZolam (XANAX) tablet 0.25 mg Given 0.25 mg, Oral, Every 6 hours PRN, anxiety, Starting on 06/25/21 at 0233, Hold if patient drowsy. Do not give to patients with confusion or dementia. 0.25 mg Given 06/28/2021 8:30 PM CDT 0.25 mg Given 06/26/2021 9:50 PM CDT aluminum-magnesium hydroxide-simethicon e (MAALOX PLUS) 400-400-40 mg/5 mL suspension 15 mL 15 mL, Oral, Every 4 hours PRN, indigestion, Starting on 06/25/21 at 0233, Avoid if estimated glomerular filtration rate (eGFR) is less than 20 mL/minute/1.73m2. benzocaine-menthoL (CEPACOL) lozenge 1 lozenge 1 lozenge, Buccal, Every 1 hour prn, sore throat, Starting on 06/25/21 at 0233 bisacodyL (DULCOLAX) suppository 10 mg 10 mg, Rectal, Daily PRN, constipation, constipation in patients who are NPO, i n patients who have nausea, or in patient s where there is any concern about ileus or bowel obstruction., Starting on 06/25/21 at 0233, Hold these medications if patient has had loose stool or diarrhea within previous 24 hours. 06/30/2021 8:40 AM CDT 2 g cefepime (MAXIPIME) injection 2 g Given 2 g, Intravenous, Every 8 hours scheduled, Indications: OSTEOMYELITIS, First dose on 06/25/21 at 0445, If giving IV push, reconstitute each vial with 20 ml sterile water and give over 3-5 minutes If sterile water is unavailable, may use Bacteriostatic Water or Normal Saline for reconstitution 2 g Given 06/30/2021 12:58 AM CDT 2 g Given 06/29/2021 5:12 PM CDT 06/30/2021 8:53 AM CDT 1,500 mg 650 mL/hr dalbavancin 1,500 mg in dextrose (D5W) 5 New Bag % 250 mL IVPB 1,500 mg, Intravenous, Administer over 30 Minutes, Once, On Valentine 06/30/21 at 0900 , For 1 dose, REFRIGERATE Infuse over 30 minutes. If a common IV line is bein g used to administer other drugs in addition to dalbavancin, the line shoul d be flushed before and after infusion with D5W. docusate sodium (COLACE) capsule 100 mg 100 mg, Oral, 2 times daily PRN, stool softening, Starting on 06/25/21 at 0233, Swallow capsule whole 06/30/2021 8:40 AM CDT 40 mg Left Arm enoxaparin (LOVENOX) syringe 40 mg Given 40 mg, Subcutaneous, Every 24 hours scheduled, First dose on Sun06/28/21 at 1300, OK for pharmacy to dose medicatio n based on renal function, age, weight, and indication. 40 mg Left Arm Given 06/29/2021 8:13 AM CDT 40 mg Right Arm Given 06/28/2021 1:23 PM CDT 06/28/2021 10:44 AM CDT 25 mcg fentaNYL (SUBLIMAZE) injection 12.5-25 Given mcg 12.5-25 mcg, Intravenous, Every 2 hours PRN, severe pain (pain score 7-10), Starting on 06/25/21 at 0811, Administer over 2 minutes; max dose for IVP is 2 mcg/kg. Note: Limit does not apply to patients who may be tolerant t o opioid therapy or on continuous IV or P O opiate therapy. 12.5 mcg Given 06/27/2021 7:54 PM CDT 25 mcg Given 06/26/2021 5:23 AM CDT 06/25/2021 5:56 PM CDT 50 mcg fentaNYL (SUBLIMAZE) injection Given Intravenous, Code/trauma/sedation medication, Starting on 06/25/21 at 1746 50 mcg Given 06/25/2021 5:46 PM CDT 06/26/2021 2:51 PM CDT 15 mL gadobenate dimeglumine (MULTIHANCE) 529 Given mg/mL (0.1mmol/0.2mL) injection 15 mL 15 mL, Intravenous, Once in imaging, contrast, Starting on 06/26/21 at 1450, For 1 dose guaiFENesin (ROBITUSSIN) 100 mg/5 mL syrup 200 mg 200 mg, Oral, Every 4 hours PRN, cough, Starting on 06/25/21 at 0233 06/30/2021 8:39 AM CDT 1 capsule lactobacillus (CULTURELLE) 10 billion Given cell capsule 1 capsule, Oral, 2 times daily, First dose on 06/25/21 at 1000, Capsule ma y be opened 1 capsule Given 06/29/2021 8:08 PM CDT 1 capsule Given 06/29/2021 8:13 AM CDT 06/25/2021 5:52 PM CDT 10 mL Back lidocaine (pf) (XYLOCAINE-MPF) 10 mg/mL Given (1 %) injection Code/trauma/sedation medication, Starting on 06/25/21 at 1752 06/26/2021 1:57 PM CDT 0.5 mg LORazepam (ATIVAN) injection 0.5 mg Given 0.5 mg, Intravenous, Once, On 06/26/21 at 1400, For 1 dose, advanced manufacturing vice president to MRI Maximum IV push rate of 2 mg/min; max IVP dose is 4 mg. magnesium sulfate IVPB 2 gram (premix) 2 g, Intravenous, at 25 mL/hr, As needed, standard electrolyte replacement, Starting on 06/25/21 at 0233, Replace in addition to any scheduled magnesium doses. Administer 2 grams over 2 hours for magnesium level less than or equal to 1.4 mg/dL. Repeat magnesium level in AM. Administer only if serum creatinine is less than 2 within the previous 48 hours and sustained urine output is greater than 20 mL/hr for 6 hours (if able to monitor). 06/25/2021 8:08 PM CDT 3 mg melatonin tablet 3 mg Given 3 mg, Oral, Nightly PRN, sleep, Startin g on 06/25/21 at 0233, Give 3-4 hours prior to planned bedtime. 06/29/2021 8:08 PM CDT 6 mg melatonin tablet 6 mg Given 6 mg, Oral, Nightly, First dose (after last modification) on 06/26/21 at 2100, Give 3-4 hours prior to planned bedtime. 6 mg Given 06/28/2021 8:31 PM CDT 6 mg Given 06/27/2021 9:00 PM CDT 06/26/2021 9:35 AM CDT 750 mg methocarbamoL (ROBAXIN) tablet 750 mg Given 750 mg, Oral, 3 times daily PRN, muscle spasms, Indications: muscle spasm, Starting on 06/25/21 at 1008 750 mg Given 06/26/2021 1:22 AM CDT 750 mg Given 06/25/2021 3:52 PM CDT miconazole nitrate (ALOE VESTA) 2 % ointment Topical, 3 times daily PRN, perineal or skin fold redness, Starting on 06/25/21 at 0233, Consult wound care if no improvement within 3 days. 06/25/2021 5:44 PM CDT 1 mg midazolam (PF) (VERSED) injection Given Intravenous, Code/trauma/sedation medication, Starting on 06/25/21 at 1744 nitroglycerin (NITROSTAT) SL tablet 0.4 mg 0.4 mg, Sublingual, Every 5 min PRN, chest pain, Starting on 06/25/21 at 0233, For 3 doses, May repeat every 5 minutes for a total of 3 doses. Check B P prior to each dose. Discontinue use for SBP less than 90 mmHg. Notify physicia n if given. DO NOT CRUSH OR CHEW. ondansetron (ZOFRAN) injection 4 mg 4 mg, Intravenous, Every 6 hours PRN, nausea/vomiting (2nd line), Starting on 06/25/21 at 0233 06/30/2021 8:39 AM CDT 60 mg orphenadrine (NORFLEX) injection 60 mg Given 60 mg, Intravenous, Every 12 hours scheduled, First dose on 06/26/21 at 1345 60 mg Given 06/29/2021 8:07 PM CDT 60 mg Given 06/29/2021 8:13 AM CDT 06/30/2021 11:43 AM CDT 5 mg oxyCODONE (ROXICODONE) immediate release Given tablet 5 mg 5 mg, Oral, Every 4 hours PRN, moderate pain (pain score 4-6), Starting on 06/25/21 at 0811 5 mg Given 06/30/2021 6:11 AM CDT 5 mg Given 06/29/2021 5:12 PM CDT polyethylene glycol (GLYCOLAX) packet 1 7 g 17 g, Oral, Daily PRN, constipation, constipation, Starting on Sun06/25/21 a t 0233, Mix in 4-8 ounces of liquid. Hold these medications if patient has had loose stool or diarrhea within previous 24 hours. potassium bicarb-citric acid (EFFER-K) effervescent tablet 20 mEq 20 mEq, Oral, As needed, standard electrolyte replacement, Starting on 06/25/21 at 0233, Administer if unable t o swallow potassium tablets. Replace in addition to any scheduled potassium doses. Administer 20 mEq every hour x 2 doses (total dose = 40 mEq) for potassium level 3.0 to 3.4 mg/dL. Repea t potassium level in AM. Administer 20 mE q every hour x 3 doses (total dose = 60 mEq) for potassium level less than or equal to 2.9. Repeat potassium level 4 hours after last oral dose administered . Administer only if serum creatinine is less than 2 within the previous 48 hour s and sustained urine output is greater than 20 mL/hr for 6 hours (if able to monitor). Completely dissolve tablet in 3 to 4 ounces (90-120 mL) of cold juice or water before administering. For flui d restricted patients, a smaller volume may be used to dilute (e.g. 15-30 mL). potassium chloride (KLOR-CON) CR tablet 20 mEq 20 mEq, Oral, As needed, standard electrolyte replacement, Starting on 06/25/21 at 0233, Replace in addition to any scheduled potassium doses. Administer 20 mEq every hour x 2 doses (total dose = 40 mEq) for potassium level 3.0 to 3.4 mg/dL. Repeat potassiu m level in AM. Administer 20 mEq every hour x 3 doses (total dose = 60 mEq) fo r potassium level less than or equal to 2.9. Repeat potassium level 4 hours after last oral dose administered. Administer only if serum creatinine is less than 2 within the previous 48 hour s and sustained urine output is greater than 20 mL/hr for 6 hours (if able to monitor). DO NOT CRUSH OR CHEW. potassium chloride 20 mEq in 100 mL IVP B 20 mEq, Intravenous, Administer over 2 Hours, As needed, standard electrolyte replacement, Starting on Sun06/25/21 at 0233, Administer if unable to take oral potassium. Replace in addition to any scheduled potassium doses. Administer 20 mEq x 2 doses (total dose = 40 mEq) for potassium level 3.0 to 3.4 mg/dL. Repeat potassium level in AM. Administe r 20 mEq x 3 doses (total dose = 60 mEq) for potassium level less than or equal to 2.9. Repeat potassium level 2 hours after last infusion complete. Administer only if serum creatinine is less than 2 within the previous 48 hour s and sustained urine output is greater than 20 mL/hr for 6 hours (if able to monitor). Potassium chloride should be infused at a rate of 10 mEq/hr through a peripheral line, or at a rate of 20 mEq/hr through a central line. prochlorperazine (COMPAZINE) injection 5-10 mg 5-10 mg, Intravenous, Every 4 hours PRN , nausea/vomiting (1st line), Starting on 06/25/21 at 0233, May repeat 5 mg dose x 1 after 30 minutes if first dose ineffective. Do not exceed a total dos e of 40 mg within a 24 hour period. Rate of administration should not exceed 5 mg/minute. prochlorperazine (COMPAZINE) injection 5-10 mg 5-10 mg, Intramuscular, Every 4 hours PRN, nausea/vomiting (1st line), Starting on 06/25/21 at 0233, Administer if patient does not have IV access. May repeat 5 mg dose x 1 after 60 minutes if first dose ineffective. Do not exceed a total dose of 40 mg within a 24 hour period. prochlorperazine (COMPAZINE) suppositor y 25 mg 25 mg, Rectal, Every 12 hours PRN, nausea/vomiting (1st line), Starting on 06/25/21 at 0233, Administer if patient does not have IV access and refuses IM injection. sodium chloride (OCEAN) 0.65 % nasal spray 1 spray 1 spray, Each Nare, As needed, irritation, Starting on 06/25/21 at 0233 06/30/2021 8:53 AM CDT 25 mL 100 mL/hr sodium chloride 0.9% (NS) flush bag New Bag 25 mL, Intravenous, at 100 mL/hr, Continuous PRN, to flush line, Starting on 06/27/21 at 0529, Only use a Ne w Bag action if you are hanging a new bag This bag expires 24 hours after hanging. To be implemented as an intravenous flush following intermitten t infusions where there is no primary infusion. Patients with fluid restrictions may be excluded. 25 mL 100 mL/hr New Bag 06/29/2021 5:16 PM CDT 25 mL 100 mL/hr New Bag 06/29/2021 5:26 AM CDT 06/26/2021 5:27 AM CDT 130 mL/hr 130 mL/hr sodium chloride 0.9% infusion New Bag 130 mL/hr, Intravenous, Continuous, Starting on 06/25/21 at 0300, For 48 hours 130 mL/hr 130 mL/hr New Bag 06/25/2021 8:11 PM CDT 130 mL/hr 130 mL/hr New Bag 06/25/2021 3:18 AM CDT 06/25/2021 5:43 PM CDT 50 mL/hr 50 mL/hr sodium chloride 0.9% infusion New Bag Intravenous, Code/trauma/sedation continuous med, Starting on 06/25/21 at 1743 06/29/2021 5:17 PM CDT 1,250 mg 166.67 mL/hr vancomycin (VANCOCIN) 1,250 mg in sodium New Bag chloride 0.9 % (NS) 250 mL IVPB 1,250 mg, Intravenous, at 166.67 mL/hr, Every 12 hours, Indications: OSTEOMYELITIS, First dose on Sat 1 at 0600, For 10 doses, REFRIGERATE 1,250 mg 166.67 mL/hr New Bag 06/29/2021 5:26 AM CDT 1,250 mg 166.67 mL/hr New Bag 06/28/2021 6:07 PM CDT documented in this encounter Active and Recently Administered Medications Times are shown in CDT. 06/29/2021 06/30/2021 Medication Order 06/28/2021 0023 (Given - Provider: Yari Fowler RN )0813 (Given - Provider: Sis Newby, AALIYAH)1712 (Given - Provider: Sis Newby, AALIYAH) 0058 (Given - Provider: Yari Fowler RN )0840 (Given - Provider: Doris Romeo RN) cefepime (MAXIPIME) injection 2 g 0013 (Given - 2 g, Intravenous, Every 8 hours Provider: Heidy scheduled, Indications: OSTEOMYELITIS, Stacie, AALIYAH) 1038 First dose on 06/25/21 at 0445, If (Given - Provi pietro: giving IV push, reconstitute each vial Sis english, with 20 ml sterile water and give over RN)1734 (Give n - 3-5 minutes If sterile water is Provider: Sis pelayo, may use Bacteriostatic AALIYAH Newby) Water or Normal Saline for reconstitution 0853 (New Bag - Provider: Doris Romeo , AALIYAH) dalbavancin 1,500 mg in dextrose (D5W) 5 % 250 mL IVPB (COMPLETED) 1,500 mg, Intravenous, Administer over 30 Minutes, Once, On Valentine 06/30/21 at 0900 , For 1 dose, REFRIGERATE Infuse over 30 minutes. If a common IV line is bein g used to administer other drugs in addition to dalbavancin, the line shoul d be flushed before and after infusion with D5W. 0813 (Given - Provider: Sis Newby RN) 0840 (Given - Provider: Doris Romeo, AALIYAH) enoxaparin (LOVENOX) syringe 40 mg 1323 (Given - 40 mg, Subcutaneous, Every 24 hours Provider: Suzette herzog scheduled, First dose on Sun06/28/21 at AALIYAH Newby) 1300, OK for pharmacy to dose medicatio n based on renal function, age, weight, and indication. 0813 (Given - Provider: Sis Newby RN)2007 (Given - Provider: Yari Fowler RN) 0839 (Given - Provider: Doris Romeo, AALIYAH) lactobacillus (CULTURELLE) 10 billion 1040 (Given - cell capsule Provider: Sis 1 capsule, Oral, 2 times daily, First AALIYAH Newby)203 0 dose on 06/25/21 at 1000, Capsule may (Given - Pr ovider: be opened Yari Fowler RN) 2007 (Given - Provider: Yari Fowler, AALIYAH ) melatonin tablet 6 mg 2031 (Given - 6 mg, Oral, Nightly, First dose (after Provider: Dada Bartlett last modification) on Sun06/26/21 at AALIYAH Fowler) 2100, Give 3-4 hours prior to planned bedtime. 0813 (Given - Provider: Sis Newby, AALIYAH)2006 (Given - Provider: Yari Fowler RN) 0839 (Given - Provider: Doris Romeo RN) orphenadrine (NORFLEX) injection 60 mg 0013 (Given - 60 mg, Intravenous, Every 12 hours Provider: Heidy scheduled, First dose on 06/26/21 at AALIYAH Quinones )1123 1345 (Given - Provider: Sis Newby RN)2030 (Given - Provider: Yari Fowler RN) 0526 (New Bag - Provider: Yari Fowler RN)1717 (New Bag - Provider: Sis Newby RN) vancomycin (VANCOCIN) 1,250 mg in sodium 0602 (New B ag - chloride 0.9 % (NS) 250 mL IVPB Provider: Heidy (COMPLETED) AALIYAH Quinones)1807 1,250 mg, Intravenous, at 166.67 mL/hr, (New Bag - P rovider: Every 12 hours, Indications: Sis Newby RN) OSTEOMYELITIS, First dose on Sat 1 at 0600, For 10 doses, REFRIGERATE 06/29/2021 06/30/2021 Medication Order 06/28/20212007 (See Alternative - Provider: Yari Fowler RN) acetaminophen (TYLENOL) suppository 0017 (See 325-650 mg(Linked Group 1) Alternative - 325-650 mg, Rectal, Every 6 hours PRN, Provider: Etta cavazos mild pain (pain score 1-3), fever, AALIYAH Quinones) Starting on 06/25/21 at 0233, Administer if patient unable to tolerat e oral medications. 2007 (Given - Provider: Yari Fowler RN ) acetaminophen (TYLENOL) tablet [id number] 3584 (Given - mg(Linked Group 1) Provider: Heidy 325-650 mg, Oral, Every 6 hours PRN, AALIYAH Quinones) mild pain (pain score 1-3), fever, Starting on 06/25/21 at 0233, Do not exceed 4 GM/DAY of acetaminophen. If 6 5 or older do not exceed 3 GM/DAY. If chronic alcoholic do not exceed 2 GM/DAY. 2008 (Given - Provider: Yari Fowler, AALIYAH ) ALPRAZolam (XANAX) tablet 0.25 mg 2029 (Given - 0.25 mg, Oral, Every 6 hours PRN, Provider: Yari everett, Starting on 06/25/21 at Malcolm, AALIYAH) 023, Hold if patient drowsy. Do not give to patients with confusion or dementia. aluminum-magnesium hydroxide-simethicon e (MAALOX PLUS) 400-400-40 mg/5 mL suspension 15 mL 15 mL, Oral, Every 4 hours PRN, indigestion, Starting on 06/25/21 at 0233, Avoid if estimated glomerular filtration rate (eGFR) is less than 20 mL/minute/1.73m2. benzocaine-menthoL (CEPACOL) lozenge 1 lozenge 1 lozenge, Buccal, Every 1 hour prn, sore throat, Starting on 06/25/21 at 0233 bisacodyL (DULCOLAX) suppository 10 mg 10 mg, Rectal, Daily PRN, constipation, constipation in patients who are NPO, i n patients who have nausea, or in patient s where there is any concern about ileus or bowel obstruction., Starting on 06/25/21 at 0233, Hold these medications if patient has had loose stool or diarrhea within previous 24 hours. docusate sodium (COLACE) capsule 100 mg 100 mg, Oral, 2 times daily PRN, stool softening, Starting on 06/25/21 at 0233, Swallow capsule whole fentaNYL (SUBLIMAZE) injection 12.5-25 1044 (Given - mcg Provider: Sis 12.5-25 mcg, Intravenous, Every 2 hours AALIYAH Newby) PRN, severe pain (pain score 7-10), Starting on 06/25/21 at 0811, Administer over 2 minutes; max dose for IVP is 2 mcg/kg. Note: Limit does not apply to patients who may be tolerant t o opioid therapy or on continuous IV or P O opiate therapy. guaiFENesin (ROBITUSSIN) 100 mg/5 mL syrup 200 mg 200 mg, Oral, Every 4 hours PRN, cough, Starting on 06/25/21 at 0233 magnesium sulfate IVPB 2 gram (premix) 2 g, Intravenous, at 25 mL/hr, As needed, standard electrolyte replacement, Starting on 06/25/21 at 0233, Replace in addition to any scheduled magnesium doses. Administer 2 grams over 2 hours for magnesium level less than or equal to 1.4 mg/dL. Repeat magnesium level in AM. Administer only if serum creatinine is less than 2 within the previous 48 hours and sustained urine output is greater than 20 mL/hr for 6 hours (if able to monitor). miconazole nitrate (ALOE VESTA) 2 % ointment Topical, 3 times daily PRN, perineal or skin fold redness, Starting on 06/25/21 at 0233, Consult wound care if no improvement within 3 days. nitroglycerin (NITROSTAT) SL tablet 0.4 mg 0.4 mg, Sublingual, Every 5 min PRN, chest pain, Starting on 06/25/21 at 0233, For 3 doses, May repeat every 5 minutes for a total of 3 doses. Check B P prior to each dose. Discontinue use for SBP less than 90 mmHg. Notify physicia n if given. DO NOT CRUSH OR CHEW. ondansetron (ZOFRAN) injection 4 mg 4 mg, Intravenous, Every 6 hours PRN, nausea/vomiting (2nd line), Starting on 06/25/21 at 0233 0813 (Given - Provider: Sis Newby RN)1248 (Given - Provider: Sis Newby RN)1712 (Given - Provider: Sis Newby RN) 0611 (Given - Provider: Larissa Dean RN)1143 (Given - Provider: Doris Romeo RN) oxyCODONE (ROXICODONE) immediate release 0726 (Given - tablet 5 mg Provider: Sis 5 mg, Oral, Every 4 hours PRN, natacha Newby RN)1 323 pain (pain score 4-6), Starting on Sat (Given - Prov ider: 06/25/21 at 0811 Sis Newby RN)1734 (Given - Provider: Sis Newby RN)2255 (Given - Provider: Yari Fowler RN) polyethylene glycol (GLYCOLAX) packet 1 7 g 17 g, Oral, Daily PRN, constipation, constipation, Starting on 06/25/21 a t 0233, Mix in 4-8 ounces of liquid. Hold these medications if patient has had loose stool or diarrhea within previous 24 hours. potassium bicarb-citric acid (EFFER-K) effervescent tablet 20 mEq(Linked Group 2) 20 mEq, Oral, As needed, standard electrolyte replacement, Starting on Sa t 06/25/21 at 0233, Administer if unable t o swallow potassium tablets. Replace in addition to any scheduled potassium doses. Administer 20 mEq every hour x 2 doses (total dose = 40 mEq) for potassium level 3.0 to 3.4 mg/dL. Repea t potassium level in AM. Administer 20 mE q every hour x 3 doses (total dose = 60 mEq) for potassium level less than or equal to 2.9. Repeat potassium level 4 hours after last oral dose administered . Administer only if serum creatinine is less than 2 within the previous 48 hour s and sustained urine output is greater than 20 mL/hr for 6 hours (if able to monitor). Completely dissolve tablet in 3 to 4 ounces (90-120 mL) of cold juice or water before administering. For flui d restricted patients, a smaller volume may be used to dilute (e.g. 15-30 mL). potassium chloride (KLOR-CON) CR tablet 20 mEq(Linked Group 2) 20 mEq, Oral, As needed, standard electrolyte replacement, Starting on t 06/25/21 at 0233, Replace in addition to any scheduled potassium doses. Administer 20 mEq every hour x 2 doses (total dose = 40 mEq) for potassium level 3.0 to 3.4 mg/dL. Repeat potassiu m level in AM. Administer 20 mEq every hour x 3 doses (total dose = 60 mEq) fo r potassium level less than or equal to 2.9. Repeat potassium level 4 hours after last oral dose administered. Administer only if serum creatinine is less than 2 within the previous 48 hour s and sustained urine output is greater than 20 mL/hr for 6 hours (if able to monitor). DO NOT CRUSH OR CHEW. potassium chloride 20 mEq in 100 mL IVPB(Linked Group 2) 20 mEq, Intravenous, Administer over 2 Hours, As needed, standard electrolyte replacement, Starting on 06/25/21 at 0233, Administer if unable to take oral potassium. Replace in addition to any scheduled potassium doses. Administer 20 mEq x 2 doses (total dose = 40 mEq) for potassium level 3.0 to 3.4 mg/dL. Repeat potassium level in AM. Administe r 20 mEq x 3 doses (total dose = 60 mEq) for potassium level less than or equal to 2.9. Repeat potassium level 2 hours after last infusion complete. Administer only if serum creatinine is less than 2 within the previous 48 hour s and sustained urine output is greater than 20 mL/hr for 6 hours (if able to monitor). Potassium chloride should be infused at a rate of 10 mEq/hr through a peripheral line, or at a rate of 20 mEq/hr through a central line. prochlorperazine (COMPAZINE) injection 5-10 mg(Linked Group 3) 5-10 mg, Intravenous, Every 4 hours PRN , nausea/vomiting (1st line), Starting on 06/25/21 at 0233, May repeat 5 mg dose x 1 after 30 minutes if first dose ineffective. Do not exceed a total dos e of 40 mg within a 24 hour period. Rate of administration should not exceed 5 mg/minute. prochlorperazine (COMPAZINE) injection 5-10 mg(Linked Group 3) 5-10 mg, Intramuscular, Every 4 hours PRN, nausea/vomiting (1st line), Starting on 06/25/21 at 0233, Administer if patient does not have IV access. May repeat 5 mg dose x 1 after 60 minutes if first dose ineffective. Do not exceed a total dose of 40 mg within a 24 hour period. prochlorperazine (COMPAZINE) suppositor y 25 mg(Linked Group 3) 25 mg, Rectal, Every 12 hours PRN, nausea/vomiting (1st line), Starting on 06/25/21 at 0233, Administer if patient does not have IV access and refuses IM injection. sodium chloride (OCEAN) 0.65 % nasal spray 1 spray 1 spray, Each Nare, As needed, irritation, Starting on 06/25/21 at 0233 0526 (New Bag - Provider: Yari Fowler RN)1716 (New Bag - Provider: Sis Newby, AALIYAH) 0887 (New Bag - Provider: Doris Romeo RN) sodium chloride 0.9% (NS) flush bag 0601 (Continue S misael 25 mL, Intravenous, at 100 mL/hr, Bag - Provider: Continuous PRN, to flush line, Starting Heidy espinoza, on 06/27/21 at 0529, Only use a New RN)1805 (Cheli w Bag - Bag action if you are hanging a new Provider: Suzette herzog bag This bag expires 24 hours after AALIYAH Newby) hanging. To be implemented as an intravenous flush following intermitten t infusions where there is no primary infusion. Patients with fluid restrictions may be excluded. Order Group 1: acetaminophen (TYLENOL) tablet 325-650 mgJump to med 325-650 mg, Oral, Every 6 hours PRN, mi ld pain (pain score 1-3), fever, Starting on 06/25/21 at 0233
Do not exceed 4 GM/DAY of aceta minophen. If 65 or older do not exceed 3 GM/DAY. If chronic alcoholic do no t exceed 2 GM/DAY.
Or acetaminophen (TYLENOL) suppository 325 -650 mgJump to med 325-650 mg, Rectal, Every 6 hours PRN, mild pain (pain score 1-3), fever, Starting on 06/25/21 at 0233
Administer if patient unable to tolerate oral medications.
Group 2: potassium chloride (KLOR-CON) CR tablet 20 mEqJump to med 20 mEq, Oral, As needed, standard elect rolyte replacement, Starting on 06/25/21 at 0233
Replace in addition to any sche duled potassium doses. Administer 20 mEq every hour x 2 doses (total dose = 40 mEq) fo r potassium level 3.0 to 3.4 mg/dL. Repeat potassium level in AM. Administer 20 mEq every hour x 3 doses (total dose = 60 mEq) for potassium level less than or equal to 2.9. Repeat potassium level 4 hours after last oral dose administered. Administer only if serum cr eatinine is less than 2 within the previous 48 hours and sustained urine output is greater than 20 mL/hr for 6 hours (if able to monitor). DO NOT CRUSH OR CHEW.
Or potassium bicarb-citric acid (EFFER-K) effervescent tablet 20 mEqJump to med 20 mEq, Oral, As needed, standard elect rolyte replacement, Starting on 06/25/21 at 0233
Administer if unable to swallow potassium tablets. Replace in addition to any scheduled potassium doses. Administer 20 mEq every hour x 2 doses (total dose = 40 mEq) for potassium level 3.0 to 3.4 mg/dL. Repea t potassium level in AM. Administer 20 mEq every hour x 3 doses (total dose = 60 mEq) for potas sium level less than or equal to 2.9. Repeat potassium level 4 hours after last oral dose administer ed. Administer only if serum creatinine is less than 2 within the previous 48 hours and sustained urine output is greater than 20 mL/hr for 6 hours (if able to monitor). Completely d issolve tablet in 3 to 4 ounces (90-120 mL) of cold juice or water before administering. For fluid r estricted patients, a smaller volume may be used to dilute (e.g. 15-30 mL).
Or potassium chloride 20 mEq in 100 mL IVP BJump to med 20 mEq, Intravenous, Administer over 2 Hours, As needed, standard electrolyte replacement, Starting on 06/25/21 at 0233
Administer if unable to take oral potassium. Replace in addition to any scheduled potassium doses. &nb sp;Administer 20 mEq x 2 doses (total dose = 40 mEq) for potassium level 3.0 to 3.4 mg/dL. Repea t potassium level in AM. Administer 20 mEq x 3 doses (total dose = 60 mEq) for potassium lev el less than or equal to 2.9. Repeat potassium level 2 hours after last infusion complete. &nb sp;Administer only if serum creatinine is less than 2 within the previous 48 hours and sustained uri ne output is greater than 20 mL/hr for 6 hours (if able to monitor). Potassium chloride shoul d be infused at a rate of 10 mEq/hr through a peripheral line, or at a rate of 20 mEq/hr through a central line.
Group 3: prochlorperazine (COMPAZINE) injection 5-10 mgJump to med 5-10 mg, Intravenous, Every 4 hours PRN , nausea/vomiting (1st line), Starting on 06/25/21 at 0233
May repeat 5 mg dose x 1 after 30 minutes if first dose ineffective. Do not exceed a total dose of 40 mg within a 24 hour pe riod. Rate of administration should not exceed 5 mg/minute.
Or prochlorperazine (COMPAZINE) injection 5-10 mgJump to med 5-10 mg, Intramuscular, Every 4 hours P RN, nausea/vomiting (1st line), Starting on 06/25/21 at 0233
Administer if patient does not have IV access. May repeat 5 mg dose x 1 after 60 minutes if first dose ineffective. &nbs p;Do not exceed a total dose of 40 mg within a 24 hour period.
Or prochlorperazine (COMPAZINE) suppositor y 25 mgJump to med 25 mg, Rectal, Every 12 hours PRN, naus ea/vomiting (1st line), Starting on 06/25/21 at 0233
Administer if patient does not have IV access and refuses IM injection.
documented in this encounter
--- OUTSIDE RECORDS SUMMARY | 2021-07-09 12:06 | XMS REPORT | Clinical Summary ---
Author Author [facility] Organization 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 Active Problems Problem Noted Date Osteomyelitis of lumbar spine 06/25/2021 Last Assessment & Plan: Formatting of this note might be differ ent from the original. -Likely secondary to drug abuse. -CRP presentation is 22, ER 90. -Blood cultures negative to date. -MRI of lumbar spine showed discitis an d osteomyelitis of L5-S1. No epidural abscess. -Status post IR guided aspiration. Cul tures negative to date. -Continue vancomycin and cefepime. -Transthoracic echo normal. IVDU (intravenous drug user) 06/25/2021 Last Assessment & Plan: Formatting of this note might be differ ent from the original. -UDS at outside hospital negative. -HIV and hepatitis testing negative. Resolved Problems Problem Noted Date Resolved Date Anemia of unknown etiology 06/28/2021 06/29/2021 Last Assessment & Plan: Formatting of this note might be differ ent from the original. Unclear cause, no signs and symptoms of bleeding: -check vitamin levels Tobacco abuse 06/25/2021 06/27/2021 Last Assessment & Plan: Formatting of this note might be differ ent from the original. Patient is a daily smoker, half pack pe r day with a 15-year pack history, unfortunately she is unwilling to quit at this time - encourage cessation Lumbar back pain with radiculopathy affecting left lower ex tremity 06/25/2021 06/27/2021 Last Assessment & Plan: Formatting of this note might be differ ent from the original. - pain control - see osteomyelitis of the spine Encounters Care Team Description Date Type Specialty Spencer Squires MD Osteomyelitis of lumbar spine (HCC) (Emiliana sanjay Dx) 07/08/2021 Hospital Infusion Therapy Encounter Spencer Squires MD 06/30/2021 Orders Only Infusion Therapy Hospitalist, Physician Devante Swartz, DO Spencer Squires MD 06/25/2021 Hospital Neurology - Encounter 06/30/2021 Janna Mercado MD 06/24/2021 Orders for General Internal Me [facility] Vinnie, Default Authenticator 06/24/2021 Josephare from Last 3 Months Family History Medical History Relation Name Comments Diabetes Father Hypertension Father Cirrhosis Mother Diabetes Mother Hypothyroidism Mother No Known Problems Sister Relation Name Status Comments Father Alive Mother Alive Sister Alive Social History Date Tobacco Use Types Packs/Day Years Used Current Every Day Smoker 0.5 30 Smokeless Tobacco: Never Used Tobacco Cessation: Ready to Quit: No Comments Alcohol Use Standard Drinks/Week Not Currently 0 (1 standard drink = 0.6 o z pure alcohol) Sex Assigned at Date Recorded Not on file Last Filed Vital Signs Reading Time Taken [...] - Height - - Body Mass Index Plan of Treatment Care Team Description Date Type Specialty Spencer Squires MD [address] [place] [address] [phone] 07/15/2021 Appointment Infusion Therapy Health Maintenance Due Date Last Done Comments Spirometry # 1975 Td/Tdap# 1975 Tobacco Cessation 1975 Counseling # Pneumococcal Vaccine: 1980 Pediatrics (0 to 5 Years) and At-Risk Patients (6 to 64 Years) (1 of 2 - PPSV23) COVID-19 Vaccine (1) 1986 Cervical Cancer Screening 1995 via Pap Smear Influenza Vaccine (#1) 2021 Procedures Comments Procedure Name Priority Date/Time Associated Diag nosis BASIC METABOLIC PANEL Routine 06/30/2021 6:03 AM CDT CBC AND DIFF (MANUAL DIFF Routine 06/30/2021 IF NECESSARY) 6:03 AM CDT FERRITIN Add-On 06/28/2021 7:19 AM CDT IRON/TRANSFERRIN Add-On 06/28/2021 7:19 AM CDT B12/FOLATE Add-On 06/28/2021 7:19 AM CDT CBC AND DIFF (MANUAL DIFF Routine 06/28/2021 IF NECESSARY) 7:19 AM CDT BASIC METABOLIC PANEL Routine 06/28/2021 7:19 AM CDT ECHO COMPLETE W DOPPLER Routine 06/27/2021 AND COLOR FLOW 1:11 PM CDT MRI LUMBAR SPINE W WO Routine 06/26/2021 CONTRAST 2:42 PM CDT VANCOMYCIN TROUGH Timed 06/26/2021 5:35 AM CDT CULTURE, WOUND WITH GRAM Routine 06/25/2021 STAIN (AEROBIC) 6:02 PM CDT CULTURE, FUNGUS Routine 06/25/2021 6:02 PM CDT CULTURE, AFB Routine 06/25/2021 6:02 PM CDT CULTURE, ANAEROBE Routine 06/25/2021 6:02 PM CDT IR DISC ASPIRATION Routine 06/25/2021 6:00 PM CDT CLOTTING SCREEN STAT 06/25/2021 10:55 AM CDT ACUTE HEPATITIS PANEL Add-On 06/25/2021 8:36 AM CDT HIV AG/KHANH Add-On 06/25/2021 8:36 AM CDT COMPREHENSIVE METABOLIC STAT 06/25/2021 PANEL 8:36 AM CDT CBC AND DIFF (MANUAL DIFF STAT 06/25/2021 IF NECESSARY) 8:36 AM CDT POWERSHARE OUTSIDE IMAGES Routine 06/25/2021 FOR PACS 3:38 AM CDT SARS-COV-2, SARA Routine 06/25/2021 (COVID-19) 3:20 AM CDT MRSA/MSSA NASAL PCR Routine 06/25/2021 3:20 AM CDT CULTURE, BLOOD Timed 06/25/2021 3:13 AM CDT C-REACTIVE PROTEIN Add-On 06/25/2021 3:02 AM CDT ERYTHROCYTE SEDIMENTATION Add-On 06/25/2021 RATE 3:02 AM CDT MAGNESIUM Add-On 06/25/2021 3:02 AM CDT CULTURE, BLOOD Timed 06/25/2021 3:02 AM CDT from Last 3 Months Results * CBC and Diff (manual diff if necessary) (06/30/2021 6:03 AM CDT) Only the most recent of 3 results within the time period is included. WBC 8.46 4.00 - 11.00 TH/uL [facility] RBC 4.03 4.00 - 5.00 MIL/uL [facility] Hemoglobin 11.2 (L) 12.0 - 15.0 g/dL [facility] Hematocrit 34 (L) 36 - 45 % [facility] MCV 84 80.0 - 99.0 fL [facility] MCH 28 27.0 - 34.0 pg [facility] MCHC 33 32 - 36 % [facility] RDW 14.2 11.5 - 14.5 % [facility] Platelet Count 475 (H) 140 - 400 TH/uL [facility] MPV 9.0 (L) 9.4 - 12.3 fL [facility] Nucleated RBCs 0 0 - 0 /100 [facility] % Neutrophils 60 45 - 78 % [facility] %Lymphocytes 26 15 - 47 % [facility] % Monocytes 10 0 - 12 % [facility] %Eosinophils 3 0 - 7 % [facility] %Basophils 1 0 - 2 % [facility] % Imm Grans 1 0 - 1 % [facility] # Granulocytes 5.12 1.70 - 6.80 TH/uL [facility] # Lymphocytes 2.22 1.00 - 3.30 TH/uL [facility] # Monocytes 0.80 0.20 - 0.90 TH/uL [facility] # Eosinophils 0.22 0.00 - 0.40 TH/uL [facility] # Basophils 0.10 0.00 - 0.10 TH/uL [facility] Specimen Blood Performing Organization Address City/State/ZIP Code P edi Number [address] [address] LABORATORIES [facility] [address] [place] [address] * Basic Metabolic Panel (06/30/2021 6:03 AM CDT) Only the most recent of 2 results within the time period is included. Sodium 133 133 - 147 MEQ/L [facility] Potassium 4.5 3.5 - 5.3 MEQ/L [facility] Chloride 98 96 - 112 MEQ/L [facility] Carbon Dioxide 23 20 - 32 MEQ/L [facility] Anion Gap 13 5 - 17 [facility] Calcium 10.4 8.4 - 10.5 mg/dL [facility] Glucose 99 70 - 100 mg/dL [facility] Blood Urea 21 7 - 26 mg/dL [facility] Creatinine 0.5 0.4 - 1.1 mg/dL [facility] eGFR Female AA >130 60 - 200 [facility] mL/min/1.73sq [facility] eGFR Female >130 60 - 200 [facility] Non-AA mL/min/1.73sq [facility] Specimen Blood Performing Organization Address City/[facility]/ZIP Code P edi Number [facility] [address] [place] [address] LABORATORIES [facility] [address] [place] [address] * Iron/Transferrin (06/28/2021 7:19 AM CDT) Iron 28 (L) 50 - 180 ug/dL [facility] Transferrin 262 206 - 381 mg/dL [facility] Total 314 204 - 408 ug/dL [facility] Iron-Binding [facility] Capacity Iron/Transferri 9 (L) 15 - 50 % [facility] n % Saturation [facility] Specimen Blood Performing Organization Address City/[facility] Code P edi Number [facility] [address] [place] [address] LABORATORIES [facility] [address] [place] [address] * Ferritin (06/28/2021 7:19 AM CDT) Ferritin 118 20.0 - 200.0 ng/mL [facility] Specimen Blood Performing Organization Address City/[facility]/ZIP Code P edi Number [facility] [address] [place] [address] LABORATORIES [facility] [address] [place] [address] * B12/Folate (06/28/2021 7:19 AM CDT) VITAMIN B12 281 239 - 931 pg/mL [facility] Folate 4.3 3.4 - 20.0 ng/mL [facility] Specimen Blood Performing Organization Address City/[facility]/ZIP Code P edi Number [facility] [address] [place] [address] LABORATORIES [facility] [address] [place] [address] * Echo Complete with Doppler and Color [...] JILL MARQUEZ Date: 06/27/2021 12:49 Chart #: [id number] : 1975 Location: [facility] Sono: [email or web address] Age: 45 Gender: F Referring: ASHLEY LYNNE [...] JILL MARQUEZ Date: 06/27/2021 12:49 Chart #: [id number] : 1975 Location: [facility] Sono: [email or web address] Age: 45 Gender: F [...] osteomyelitis at L5-S1 with prominent enhancing epidural MCKESSON phlegmon resulting in left lateral rece ss effacement and mild spinal canal narrowing at L5-S1. No epidural a bscess. Peripherally enhancing fluid in the L5-S1 disc extends into th e prevertebral soft tissues with a tiny prevertebral abscess at L5-S1. ATTESTATION STATEMENT: The Staff Radiol ogist has personally reviewed the images and dictated, reviewed, or edite d the final report. READING SITE: [facility] Narrative Performed At Patient: JILL MARQUEZ Sex#: F #: [id number] Sage# : [id number] Location: [address] Accession# : [id number] Ordering Provider: DAVID GRAJEDA Procedure Requested: [id number] MRI LUMB AR SPINE W WO CONTRAST [...] JILL MARQUEZ Sex#: F #: 1975 Sage#: [id number] Location: [address]01 Ordering Provider: DAVID GRAJEDA Procedure Requested: [id number] MRI LUMBAR SPINE W WO CONTRAST Reason [...] or edited the final report. READING SITE: [facility] Performing Organization Address [facility] Code P edi Number [email or web address] * Vancomycin Trough (06/26/2021 5:35 AM CDT) Pathologist [facility] Vancomycin 11 10 - 20 ug/mL [facility] Specimen Blood Performing Organization Address [facility] Code P edi Number [facility] [address] [place] [address] LABORATORIES [facility] [address] [place] [address] * Culture, Wound with Gram Stain (Aerobic) (06/25/2021 6:02 PM CDT) Gram Stain Rare Polymorphonuclear [facility] Gram Stain No squamous epithelial cells [facility] Gram Stain No organisms seen [facility] Culture Result No growth at 3 days [facility] Specimen DISC ASPIRATE Performing Organization Address City/[facility]/ZIP Code P edi Number [facility] [address] [place] [address] LABORATORIES [facility] [address] [place] [address] * Culture, Anaerobe (06/25/2021 6:02 PM CDT) Culture Result No anaerobes isolated at [address] [facility] Lab Specimen Disc Performing Organization Address [facility]/ZIP Code P edi Number [facility] [address] [place] [address] LABORATORIES [facility] [address] [place] [address] * IR Disc aspiration (06/25/2021 6:00 PM CDT) Specimen Impressions Performed At Successful disc aspiration at L5-S1. Specimen was sen t to the lab for MICHAELA gram stain and culture. ATTESTATION STATEMENT: The attending [facility] radiologist has personally reviewed the images and dictated, revie wed, or edited the final report. READING SITE: [facility] Narrative Performed At Patient: JILL MARQUEZ Sex#: F #: [id number] Sage# : [id number] Location: [address] Accession# : [id number] Ordering Provider: DAVID GRAJEDA Procedure Requested: [id number] IR DISC ASPIRATION Reason for Exam: L5 [...] conscio us sedation. Total physician to patient [id number] conscious sedation time is listed above. The L5-S1 level was localized with fluo roscopy. The skin overlying this level was then sterilely prepped, drape d, and infiltrated with 1% lidocaine for local anesthesia. Under f luoroscopic guidance, a 18 gauge 15 cm needle [...] JILL MARQUEZ Sex#: F #: [id number] Sage#: [id number] Location: [address]01 Ordering Provider: DAVID GRAJEDA Procedure Requested: [id number] IR DISC ASPIRATION Reason for Exam: L5 [...] in conscious sedation. Total physician to patient [id number] conscious sedation time is listed above. The [...] or edited the final report. READING SITE: [facility] Performing Organization Address City/[facility]/ZIP Code P edi Number MCKESSON * Clotting Screen (06/25/2021 10:55 AM CDT) Protime 13.6 11.4 - 15.0 sec [facility] INR 1.1 0.8 - 1.2 [facility] APTT 30 22 - 34 sec [facility] Specimen Blood Performing Organization Address City/State/ZIP Code P edi Number [address] [address] [address] [address] * HIV AG/KHANH (06/25/2021 8:36 AM CDT) HIV AG/KHANH Non-reactive Non-reactive [facility] Specimen Blood Performing Organization Address City/State/ZIP Code P edi Number [facility] [address] [place] [address] LABORATORIES [facility] [address] [place] [address] * Comprehensive Metabolic Panel (06/25/2021 8:36 AM CDT) Sodium 143 133 - 147 MEQ/L [facility] Potassium 3.8 3.5 - 5.3 MEQ/L [facility] Chloride 109 96 - 112 MEQ/L [facility] Carbon Dioxide 23 20 - 32 MEQ/L [facility] Anion Gap 11 5 - 17 [facility] Calcium 8.9 8.4 - 10.5 mg/dL [facility] Glucose 81 70 - 100 mg/dL [facility] Protein Total 6.2 6.0 - 8.2 g/dL [facility] Serum [facility] Albumin 3.1 (L) 3.5 - 5.0 g/dL [facility] Alkaline 93 42 - 140 IU/L [facility] Alanine 13 0 - 34 IU/L [facility] Lab e Aspartate 13 (L) 15 - 46 IU/L [facility] Lab e Bilirubin Total 0.2 0.2 - 1.3 mg/dL [facility] Blood Urea 15 7 - 26 mg/dL [facility] Lab Creatinine 0.5 0.4 - 1.1 mg/dL [facility] eGFR Female AA >130 60 - 200 [facility] mL/min/1.73sq [facility] Lab eGFR Female >130 60 - 200 [facility] Non-AA mL/min/1.73sq [facility] Lab Specimen Blood Performing Organization Address City/State/ZIP Code P edi Number [facility] [address] [place] [address] LABORATORIES [facility] [address] [place] [address] * Acute Hepatitis Panel (06/25/2021 8:36 AM CDT) Hepatitis B Non-reactive Non-reactive [facility] Ab [facility] Hepatitis B Non-reactive Non-reactive [facility] Hepatitis C Ab Non-reactive Non-reactive [facility] Hepatitis A Ab Non-reactive Non-reactive [facility] Lab Specimen Blood Performing Organization Address City/[facility]/ZIP Code P edi Number [facility] [address] [place] [address] LABORATORIES [facility] [address] [place] [address] * MRSA Nasal PCR (06/25/2021 3:20 AM CDT) Pathologist [facility] MRSA PCR Not Detected Not Detected [facility] Source [id number] [facility] Specimen NASOPHARYNGEAL SWAB Performing Organization Address [facility] P edi Number [address] [address] LABORATORIES [facility] [address] [place] [address] * SARS-COV-2, SARA (COVID-19) (06/25/2021 3:20 AM CDT) Pathologist [facility] SARS-CoV-2 PCR NegativeComment: This RT-PCR Negative [facility]'s test has been authorized by Hospital [facility] the FDA under an Emergency Use Authorization (EUA) for use by authorized laboratories. Specimen NASOPHARYNGEAL SWAB Performing Organization Address [facility] P edi Number [address] [address] LABORATORIES [facility] [address] [place] [address] * Culture, Blood (06/25/2021 3:13 AM CDT) Only the most recent of 2 results within the time period is included. Pathologist [facility] Culture Result No Growth at 5 days [facility] Specimen Blood Narrative Performed At LEFT AC 10ML [facility] LABORATORIES Performing Organization Address [facility] Code P edi Number [address] [address] LABORATORIES [facility] [address] [place] [address] * Magnesium (06/25/2021 3:02 AM CDT) Magnesium 1.3 (L) 1.4 - 2.7 mg/dL [facility] Specimen Blood Performing Organization Address City/[facility]/ZIP Code P edi Number [facility] [address] [place] [address] LABORATORIES [facility] [address] [place] [address] * Erythrocyte Sedimentation Rate (06/25/2021 3:02 AM CDT) Sed Rate 90 (H) 0 - 17 mm/h [facility] Specimen Blood Performing Organization Address City/[facility]/ZIP Code P edi Number [address] [address] LABORATORIES [facility] [address] [place] [address] * C-Reactive Protein (06/25/2021 3:02 AM CDT) C Reactive 24.1 (H)Comment: Infection or 0.0 - 10.0 mg/L [facility] Protein Inflammation >10.0 mg/L Hospital Lab Specimen Blood Performing Organization Address City/[facility]/ZIP Code P edi Number [address] [address] LABORATORIES [facility] [address] [place] [address] from Last 3 Months Advance Directives For more information, please contact: [phone] Patient Refractory Mixer Explanation Type Date Recorded Health Care Directive Date Inactivated Comments Code Status Date Activated Full Code 06/25/2021 2:33 AM
--- NOTE | 2021-07-09 12:09 | ED Back Pain ---
General Stated Complaint: BACK PAIN/BONE INFECTION Source of Information: Patient Exam Limitations: No Limitations (ATTILA ASENCIO APRN) History of Present Illness Date Seen by Provider: Jul 09, 2021 Time Seen by Provider: 12:09 Initial Comments This is a 45-year-old female who presented to the ER with Complaints of low back pain. 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 She is currently followed by [facility] and infectious disease. She takes an antibiotic 750 mg daily, unsure of name. States she also has weekly infusions with her last infusion yesterday. However, states that her pain is persisting despite her antibiotic infusions. Was told by [facility] to follow-up with her primary care provider for pain management however she is unable to get in for couple weeks. States that [id number] medications are not helping. Has chills, subjective fevers (ATTILA ASENCIO APRN) Allergies and Home Medications Allergies Coded Allergies: No Known Drug Allergies (Unverified , 05/18/21) Patient Home Medication List Home Medication List Reviewed: Yes (ATTILA ASENCIO APRN) Cyclobenzaprine HCl (Cyclobenzaprine HCl) 10 Mg Tablet, 10 MG PO Q8H PRN for SPASMS Prescribed by: EDWARD CHI on 05/19/21 0048 Cyclobenzaprine HCl (Cyclobenzaprine HCl) 10 Mg Tablet, 10 MG PO Q8H PRN for SPASMS Prescribed by: ATTILA ASENCIO on 07/09/21 1310 Hydrocodone/Acetaminophen (Hydrocodone-Acetamin 10-325 mg) 1 Each Tablet, 1 EACH PO Q6H PRN for PAIN-SEVERE (8-10) Prescribed by: ATTILA ASENCIO on 07/09/21 1311 Naproxen (Naproxen) 500 Mg Tablet.dr, 500 MG PO BID Prescribed by: EDWARD CHI on 05/19/21 0048 Review of Systems Constitutional: see HPI EENTM: no symptoms reported Respiratory: no symptoms reported Cardiovascular: no symptoms reported Gastrointestinal: no symptoms reported Genitourinary: no symptoms reported Musculoskeletal: see HPI Skin: no symptoms reported Psychiatric/Neurological: No Symptoms Reported (ATTILA ASENCIO APRN) Past Kwzilnh-Uxwmgj-Lfrwuw Hx Seasonal Allergies Seasonal Allergies: No (ATTILA ASENCIO APRN) Past Medical History Surgery/Hospitalization HX: reports no PMH; surgical hx - gallbladder, BTL Surgeries: Yes Gallbladder, Tubal Ligation Respiratory: No Cardiac: No Neurological: No Female Reproductive Disorders: Menstrual Problems Genitourinary: No Gastrointestinal: No Musculoskeletal: Yes Chronic Back Pain Endocrine: No HEENT: Yes (POOR DENTITION) Cancer: No Psychosocial: Yes (SUBSTANCE ABUSE) Integumentary: No Blood Disorders: No (ATTILA ASENCIO APRN) Physical Exam Vital Signs Vital Signs - First Documented 07/09/21 07/09/21 12:10 12:31 Temp 36.1 Pulse 122 Resp 22 B/P (MAP) 111/91 Pulse Ox 98 O2 Delivery Room Air (ALON,EDWARD K DO) Vital Signs Capillary Refill : (ATTILA ASENCIO APRN) Height, Weight, BMI Height: '" Weight: lbs. oz. kg; 27.00 BMI Method: General Appearance: No Apparent Distress, WD/WN HEENT: PERRL/EOMI, Normal ENT Inspection Neck: Full Range of Motion, Normal Inspection, Supple Cardiovascular: Regular Rate, Rhythm, No Murmur, Normal Peripheral Pulses Respiratory: Lungs Clear, Normal Breath Sounds, No Accessory Muscle Use, No Respiratory Distress Peripheral Pulses: 2+ Dorsalis Pedis (R), 2+ Left Dors-Pedis (L), 2+ Radial Pulses (R), 2+ Radial Pulses (L) Gastrointestinal: Normal Bowel Sounds, No Organomegaly, No Pulsatile Mass, Non Tender, Soft Back: Normal Inspection, Muscle Spasm (lumbar paraspinous region ), Vertebral Tenderness (lumbar region ) Neurologic/Psychiatric: Alert, Oriented x3, No Motor/Sensory Deficits, Normal Mood/Affect, solid surface fabricator II-XII Norm as Tested Skin: Normal Color, Warm/Dry (ATTILA ASENCIO APRN) Progress/Results/Core Measures Results/Orders Lab Results Laboratory Tests Test 07/09/21 12:18 07/09/21 12:57 Range/Units White Blood Count 9.0 4.3-11.0 10^3/uL Red Blood Count 4.24 3.80-5.11 10^6/uL Hemoglobin 12.1 11.5-16.0 g/dL Hematocrit 38 35-52 % Mean Corpuscular Volume 89 80-99 fL Mean Corpuscular Hemoglobin 29 25-34 pg Mean Corpuscular Hemoglobin Concent 32 32-36 g/dL Red Cell Distribution Width 14.7 H 10.0-14.5 % Platelet Count 438 H 130-400 10^3/uL Mean Platelet Volume 9.4 9.0-12.2 fL Immature Granulocyte % (Auto) 0 % Neutrophils (%) (Auto) 65 42-75 % Lymphocytes (%) (Auto) 27 12-44 % Monocytes (%) (Auto) 6 0-12 % Eosinophils (%) (Auto) 1 0-10 % Basophils (%) (Auto) 1 0-10 % Neutrophils # (Auto) 5.8 1.8-7.8 10^3/uL Lymphocytes # (Auto) 2.4 1.0-4.0 10^3/uL Monocytes # (Auto) 0.5 0.0-1.0 10^3/uL Eosinophils # (Auto) 0.1 0.0-0.3 10^3/uL Basophils # (Auto) 0.1 0.0-0.1 10^3/uL Immature Granulocyte # (Auto) 0.0 0.0-0.1 10^3/uL Erythrocyte Sedimentation Rate 60 H 0-20 MM/HR Prothrombin Time 13.7 12.2-14.7 SEC INR Comment 1.0 0.8-1.4 Activated Partial Thromboplast Time 27 24-35 SEC Sodium Level 141 135-145 MMOL/L Potassium Level 3.7 3.6-5.0 MMOL/L Chloride Level 103 98-107 MMOL/L Carbon Dioxide Level 27 21-32 MMOL/L Anion Gap 11 5-14 MMOL/L Blood Urea Nitrogen 12 7-18 MG/DL Creatinine 0.78 0.60-1.30 MG/DL Estimat Glomerular Filtration Rate 80 BUN/Creatinine Ratio 15 Glucose Level 129 H 70-105 MG/DL Lactic Acid Level 1.57 0.50-2.00 MMOL/L Calcium Level 10.4 H 8.5-10.1 MG/DL Corrected Calcium 10.3 H 8.5-10.1 MG/DL Total Bilirubin 0.5 0.1-1.0 MG/DL Aspartate Amino Transf (AST/SGOT) 19 5-34 U/L Alanine Aminotransferase (ALT/SGPT) 52 0-55 U/L Alkaline Phosphatase 107 40-136 U/L C-Reactive Protein High Sensitivity 0.69 H 0.00-0.50 MG/DL Total Protein 8.5 H 6.4-8.2 GM/DL Albumin 4.1 3.2-4.5 GM/DL Procalcitonin 0.02 <0.10 NG/ML Urine Color YELLOW Urine Clarity SL CLOUDY Urine pH 6.0 5-9 Urine Specific [place] 1.025 H 1.016-1.022 Urine Protein TRACE H NEGATIVE Urine Glucose (UA) NEGATIVE NEGATIVE Urine Ketones NEGATIVE NEGATIVE Urine Nitrite NEGATIVE NEGATIVE Urine Bilirubin NEGATIVE NEGATIVE Urine Urobilinogen 0.2 < = 1.0 MG/DL Urine Leukocyte Esterase NEGATIVE NEGATIVE Urine RBC (Auto) NEGATIVE NEGATIVE Urine RBC NONE /HPF Urine WBC 0-2 /HPF Urine Squamous Epithelial Cells 2-5 /HPF Urine Crystals PRESENT H /LPF Urine Amorphous Sediment RARE MAHENDRA URATES H /LPF Urine Bacteria TRACE /HPF Urine Casts PRESENT /LPF Urine Granular Casts 0-2 H /LPF Urine Mucus MODERATE H /LPF Urine Culture Indicated CULTURE PENDING (EDWARD CHI DO) Micro Results Microbiology 07/09/21 C. difficile [facility] Antigen & Toxins - Final, Complete (EDWARD CHI DO) Vital Signs/I&O 07/09/21 07/09/21 07/09/21 07/09/21 12:10 12:31 12:52 13:55 Temp 36.1 36.1 36.1 Pulse 122 122 74 Resp 22 22 20 B/P (MAP) 111/91 111/91 (98) 104/98 Pulse Ox 98 98 96 O2 Delivery Room Air Room Air Room Air Room Air 07/10/21 00:00 Intake Total 1000 ml Balance 1000 ml (EDWARD CHI DO) Progress Progress Note : Progress Note Patient examined in no acute distress. Will give fentanyl 50 mcg IV push for pain and Norflex 30 mg IV push for muscle spasm. Will initiate sepsis work-up due to infection and increased pain. Labs reviewed and are relatively unremarkable, slight elevation in inflammatory markers. She has no elevation in white count, procalcitonin 0.02, lactic acid 1.5. Was able to manage pain with fentanyl and Norflex. Will provide hydrocodone and cyclobenzaprine outpatient and she is to have close follow-up with her primary care provider or with [facility] for further pain management. Discharge plan of care reviewed and she is agreeable with plan. (ATTILA ASENCIO STEM THRESHING MACHINE OPERATOR) Departure Impression Primary Impression: Epidural abscess Additional Impressions: Low back pain Osteomyelitis of lumbar vertebra Disposition: 01 HOME, SELF-CARE Condition: Improved Departure-Patient Inst. Referrals: [facility] [place] (PCP/Family) Primary Care Physician Patient Instructions: Low Back Pain (DC) Add. Discharge Instructions: Plan: 1. Follow up with your primary care provider if your symptoms persist. 2. Continue your antibiotics as prescribed. 3. You may take Hydrocodone every 6 hours as needed for severe pain. 4. May take Flexeril as needed in between for breakthrough pain with Ibuprofen. Do not take with Hydrocodone. 5. Call [facility] and your primary care provider on Sunday to discuss poor pain control. 6. Return for any new, concerning, or worsening symptoms. Scripts Hydrocodone/Acetaminophen (Hydrocodone-Acetamin 10-325 mg) 1 Each Tablet 1 EACH PO Q6H PRN for PAIN-SEVERE (8-10), #20 TAB 0 Refills Prov: ATTILA ASENCIO STEM THRESHING MACHINE OPERATOR 07/09/21 Cyclobenzaprine HCl (Cyclobenzaprine HCl) 10 Mg Tablet 10 MG PO Q8H PRN for SPASMS, #15 TAB 0 Refills Prov: ATTILA ASENCIO STEM THRESHING MACHINE OPERATOR 07/09/21 ATTENDING PHYSICIAN NOTE: I WAS PHYSICALLY PRESENT THE ER PHYSICIAN WHEN THIS PATIENT WAS IN ER, BUT I WAS NOT INVOLVED WITH THE DECISION MAKING OR ANY CARE OF THIS PATIENT. (EDWARD CHI DO) ATTILA ASENCIO APRN Jul 09, 2021 12:09 EDWARD CHI DO Jul 10, 2021 06:09
[2021-07-09] MEDS ORDERED: fentaNYL INJ 100 MCG/2 ML AMP IVP ONE (12:30)
[2021-07-09] MEDS ORDERED: NS IV 1000 ML 1,000 ML IV ONE (12:30)
[2021-07-09] MEDS ORDERED: ORPHENADRINE 60 MG/2 ML (NORFLEX) AMP (ED ONLY) IVP ONE (12:30)
[2021-07-09 12:31] LABS: BASOPHILS # (AUTO) 0.1 10^3/uL (0.0-0.1); BASOPHILS % (AUTO) 1 % (0-10); EOSINOPHILS # (AUTO) 0.1 10^3/uL (0.0-0.3); EOSINOPHILS % (AUTO) 1 % (0-10); HEMATOCRIT 38 % (35-52); HEMOGLOBIN 12.1 g/dL (11.5-16.0); LYMPHOCYTES # (AUTO) 2.4 10^3/uL (1.0-4.0); LYMPHOCYTES % (AUTO) 27 % (12-44); MEAN CORPUSCULAR HEMOGLOBIN 29 pg (25-34); MEAN CORPUSCULAR HGB CONC 32 g/dL (32-36); MEAN CORPUSCULAR VOLUME 89 fL (80-99); MEAN PLATELET VOLUME 9.4 fL (9.0-12.2); MONOCYTES # (AUTO) 0.5 10^3/uL (0.0-1.0); MONOCYTES % (AUTO) 6 % (0-12); NEUTROPHILS # (AUTO) 5.8 10^3/uL (1.8-7.8); NEUTROPHILS % (AUTO) 65 % (42-75); PLATELET COUNT 438 10^3/uL (130-400)
[2021-07-09 12:41] LABS: ALBUMIN 4.1 GM/DL (3.2-4.5); POTASSIUM 3.7 MMOL/L (3.6-5.0); PROTHROMBIN TIME PATIENT 13.7 SEC (12.2-14.7)
[2021-07-09 12:42] LABS: CALCIUM 10.4 MG/DL (8.5-10.1)
[2021-07-09 12:43] LABS: TOTAL PROTEIN 8.5 GM/DL (6.4-8.2)
[2021-07-09 12:45] LABS: BILIRUBIN,TOTAL 0.5 MG/DL (0.1-1.0)
[2021-07-09 12:47] LABS: CREATININE SERUM 0.78 MG/DL (0.60-1.30)
[2021-07-09 12:50] LABS: ERYTHROCYTE SEDIMENTATION RATE 60 MM/HR (0-20)
[2021-07-09 13:05] LABS: BILIRUBIN,URINE NEGATIVE (NEGATIVE); CLARITY,URINE SL CLOUDY; COLOR,URINE YELLOW; GLUCOSE, URINE (UA) NEGATIVE (NEGATIVE); KETONES,URINE NEGATIVE (NEGATIVE); LEUKOCYTE ESTERASE ,URINE NEGATIVE (NEGATIVE); NITRITE,URINE NEGATIVE (NEGATIVE); PROTEIN,URINE TRACE (NEGATIVE)
[2021-07-09] MEDS ORDERED: CYCL10TA9 PO (13:10)
[2021-07-09] MEDS ORDERED: HYDR-3820 PO (13:10)
[2021-07-09 13:18] LABS: AMORPHOUS SEDIMENT,UR RARE AMOR URATES /LPF; BACTERIA,URINE TRACE /HPF; WBC,URINE 0-2 /HPF
[2021-07-09 13:19] LABS: GRANULAR CASTS,URINE 0-2 /LPF
--- NOTE | 2021-07-09 13:53 | Diagnostic Imaging Report ---
INDICATION: Sepsis. FINDINGS: The heart size, mediastinal configuration, and pulmonary vascularity are within normal limits. There is no pleural effusion, pneumothorax, or pneumonia. The osseous structures are unremarkable. IMPRESSION: No acute cardiopulmonary abnormality. Dictated by: Dictated on workstation # [id number]
[2021-07-09 13:55] VITALS: BP 104/98
== END 2021-07-09 13:57 | disposition home or self-care (01) ==
LOC: EDUNIT# 12:01 → ER 12:03
DX: G06.2 Extradural and subdural abscess, unspecified (principal); M46.26 Osteomyelitis of vertebra, lumbar region; G89.29 Other chronic pain
CPT/HCPCS: 36415; 71045; 80053; 81000; 83605; 84145; 85025; 85610; 85652; 85730; 86141; 87040; 87088; 87324; 87449